=== PATIENT | female | born 1930 | race Caucasian/White ===

== ENCOUNTER 2017-05-30 09:54 | Emergency (ER) | payer BC, OTHER ==
[~2017-05-30] VITALS: Ht 160 cm; Wt 94.2 kg
[~2017-05-30 09:54] MED LIST: ASPI81TA28 PO; ATEN-173 PO; CYAN100020 PO; FURO20TA PO; LCTX PO; LISI-461 PO; MAGN400T6 PO; OMEP20CA9 PO; PRVHFAIN INH; SYN50 PO; XPNINS1255 INH; ZCR40 PO
[2017-05-30 10:00] VITALS: TEMP 36.8; Ht 160 cm; Wt 94.2 kg
[2017-05-30] MEDS ORDERED: SNG10 PO (10:06)
[2017-05-30] MEDS ORDERED: KETOROLAC TROMETHAMINE 30 MG/ML VIAL IV STA (10:24)
--- NOTE | 2017-05-30 10:54 | EMERGENCY ROOM VISIT NOTE ---
History Report prepared by Sukh: Claude Melton Under the Supervision of: Dr. Navarro Eng M.D. First contact with patient: 10:18 Chief Complaint: HIP PAIN Stated Complaint: HIP PAIN History of Present Illness The patient is a 86 year old female who presents to the Emergency Room with complaints of persistent right hip pain beginning six days ago. She states that her pain radiates up and into her lower back. She has a history of chronic back pain and multiple back surgeries. The patient's pain is worsened with walking. She denies any recent falls, straining or trauma. She also complains of right leg "heaviness" and bilateral leg "stiffness". The patient denies any known fevers, abdominal pain, chest pain, SOB, urinary symptoms, or loss of bowel or bladder continence. She notes that she was placed on a dieretic last week for leg swelling. She is on aspirin, but denies any other blood thinner use. Source of History: patient Onset: six days ago Position: pelvis (right hip) Timing: other (persistent) Associated Symptoms: + back pain (radiating from hip), No fevers, No chest pain, No SOB, No abdominal pain, No urinary symptoms Note: The patient denies loss of bowel or bladder continence. She also complains of right leg "heaviness" and bilateral leg "stiffness". Review of Systems See HPI for pertinent positives & negatives. A total of 10 systems reviewed and were otherwise negative. Past Medical & Surgical Medical Problems: (1) Acute bronchitis (2) CKD (chronic kidney disease), stage III (3) Degenerative disc disease, lumbar (4) Diastolic heart failure (5) GERD (gastroesophageal reflux disease) (6) H/o asthmatic bronchitis (7) H/O herpes zoster (8) History of hysteroscopy (9) History of left heart catheterization (10) Hyperlipidemia (11) Hypertension (12) Meningioma (13) Osteoporosis (14) Primary hyperparathyroidism (15) S/p removal right ovarian cyst (16) Stroke-like symptoms (17) Stroke-like symptoms (18) Tubular adenoma of colon (19) Venous insufficiency Surgical Problems: (1) H/O colonoscopy (2) History of ankle surgery (3) History of back surgery (4) History of carpal tunnel surgery (5) History of cataract surgery (6) s/p ankle fracture repair (7) S/P appendectomy (8) S/p cervical laminectomy (9) S/P colonoscopy (10) S/p EGD (11) S/P lumbar laminectomy Old medical records were reviewed. Nurse's notes were reviewed and I agree with. Family History Cancer Heart disease Social History Smoking Status: Never Smoker Drug Use: none Marital Status: Housing Status: lives alone Occupation Status: retired Current/Historical Medications Scheduled Aspirin (Aspirin Ec), 81 MG PO BID Atenolol (Tenormin), 25 MG PO QAM Cholecalciferol (Vitamin D3), 2,000 INTER.UNIT PO DAILY Lactobacillus Acidophilus (Lactinex), 1 TAB PO QAM Levothyroxine Sodium (Synthroid), 50 MCG PO QAM Lisinopril (Lisinopril), 5 MG PO QAM Magnesium Oxide (Mag-Ox), 400 MG PO QAM Montelukast Sod (Montelukast Sodium), 10 MG PO DAILY Omeprazole (Prilosec), 20 MG PO BID Simvastatin (Simvastatin), 40 MG PO HS Scheduled PRN Albuterol (Ventolin Hfa), 2 PUFF INH Q6H PRN for Wheezing Furosemide (Lasix), 20 MG PO DAILY PRN for PRN Levalbuterol (Levalbuterol), 0.63 MG INH Q6R PRN for Wheezing Oxycodone Immediate Rel Tab (Roxicodone Ir), 1 TAB PO Q6 PRN for Severe Pain Allergies Coded Allergies: No Known Allergies (Verified , 05/30/17) Physical Exam Vital Signs Date Time Temp Pulse Resp B/P (MAP) Pulse Ox O2 Delivery O2 Flow Rate FiO2 05/30/17 16:51 61 16 152/67 97 Room Air 05/30/17 16:07 57 18 134/64 96 Room Air 05/30/17 14:26 66 16 155/75 97 Room Air 05/30/17 13:08 63 16 189/67 96 Room Air 05/30/17 11:45 60 16 171/78 99 05/30/17 10:00 36.8 71 18 179/87 99 Room Air Physical Exam General: non-ill appearing older female in no acute distress. HEENT: Normal cephalic atraumatic. Pupils are equal round and reactive to light. Extraocular movements are intact. Oropharynx is pink with moist mucous membranes. No swelling of the mouth lips or tongue. Neck: Supple with a midline trachea. No meningeal signs or stiffness, no JVD or bruits. No Stridor. Chest: Clear to auscultation bilaterally. No wheezes or rhonchi. No increased work of breathing. Heart: regular rate and rhythm. Abdomen: Soft nontender, nondistended without rebound guarding or rigidity. Extremities: Pain along the right SI joint which is worse with movement. Spine/Back. Non tender to palpation. No CVA tenderness Skin: Good turgor without rashes. Neurologic exam: Cranial nerves two through 12 are intact. Motor and sensation are intact and symmetrical throughout. Medical Decision & Procedures ER Provider Diagnostic Interpretation: CT results as stated below per my review and radiologist interpretation: LUMBAR SPINE WITHOUT FINDINGS: Findings consistent with posterior laminectomies and fusions from L3 through L5. Interpedicular screws appear to be positioned appropriately. Vertebral body stature is normal. There is a disc spacer at L4-L5. There are degenerative intervertebral this changes L5-S1. There is a minimal grade 1 reversal spinal listhesis of L2 on L3. This is no more than 2 mm. Moderate degenerative disc changes noted throughout. By CT criteria no major compromise of the spinal canal. The transaxial images suggest moderate narrowing of the spinal canal at L2-L3 on a multifactorial basis. No additional stenotic process is appreciated. IMPRESSION: 1. Findings consistent with laminectomy and fusion from L3 through L5. 2. Moderate degenerative disc change throughout. 3. Moderate multifactorial narrowing of the spinal canal at L2-L3 The above report was generated using voice recognition software. It may contain grammatical, syntax or spelling errors. Electronically signed by: Valeriano Burnette M.D. ABD/PELVIS WITHOUT FOR STONE FINDINGS: Lung bases are clear. Liver spleen and pancreas are considered unremarkable. Kidneys negative for calcification or hydronephrosis. There are findings of mild chronic sigmoid diverticulosis. There is no evidence for acute diverticulitis. Postoperative changes of the lumbar spine including laminectomy and fusion are again noted. IMPRESSION: No acute process of the abdomen or pelvis. Postoperative changes of lumbar spine. Mild chronic sigmoid diverticulosis with no evidence for acute diverticulitis. The above report was generated using voice recognition software. It may contain grammatical, syntax or spelling errors. Electronically signed by: Valeriano Burnetet M.D. Laboratory Results 05/30/17 10:45 Red Blood Count 4.11, Mean Corpuscular Volume 92.5, Mean Corpuscular Hemoglobin 31.9, Mean Corpuscular Hemoglobin Concent 34.5, Mean Platelet Volume 9.6, Neutrophils (%) (Auto) 64.9, Lymphocytes (%) (Auto) 24.2, Monocytes (%) (Auto) 9.0, Eosinophils (%) (Auto) 1.3, Basophils (%) (Auto) 0.4, Neutrophils # (Auto) 3.59, Lymphocytes # (Auto) 1.34, Monocytes # (Auto) 0.50, Eosinophils # (Auto) 0.07, Basophils # (Auto) 0.02 05/30/17 10:45 Test 05/30/17 10:45 05/30/17 10:55 White Blood Count 5.53 K/uL (4.8-10.8) Red Blood Count 4.11 M/uL (4.2-5.4) Hemoglobin 13.1 g/dL (12.0-16.0) Hematocrit 38.0 % (37-47) Mean Corpuscular Volume 92.5 fL (80-100) Mean Corpuscular Hemoglobin 31.9 pg (25-34) Mean Corpuscular Hemoglobin Concent 34.5 g/dl (32-36) Platelet Count 201 K/uL (130-400) Mean Platelet Volume 9.6 fL (7.4-10.4) Neutrophils (%) (Auto) 64.9 % Lymphocytes (%) (Auto) 24.2 % Monocytes (%) (Auto) 9.0 % Eosinophils (%) (Auto) 1.3 % Basophils (%) (Auto) 0.4 % Neutrophils # (Auto) 3.59 K/uL (1.4-6.5) Lymphocytes # (Auto) 1.34 K/uL (1.2-3.4) Monocytes # (Auto) 0.50 K/uL (0.11-0.59) Eosinophils # (Auto) 0.07 K/uL (0-0.5) Basophils # (Auto) 0.02 K/uL (0-0.2) RDW Standard Deviation 42.3 fL (36.4-46.3) RDW Coefficient of Variation 12.5 % (11.5-14.5) Immature Granulocyte % (Auto) 0.2 % Immature Granulocyte # (Auto) 0.01 K/uL (0.00-0.02) Anion Gap 4.0 mmol/L (3-11) Est Creatinine Clear Calc Drug Dose 46.3 ml/min Estimated GFR () 61.7 Estimated GFR (Non- 53.3 BUN/Creatinine Ratio 10.6 (10-20) Calcium Level 9.3 mg/dl (8.5-10.1) Total Bilirubin 0.3 mg/dl (0.2-1) Direct Bilirubin 0.1 mg/dl (0-0.2) Aspartate Amino Transf (AST/SGOT) 17 U/L (15-37) Alanine Aminotransferase (ALT/SGPT) 20 U/L (12-78) Alkaline Phosphatase 59 U/L (45-117) Total Protein 6.3 gm/dl (6.4-8.2) Albumin 3.5 gm/dl (3.4-5.0) Lipase 143 U/L (73-393) Urine Color YELLOW Urine Appearance CLEAR (CLEAR) Urine pH 8.0 (4.5-7.5) Urine Specific [place] 1.012 (1.000-1.030) Urine Protein NEG (NEG) Urine Glucose (UA) NEG (NEG) Urine Ketones NEG (NEG) Urine Occult Blood NEG (NEG) Urine Nitrite NEG (NEG) Urine Bilirubin NEG (NEG) Urine Urobilinogen NEG (NEG) Urine Leukocyte Esterase NEG (NEG) Laboratory studies as stated above per my review. Medications Administered Medications (Trade) Dose Ordered Sig/Shiraz Route Start Time Stop Time Status Last Admin Dose Admin Ketorolac Tromethamine (Toradol Inj) 15 mg NOW STAT IV 05/30/17 10:24 05/30/17 10:27 DC 05/30/17 10:50 15 MG Ondansetron HCl (Zofran Inj) 4 mg NOW STAT IV 05/30/17 12:12 05/30/17 12:13 DC 05/30/17 12:19 4 MG Morphine Sulfate (MoRPHine SULFATE INJ) 2 mg NOW STAT IV 05/30/17 12:12 05/30/17 12:13 DC 05/30/17 12:20 2 MG ED Course 1018: Past medical records reviewed. The patient was evaluated in room A9B, and a complete history and physical examination were performed. 1024: Ordered Toradol Inj 15 mg IV. 1135: I checked in on the patient. She is at CT. 1210: I reassessed the patient. She is still having pain. 1212: Ordered Morphine Sulfate 2 mg IV, Zofran Inj 4 mg IV. 1310: I discussed the patient's case with the machine adjuster leader case trim. The patient will be evaluate for PT/OT. 1545: Upon reevaluation, the patient is resting. I discussed the results and treatment plan with the patient. She verbalized agreement of the treatment plan. The patient will be transferred to [facility]. Medical Decision Differentials include, but are not limited to; musculoskeletal, disc disease, cauda equina, trauma and electrolyte or metabolic abnormality. Blood pressure Screening: Patient was found to have an elevated blood pressure and was referred to their primary doctor for recheck and further treatment. Medication Reconciliation: I attest that I have personally reviewed the patient' s current medication list. This patient comes in as described above. She was placed in room A9. She was evaluation right SI joint and hip pain as well as back pain is worse with movement. She had no neurologic deficit or cauda equina syndrome. She's had back surgeries in the past. IV access established was given IV Toradol 15 mg. Blood work was obtained as well as urinalysis CAT scans were also obtained. She continues to have a lot of pain but only with movement. She was given IV morphine and Zofran and again felt better but she does not feel she can adequately go home as it hurts to move and she lives by herself. She has nothing to suggest infection or significant electrolyte or metabolic abnormality. CAT scan showed degenerative changes of the back. I did have her case management team talk to her. They are going to send her to rehabilitation. She did receive PT and OT evaluation. Her blood pressure was noted to be high in the ER however it came down on it's own. She's been treated for this and should follow-up with her regular doctor. She can use OxyIR for pain she tells me she's had this before 1 pill every 6 hours but was told to get up with assistance only. Return if: increasing pain, numbness or weakness, any new problems or concerns. she is going to be transferred to the halfway for rehabilitation. Impression Primary Impression: Right hip pain Additional Impression: Low back pain Scribe Attestation The scribe's documentation has been prepared under my direction and personally reviewed by me in its entirety. I confirm that the note above accurately reflects all work, treatment, procedures, and medical decision making performed by me. Departure Information Dispostion Other (Transferred to [facility]) Prescriptions Oxycodone Immediate Rel Tab (ROXICODONE IR) 5 Mg Tab 1 TAB PO Q6 Y for Severe Pain, #15 TAB Prov: Navarro Eng M.D. 05/30/17 Referrals Blanca Wynn M.D. (PCP) Patient Instructions My [facility] Problem Qualifiers
[2017-05-30 10:56] LABS: BASO % 0.4 %; BASO ABS # 0.02 K/uL (0-0.2); COMPLETE YES; EOS % 1.3 %; IG% 0.2 %; LYMPH % 24.2 %; LYMPH ABS # 1.34 K/uL (1.2-3.4); MEAN CELL VOLUME 92.5 fL (80-100); MEAN CORPUSCULAR HEMOGLOBIN 31.9 pg (25-34); MEAN CORPUSCULAR HGB CONC 34.5 g/dl (32-36); MEAN PLATELET VOLUME 9.6 fL (7.4-10.4); NEUT % 64.9 %; PLATELET COUNT 201 K/uL (130-400); RED BLOOD COUNT 4.11 M/uL (4.2-5.4); WHITE BLOOD COUNT 5.53 K/uL (4.8-10.8)
[2017-05-30 11:10] LABS: URINE APPEARANCE CLEAR (CLEAR); URINE BILIRUBIN NEG (NEG); URINE COLOR YELLOW; URINE NITRITE NEG (NEG); URINE SPECIFIC GRAVITY 1.012 (1.000-1.030); UROBILINOGEN NEG (NEG)
[2017-05-30 11:12] LABS: MANUAL MICROSCOPIC REQUIRED? NO; REVIEW REQ? NO
[2017-05-30 11:15] LABS: BUN/CREATININE RATIO 10.6 (10-20); CALCIUM 9.3 mg/dl (8.5-10.1); CREATININE 0.97 mg/dl (0.60-1.20); POTASSIUM 4.5 mmol/L (3.5-5.1)
--- NOTE | 2017-05-30 11:48 | DIAGNOSTIC IMAGING REPORT ---
LUMBAR SPINE WITHOUT CT DOSE: 1338.55 mGy.cm HISTORY: Pain. Neuropathy. eval for pain on right TECHNIQUE: Multiaxial CT images of the lumbar spine were performed and reformatted in the sagittal and coronal plane without the use of contrast. COMPARISON: None. FINDINGS: Findings consistent with posterior laminectomies and fusions from L3 through L5. Interpedicular screws appear to be positioned appropriately. Vertebral body stature is normal. There is a disc spacer at L4-L5. There are degenerative intervertebral this changes L5-S1. There is a minimal grade 1 reversal spinal listhesis of L2 on L3. This is no more than 2 mm. Moderate degenerative disc changes noted throughout. By CT criteria no major compromise of the spinal canal. The transaxial images suggest moderate narrowing of the spinal canal at L2-L3 on a multifactorial basis. No additional stenotic process is appreciated. IMPRESSION: 1. Findings consistent with laminectomy and fusion from L3 through L5. 2. Moderate degenerative disc change throughout. 3. Moderate multifactorial narrowing of the spinal canal at L2-L3 The above report was generated using voice recognition software. It may contain grammatical, syntax or spelling errors. Electronically signed by: Valeriano Burnette M.D. 05/30/2017 11:47 AM Dictated Date/Time: 05/30/2017 11:44 AM
--- NOTE | 2017-05-30 12:01 | DIAGNOSTIC IMAGING REPORT ---
ABD/PELVIS WITHOUT FOR STONE CT DOSE: HISTORY: Pain eval for stone, hematoma, pelvic disease TECHNIQUE: Multiaxial CT images of the abdomen and pelvis were performed without the use of intravenous and oral contrast according to the standard department stone protocol. COMPARISON STUDY: None. FINDINGS: Lung bases are clear. Liver spleen and pancreas are considered unremarkable. Kidneys negative for calcification or hydronephrosis. There are findings of mild chronic sigmoid diverticulosis. There is no evidence for acute diverticulitis. Postoperative changes of the lumbar spine including laminectomy and fusion are again noted. IMPRESSION: No acute process of the abdomen or pelvis. Postoperative changes of lumbar spine. Mild chronic sigmoid diverticulosis with no evidence for acute diverticulitis. The above report was generated using voice recognition software. It may contain grammatical, syntax or spelling errors. Electronically signed by: Valeriano Burnette M.D. 05/30/2017 12:00 PM Dictated Date/Time: 05/30/2017 11:58 AM
[2017-05-30] MEDS ORDERED: CHOL20007 PO (12:02)
[2017-05-30] MEDS ORDERED: MoRPHine SULFATE 2 MG/ML CARP IV STA (12:12)
[2017-05-30] MEDS ORDERED: ONDANSETRON INJ 2 MG/ML 2 ML VIAL IV STA (12:12)
[2017-05-30] MEDS ORDERED: OXYC1TAB3 PO (15:55)
[2017-05-30 16:51] VITALS: BP 152/67; PULSE 61; O2SAT 97
== END 2017-05-30 17:14 ==
LOC: EDBD 09:54 → C.EDA 09:58
DX: M25.551 Pain in right hip (principal); M54.5 Low back pain; G89.29 Other chronic pain; N18.3 Chronic kidney disease, stage 3 (moderate); I12.9 Hypertensive chronic kidney disease with stage 1 through stage 4 chronic kidney disease, or unspecified chronic kidney disease; K21.9 Gastro-esophageal reflux disease without esophagitis; E78.5 Hyperlipidemia, unspecified; M81.0 Age-related osteoporosis without current pathological fracture; E21.0 Primary hyperparathyroidism; Z98.49 Cataract extraction status, unspecified eye; Z80.9 Family history of malignant neoplasm, unspecified; Z79.82 Long term (current) use of aspirin; Z79.899 Other long term (current) drug therapy

== ENCOUNTER 2017-11-06 16:08 | Inpatient (IN) | payer BC, OTHER ==
[~2017-11-06] VITALS: Ht 162.6 cm; Wt 90.6 kg
[~2017-11-06 16:08] MED LIST changes: +CHOL20007 PO; -CYAN100020 PO; +OXYC1TAB3 PO; +SNG10 PO
[2017-11-06] MEDS ORDERED: ALBUT/IPRATROP 3MG/0.5MG NEB 3 ML VIAL INH STA ×3 (16:30→18:33)
[2017-11-06] MEDS ORDERED: METHYLPREDNISOLONE 125 MG VIAL IV STA (16:30)
[2017-11-06 16:40] LABS: COMPLETE YES; HEMATOCRIT 41.8 % (37-47); IG% 0.2 %; LYMPH % 23.3 %; LYMPH ABS # 1.02 K/uL (1.2-3.4); MEAN CELL VOLUME 92.3 fL (80-100); MEAN CORPUSCULAR HEMOGLOBIN 31.6 pg (25-34); MEAN CORPUSCULAR HGB CONC 34.2 g/dl (32-36); MONO % 6.2 %; NEUT % 70.3 %; PLATELET COUNT 216 K/uL (130-400); RED BLOOD COUNT 4.53 M/uL (4.2-5.4); WHITE BLOOD COUNT 4.38 K/uL (4.8-10.8)
[2017-11-06 16:55] LABS: ALT/SGPT 28 U/L (12-78); BLOOD UREA NITROGEN 16 mg/dl (7-18); BUN/CREATININE RATIO 12.7 (10-20); CALCIUM 10.2 mg/dl (8.5-10.1); CARBON DIOXIDE 20 mmol/L (21-32); CHLORIDE 104 mmol/L (98-107); CREATININE 1.28 mg/dl (0.60-1.20); GLUCOSE 167 mg/dl (70-99); POTASSIUM 3.9 mmol/L (3.5-5.1); SODIUM 137 mmol/L (136-145)
[2017-11-06 17:00] LABS: ALB/GLOB RATIO 1.1 (0.9-2); ALKALINE PHOSPHATASE 70 U/L (45-117); AST/SGOT 29 U/L (15-37); CKMB/CK RATIO 2.2 (0-3.0)
[2017-11-06] MEDS ORDERED: METO25TA3 PO (17:01)
[2017-11-06] MEDS ORDERED: LSN5 PO (17:01)
--- NOTE | 2017-11-06 17:05 | DIAGNOSTIC IMAGING REPORT ---
CHEST ONE VIEW PORTABLE CLINICAL HISTORY: 87 years-old Female presenting with EVALUATE RESPIRATORY DISTRESS.DYSPNEA. TECHNIQUE: Portable upright AP view of the chest was obtained. COMPARISON: 08/19/2016. FINDINGS: Atherosclerosis of aortic arch. Cardiac silhouette mildly enlarged. Lungs and pleural spaces clear. Apparent nodular opacity at the left lung base correlates to calcification within a costochondral junction. Degenerative changes of the thoracic spine. Upper abdomen normal. IMPRESSION: 1. No acute cardiopulmonary disease. Electronically signed by: Bhanu Love M.D. 11/06/2017 5:04 PM Dictated Date/Time: 11/06/2017 5:02 PM
[2017-11-06] MEDS ORDERED: ALBUTEROL HFA 8 GM INHALER INH PRN (18:45)
[2017-11-06] MEDS ORDERED: ACETAMINOPHEN 325 MG TAB PO PRN (18:45)
[2017-11-06] MEDS ORDERED: ONDANSETRON INJ 2 MG/ML 2 ML VIAL IV PRN (18:45)
--- NOTE | 2017-11-06 19:15 | History and Physical ---
History & Physical Date & Time of Service: Nov 06, 2017 at 18:58 Chief Complaint: Sob, Cough- Bronchitis, Weak, Shakey Primary Care Physician: Aime Pena M.D.(REED) History of Present Illness Source: patient, clinic records, hospital records This is an 87 year old female with a PMH of asthmatic bronchitis, HTN, HLD, hypothyroidism, ventricular ectopy, CKD stage 3, GERD, presents with a three day history of wheezing, shortness of breath, weakness. States that on MondayNovember 01 - she developed some sore throat symptoms. She thought nothing much of it, but then on Monday, she suddenly developed weakness, shortness of breath and audible wheezing. She was seen by Dr. Shi on November 04 and was given prednisone and Levaquin. She states that the symptoms did not improve. She presented to the ER with worsening shortness of breath and wheezing. Upon presentation, she received three nebulizer treatments and IV steroids with some improvement, but she continued to wheeze and feel weak. Denies chest pain, currently denies palpitations, though she has had these in the past. She felt feverish at home, but no documented fevers were noted. Past Medical/Surgical History Medical Problems: (1) CKD (chronic kidney disease), stage III Status: Chronic (2) Degenerative disc disease, lumbar Status: Chronic (3) Diastolic heart failure Status: Chronic (4) GERD (gastroesophageal reflux disease) Status: Chronic (5) H/o asthmatic bronchitis Status: Chronic (6) H/O herpes zoster Permanent Comment: prior shingles right T12 Status: Chronic (7) History of hysteroscopy Permanent Comment: cervical polypectomy Status: Chronic (8) History of left heart catheterization Permanent Comment: 02/27/03- Normal coronaries and LV function Status: Chronic (9) Hyperlipidemia Status: Chronic (10) Hypertension Status: Chronic (11) Meningioma Status: Chronic (12) Osteoporosis Status: Chronic (13) Primary hyperparathyroidism Status: Chronic (14) S/p removal right ovarian cyst Status: Chronic (15) Tubular adenoma of colon Status: Chronic (16) Venous insufficiency Status: Chronic Surgical Problems: (1) H/O colonoscopy Permanent Comment: 12/02/2010- diverticulosis Status: Chronic (2) History of ankle surgery Status: Chronic (3) History of back surgery Status: Chronic (4) History of carpal tunnel surgery Permanent Comment: bilateral Status: Chronic (5) History of cataract surgery Status: Chronic (6) s/p ankle fracture repair Status: Chronic (7) S/P appendectomy Status: Chronic (8) S/p cervical laminectomy Status: Chronic (9) S/P colonoscopy Status: Chronic (10) S/p EGD Status: Chronic (11) S/P lumbar laminectomy Status: Chronic Family History Cancer Heart disease Social History Smoking Status: Never Smoker Drug Use: none Marital Status: Housing status: lives alone Occupational Status: retired Immunizations History of Influenza Vaccine: Yes Influenza Vaccine Date: Aug 18, 2013 History of Tetanus Vaccine?: Unknown Tetanus Immunization Date: May 21, 2008 History of Pneumococcal: Yes Pneumococcal Date: Dec 19, 2010 History of Hepatitis B Vaccine: No Multi-Drug Resistant Organisms History of MDRO: No Allergies Coded Allergies: No Known Allergies (Verified , 11/06/17) Home Medications Scheduled Aspirin (Aspirin Ec), 81 MG PO BID Cholecalciferol (Vitamin D3), 2,000 INTER.UNIT PO DAILY Levothyroxine Sodium (Synthroid), 50 MCG PO QAM Lisinopril (Lisinopril), 5 MG PO DAILY Magnesium Oxide (Mag-Ox), 400 MG PO QAM Metoprolol Succinate (Toprol Xl), 25 MG PO DAILY Montelukast Sod (Montelukast Sodium), 10 MG PO HS Omeprazole (Prilosec), 20 MG PO BID Simvastatin (Simvastatin), 40 MG PO HS Scheduled PRN Albuterol (Ventolin Hfa), 2 PUFF INH Q6H PRN for Wheezing Furosemide (Lasix), 20 MG PO 2-3XWK PRN for PRN Review of Systems Constitutional: + fever, + weakness, No chills, No sweats, No weight loss, No fatigue Respiratory: + cough, + wheezing, + shortness of breath, + dyspnea on exertion , + dyspnea at rest, No sputum, No hemoptysis Cardiovascular: No chest pain, No orthopnea, No edema, No palpitations Abdomen: No pain, No nausea, No vomiting, No diarrhea, No constipation, No GI bleeding Musculoskeletal: + calf pain, No joint pain, No muscle pain, No swelling Genitourinary - Female: No dysuria, No urinary frequency, No urinary urgency, No urinary incontinence, No urinary retention, No hematuria Neurologic: + weakness, No numbness/tingling, No vertigo, No balance problems Psychiatric: No depression symptoms, No anxiety, No insomnia Endocrine: No fatigue Hematologic / Lymphatic: No abnormal bleeding/bruising Integumentary: No rash, No itch Allergic / Immunologic: No environmental allergies, No seasonal allergies, No frequent infections Physical Exam Vital Signs Date Time Temp Pulse Resp B/P (MAP) Pulse Ox O2 Delivery O2 Flow Rate FiO2 11/06/17 17:58 81 17 93 11/06/17 17:43 86 18 95 11/06/17 17:32 133/74 11/06/17 17:28 83 15 92 11/06/17 17:23 109 19 93 11/06/17 17:08 91 15 93 11/06/17 17:01 150/76 11/06/17 16:56 138/86 11/06/17 16:53 93 18 98 11/06/17 16:38 89 32 96 11/06/17 16:31 96 Room Air 11/06/17 16:31 95 Room Air 11/06/17 16:31 95 Room Air 11/06/17 16:23 102 21 96 11/06/17 16:20 181/96 11/06/17 16:13 36.5 132 20 158/92 95 Room Air General Appearance: WD/WN, + mild distress (mild respiratory distress) Head: normocephalic, atraumatic Eyes: normal inspection ENT: hearing grossly normal Neck: supple Respiratory/Chest: chest non-tender, no respiratory distress, no accessory muscle use, + wheezing (diffuse end expiratory wheezing) Cardiovascular: regular rate, rhythm, no edema, no gallop, no JVD, no murmur, normal peripheral pulses Abdomen/GI: normal bowel sounds, non tender, soft Extremities/Musculoskelatal: no calf tenderness, no pedal edema, normal range of motion, + swelling (LLE swelling, chronic) Neurologic/Psych: hand decorator II-XII nml as tested, no motor/sensory deficits, alert, normal mood/affect, oriented x 3 Skin: normal color, warm/dry, no rash Lymphatic: no adenopathy Diagnostics Laboratory Results Results Past 24 Hours Test 11/06/17 16:25 11/06/17 16:40 Range/Units White Blood Count 4.38 4.8-10.8 K/uL Red Blood Count 4.53 4.2-5.4 M/uL Hemoglobin 14.3 12.0-16.0 g/dL Hematocrit 41.8 37-47 % Mean Corpuscular Volume 92.3 80-100 fL Mean Corpuscular Hemoglobin 31.6 25-34 pg Mean Corpuscular Hemoglobin Concent 34.2 32-36 g/dl Platelet Count 216 130-400 K/uL Mean Platelet Volume 10.0 7.4-10.4 fL Neutrophils (%) (Auto) 70.3 % Lymphocytes (%) (Auto) 23.3 % Monocytes (%) (Auto) 6.2 % Eosinophils (%) (Auto) 0.0 % Basophils (%) (Auto) 0.0 % Neutrophils # (Auto) 3.08 1.4-6.5 K/uL Lymphocytes # (Auto) 1.02 1.2-3.4 K/uL Monocytes # (Auto) 0.27 0.11-0.59 K/uL Eosinophils # (Auto) 0.00 0-0.5 K/uL Basophils # (Auto) 0.00 0-0.2 K/uL RDW Standard Deviation 42.9 36.4-46.3 fL RDW Coefficient of Variation 12.8 11.5-14.5 % Immature Granulocyte % (Auto) 0.2 % Immature Granulocyte # (Auto) 0.01 0.00-0.02 K/uL Sodium Level 137 136-145 mmol/L Potassium Level 3.9 3.5-5.1 mmol/L Chloride Level 104 98-107 mmol/L Carbon Dioxide Level 20 21-32 mmol/L Anion Gap 12.0 3-11 mmol/L Blood Urea Nitrogen 16 7-18 mg/dl Creatinine 1.28 0.60-1.20 mg/dl Est Creatinine Clear Calc Drug Dose 34.1 ml/min Estimated GFR () 43.8 Estimated GFR (Non- 37.8 BUN/Creatinine Ratio 12.7 10-20 Random Glucose 167 70-99 mg/dl Calcium Level 10.2 8.5-10.1 mg/dl Total Bilirubin 0.3 0.2-1 mg/dl Aspartate Amino Transf (AST/SGOT) 29 15-37 U/L Alanine Aminotransferase (ALT/SGPT) 28 12-78 U/L Alkaline Phosphatase 70 45-117 U/L Total Creatine Kinase 82 26-192 U/L Creatine Kinase MB 1.8 0.5-3.6 ng/ml Creatine Kinase MB Ratio 2.2 0-3.0 Troponin I < 0.015 0-0.045 ng/ml Total Protein 7.5 6.4-8.2 gm/dl Albumin 4.0 3.4-5.0 gm/dl Globulin 3.5 2.5-4.0 gm/dl Albumin/Globulin Ratio 1.1 0.9-2 Influenza Type A Antigen Neg for Influ A NEG Influenza Type B Antigen Neg for Influ B NEG Microbiology Results 11/06/17 Blood Culture, Received Pending 11/06/17 Blood Culture, Received Pending Diagnostic Radiology CHEST ONE VIEW PORTABLE CLINICAL HISTORY: 87 years-old Female presenting with EVALUATE RESPIRATORY DISTRESS.DYSPNEA. TECHNIQUE: Portable upright AP view of the chest was obtained. COMPARISON: 08/19/2016. FINDINGS: Atherosclerosis of aortic arch. Cardiac silhouette mildly enlarged. Lungs and pleural spaces clear. Apparent nodular opacity at the left lung base correlates to calcification within a costochondral junction. Degenerative changes of the thoracic spine. Upper abdomen normal. IMPRESSION: 1. No acute cardiopulmonary disease. Impression Assessment and Plan This is an 87 year old female with a PMH of asthmatic bronchitis, HTN, HLD, hypothyroidism, ventricular ectopy, CKD stage 3, GERD, presents with a three day history of wheezing, shortness of breath, weakness. Acute Viral Bronchitis and Asthma Exacerbation hx. of recurrent asthmatic bronchitis failed outpatient prednisone and Levaquin treatment will admit to med/surg add Azithromycin and IV solu-medrol nebulizers around the clock - Xopenex due to tachycardia unlikely bacterial infection sees pulmonary as outpatient, but did not consult as of now HTN continue Lisinopril HLD continue Zocor Ventricular Ectopy continue Toprol CKD stage 3 creatinine at baseline follows with nephrology as outpatient Hx. of possible TIA takes aspirin 81mg BID as per neurology DVT ppx subq heparin FULL CODE PT/OT/discharge planning ordered - > 80yrs. old and lives alone Level of Care Med/Surg Resuscitation Status FULL RESUSCITATION VTE Prophylaxis VTE Risk Assessment Done? Y/N: Yes Risk Level: Moderate Social Service Consult >80 yr.& Lives Alone
[2017-11-06 20:15] VITALS: BP 160/81; PULSE 112; TEMP 36.5; O2SAT 96; Ht 162.6 cm; Wt 90.6 kg
--- NOTE | 2017-11-06 20:15 | EMERGENCY ROOM VISIT NOTE ---
History Report prepared by Sukh: Niya Rizzo Under the Supervision of: Dr. Ranjeet Raymond M.D. First contact with patient: 16:19 Chief Complaint: RESPIRATORY PROBLEMS Stated Complaint: SOB, COUGH- BRONCHITIS, WEAK, SHAKEY History of Present Illness The patient is an 87 year old female who presents to the Emergency Room with complaints of worsening respiratory problems starting two days ago. The patient states that it started as a runny nose and a scratchy throat six days ago. She reports that one day later she had a little cough, but no wheezing. She reports two days ago she started wheezing and it had progressively gotten worse. The patient states that she has had Bronchitis often and was given an emergency pack to start when she starts wheezing. She notes that she started to take them , but think that it was too late. She states that she visited [facility] and was given Prednisone and Levaquin. The patient complains of feeling nauseous, diaphoretic, having a cough, and left sided chest pain. She denies a history of lung problems, being a smoker, being around someone sick, and leg swelling. The patient notes a history of hypertension. Pt denies LOC, headache, fevers, chills, visual changes, neck pain, vomiting, abdominal pain, back pain, melena, hematochezia, urinary symptoms, numbness, weakness, lymphadenopathy, rash, or other complaints. Source of History: patient Onset: two days ago Position: other (global) Quality: other (global) Timing: worsening Associated Symptoms: + diaphoresis, + sorethroat, + cough, + chest pain, + nausea Note: The patient complains of a runny nose. Review of Systems See HPI for pertinent positives and negatives. A total of ten systems were reviewed and were otherwise negative. Past Medical & Surgical Medical Problems: (1) Acute bronchitis (2) CKD (chronic kidney disease), stage III (3) Degenerative disc disease, lumbar (4) Diastolic heart failure (5) GERD (gastroesophageal reflux disease) (6) H/o asthmatic bronchitis (7) H/O herpes zoster (8) History of hysteroscopy (9) History of left heart catheterization (10) Hyperlipidemia (11) Hypertension (12) Meningioma (13) Osteoporosis (14) Primary hyperparathyroidism (15) S/p removal right ovarian cyst (16) Stroke-like symptoms (17) Stroke-like symptoms (18) Tubular adenoma of colon (19) Venous insufficiency Surgical Problems: (1) H/O colonoscopy (2) History of ankle surgery (3) History of back surgery (4) History of carpal tunnel surgery (5) History of cataract surgery (6) s/p ankle fracture repair (7) S/P appendectomy (8) S/p cervical laminectomy (9) S/P colonoscopy (10) S/p EGD (11) S/P lumbar laminectomy Family History Cancer Heart disease Social History Smoking Status: Never Smoker Drug Use: none Marital Status: Housing Status: lives alone Occupation Status: retired Current/Historical Medications Scheduled Aspirin (Aspirin Ec), 81 MG PO BID Cholecalciferol (Vitamin D3), 2,000 INTER.UNIT PO DAILY Levothyroxine Sodium (Synthroid), 50 MCG PO QAM Lisinopril (Lisinopril), 5 MG PO DAILY Magnesium Oxide (Mag-Ox), 400 MG PO QAM Metoprolol Succinate (Toprol Xl), 25 MG PO DAILY Montelukast Sod (Montelukast Sodium), 10 MG PO HS Omeprazole (Prilosec), 20 MG PO BID Simvastatin (Simvastatin), 40 MG PO HS Scheduled PRN Albuterol (Ventolin Hfa), 2 PUFF INH Q6H PRN for Wheezing Furosemide (Lasix), 20 MG PO 2-3XWK PRN for PRN Allergies Coded Allergies: No Known Allergies (Verified , 11/06/17) Physical Exam Vital Signs Date Time Temp Pulse Resp B/P (MAP) Pulse Ox O2 Delivery O2 Flow Rate FiO2 11/06/17 17:58 81 17 93 11/06/17 17:43 86 18 95 11/06/17 17:32 133/74 11/06/17 17:28 83 15 92 11/06/17 17:23 109 19 93 11/06/17 17:08 91 15 93 11/06/17 17:01 150/76 11/06/17 16:56 138/86 11/06/17 16:53 93 18 98 11/06/17 16:38 89 32 96 11/06/17 16:31 96 Room Air 11/06/17 16:31 95 Room Air 11/06/17 16:31 95 Room Air 11/06/17 16:23 102 21 96 11/06/17 16:20 181/96 11/06/17 16:13 36.5 132 20 158/92 95 Room Air Physical Exam GENERAL: Awake, alert, well-appearing, in no distress HENT: Normocephalic, atraumatic. Oropharynx unremarkable. EYES: Normal conjunctiva. Sclera non-icteric. NECK: Supple. No nuchal rigidity. FROM. No JVD. RESPIRATORY: Expiratory wheezing. CARDIAC: Borderline tachycardic rate, normal rhythm. Extremities warm and well perfused. Pulses equal. ABDOMEN: Soft, non-distended. No tenderness to palpation. No rebound or guarding. No masses. RECTAL: Deferred. MUSCULOSKELETAL: Chest examination reveals no tenderness. The back is symmetrical on inspection without obvious abnormality. There is no CVA tenderness to palpation. No joint edema. LOWER EXTREMITIES: Calves are equal size bilaterally and non-tender. No edema. No discoloration. NEURO: Normal sensorium. No sensory or motor deficits noted. SKIN: No rash or jaundice noted. Clammy skin. Medical Decision & Procedures ER Provider Diagnostic Interpretation: Radiology results as stated below per my review and radiologist interpretation: CHEST ONE VIEW PORTABLE CLINICAL HISTORY: 87 years-old Female presenting with EVALUATE RESPIRATORY DISTRESS.DYSPNEA. TECHNIQUE: Portable upright AP view of the chest was obtained. COMPARISON: 08/19/2016. FINDINGS: Atherosclerosis of aortic arch. Cardiac silhouette mildly enlarged. Lungs and pleural spaces clear. Apparent nodular opacity at the left lung base correlates to calcification within a costochondral junction. Degenerative changes of the thoracic spine. Upper abdomen normal. IMPRESSION: 1. No acute cardiopulmonary disease. Electronically signed by: Bhanu Love M.D. 11/06/2017 5:04 PM Dictated Date/Time: 11/06/2017 5:02 PM Laboratory Results 11/06/17 16:25 Red Blood Count 4.53, Mean Corpuscular Volume 92.3, Mean Corpuscular Hemoglobin 31.6, Mean Corpuscular Hemoglobin Concent 34.2, Mean Platelet Volume 10.0, Neutrophils (%) (Auto) 70.3, Lymphocytes (%) (Auto) 23.3, Monocytes (%) (Auto) 6.2, Eosinophils (%) (Auto) 0.0, Basophils (%) (Auto) 0.0, Neutrophils # (Auto) 3.08, Lymphocytes # (Auto) 1.02, Monocytes # (Auto) 0.27, Eosinophils # (Auto) 0.00, Basophils # (Auto) 0.00 11/06/17 16:25 Test 11/06/17 16:25 11/06/17 16:40 White Blood Count 4.38 K/uL (4.8-10.8) Red Blood Count 4.53 M/uL (4.2-5.4) Hemoglobin 14.3 g/dL (12.0-16.0) Hematocrit 41.8 % (37-47) Mean Corpuscular Volume 92.3 fL (80-100) Mean Corpuscular Hemoglobin 31.6 pg (25-34) Mean Corpuscular Hemoglobin Concent 34.2 g/dl (32-36) Platelet Count 216 K/uL (130-400) Mean Platelet Volume 10.0 fL (7.4-10.4) Neutrophils (%) (Auto) 70.3 % Lymphocytes (%) (Auto) 23.3 % Monocytes (%) (Auto) 6.2 % Eosinophils (%) (Auto) 0.0 % Basophils (%) (Auto) 0.0 % Neutrophils # (Auto) 3.08 K/uL (1.4-6.5) Lymphocytes # (Auto) 1.02 K/uL (1.2-3.4) Monocytes # (Auto) 0.27 K/uL (0.11-0.59) Eosinophils # (Auto) 0.00 K/uL (0-0.5) Basophils # (Auto) 0.00 K/uL (0-0.2) RDW Standard Deviation 42.9 fL (36.4-46.3) RDW Coefficient of Variation 12.8 % (11.5-14.5) Immature Granulocyte % (Auto) 0.2 % Immature Granulocyte # (Auto) 0.01 K/uL (0.00-0.02) Anion Gap 12.0 mmol/L (3-11) Est Creatinine Clear Calc Drug Dose 34.1 ml/min Estimated GFR () 43.8 Estimated GFR (Non- 37.8 BUN/Creatinine Ratio 12.7 (10-20) Calcium Level 10.2 mg/dl (8.5-10.1) Total Bilirubin 0.3 mg/dl (0.2-1) Aspartate Amino Transf (AST/SGOT) 29 U/L (15-37) Alanine Aminotransferase (ALT/SGPT) 28 U/L (12-78) Alkaline Phosphatase 70 U/L (45-117) Total Creatine Kinase 82 U/L (26-192) Creatine Kinase MB 1.8 ng/ml (0.5-3.6) Creatine Kinase MB Ratio 2.2 (0-3.0) Troponin I < 0.015 ng/ml (0-0.045) Total Protein 7.5 gm/dl (6.4-8.2) Albumin 4.0 gm/dl (3.4-5.0) Globulin 3.5 gm/dl (2.5-4.0) Albumin/Globulin Ratio 1.1 (0.9-2) Influenza Type A Antigen Neg for Influ A (NEG) Influenza Type B Antigen Neg for Influ B (NEG) Laboratory results reviewed by me Medications Administered Medications (Trade) Dose Ordered Sig/Shiraz Route Start Time Stop Time Status Last Admin Dose Admin Albuterol/ Ipratropium (Duoneb) 3 ml NOW STAT INH 11/06/17 16:30 11/06/17 16:32 DC 11/06/17 16:46 3 ML Methylprednisolone Sodium Succinate (Solu-Medrol IV) 125 mg NOW STAT IV 11/06/17 16:30 11/06/17 16:32 DC 11/06/17 16:46 125 MG Albuterol/ Ipratropium (Duoneb) 3 ml NOW STAT INH 11/06/17 17:27 11/06/17 17:28 DC 11/06/17 17:31 3 ML Albuterol/ Ipratropium (Duoneb) 3 ml NOW STAT INH 11/06/17 18:33 11/06/17 18:34 DC 11/06/17 18:41 3 ML ECG Indication: SOB/dyspnea Rate (beats per minute): 96 Rhythm: normal sinus Findings: nonspecific-ST abn, no acute ischemic change, no ectopy ED Course 1628: The patient was evaluated in room A11B. A complete history and physical exam was performed. 1630: Ordered Solu-Medrol IV 125 mg IV, Duoneb 3 ml INH. 1727: Ordered Duoneb 3 ml INH. 1813: I reevaluated the patient and she is still wheezing some. 1816: Discussed the patient's case with Dr. Stevo Macdonald . The patient will be evaluated for further treatment and disposition. 183: Ordered Duoneb 3 ml INH. Medical Decision Triage Nursing notes reviewed. The patient's presentation and history were concerning for breathing difficulties. Etiologies such as pneumonia, COPD, reactive airway disease, CHF, cardiac ischemia, pulmonary embolism, pneumothorax, musculoskeletal, infections, gastrointestinal, as well as others were entertained. The patient was evaluated. She was wheezing. She was mildly dyspneic. She was given multiple nebulizer treatments and IV steroids. She was currently taking oral Levaquin. Chest x-ray was rather unremarkable. Blood work did not reveal any significant findings. Despite multiple nebulizer treatments she was still dyspneic and had significant cough and wheezing. She notes a history of this requiring admission. She has failed outpatient management. Consultation was made with internal medicine. The patient was evaluated in the Emergency Room for further management. Medication Reconcilliation Current Medication List: was personally reviewed by me Blood Pressure Screening Patient's blood pressure: Elevated blood pressure Will be further monitored by the hospitalist. Consults Time Called: 1814 Consulting Physician: Dr. Stevo Macdonald Returned Call: [id number] Discussed the patient's case with Dr. Stevo Macdonald . The patient will be evaluated for further treatment and disposition. Impression Primary Impression: SOB (shortness of breath) Additional Impressions: Wheezing RAD (reactive airway disease) Scribe Attestation The scribe's documentation has been prepared under my direction and personally reviewed by me in its entirety. I confirm that the note above accurately reflects all work, treatment, procedures, and medical decision making performed by me. Departure Information Dispostion Being Evaluated By Hospitalist Referrals Aime Pena M.D.([facility]) (PCP) Patient Instructions My [facility] Problem Qualifiers
[2017-11-06] MEDS ORDERED: AZITHROMYCIN 250 MG TAB PO ONE (20:27)
[2017-11-06 20:55] LABS: URINE APPEARANCE CLEAR (CLEAR); URINE BILIRUBIN NEG (NEG); URINE COLOR YELLOW; URINE NITRITE NEG (NEG); URINE SPECIFIC GRAVITY 1.013 (1.000-1.030); UROBILINOGEN NEG (NEG)
[2017-11-06 20:58] LABS: MANUAL MICROSCOPIC REQUIRED? NO; REVIEW REQ? NO
[2017-11-06] MEDS: LEVALBUTEROL 0.63MG/3 ML NEB INH SCH (20:58)
[2017-11-06 21:00] VITALS: PULSE 102; O2SAT 96
[2017-11-06] MEDS ORDERED: MONTELUKAST SOD 10 MG TAB PO SCH (21:00)
[2017-11-06] MEDS ORDERED: SIMVASTATIN 40 MG TAB PO SCH (21:00)
[2017-11-06 21:03] LABS: INR 0.9 (0.9-1.1); PROTHROMBIN TIME (PATIENT) 9.8 SECONDS (9.0-12.0)
[2017-11-06] MEDS: ASPIRIN 81 MG ECTAB PO SCH (21:28)
[2017-11-06] MEDS: PANTOprazole SOD 40 MG TAB PO SCH (21:35)
[2017-11-06] MEDS: HEPARIN SOD 5000 UNIT/0.5 ML CARP SQ SCH (22:28)
[2017-11-06] MEDS ORDERED: INFLUENZA VIRUS QUAD VACCINE 0.5 ML SYR IM. ONE (23:00)
[2017-11-06] MEDS ORDERED: PNEUMOCOCCAL POLYSACCHARIDES 25 MCG/0.5 ML VIAL/SYR IM. ONE (23:00)
[2017-11-06] MEDS ORDERED: INFLUENZA ADMINISTRATION CHARGE ONE (23:00)
[2017-11-06] MEDS ORDERED: PNEUMOCOCCAL ADMINISTRATION CHARGE ONE (23:00)
[2017-11-07 00:14] VITALS: BP 158/64; PULSE 79; TEMP 36.7; O2SAT 95
[2017-11-07 01:12] LABS: CKMB/CK RATIO 2.8 (0-3.0)
[2017-11-07 02:00] VITALS: PULSE 93; O2SAT 97
[2017-11-07] MEDS: LEVALBUTEROL 0.63MG/3 ML NEB INH SCH ×3 (02:00→14:14)
[2017-11-07] MEDS ORDERED: METHYLPREDNISOLONE IV 40 MG in SYRINGE 0 ML IV SCH (04:00)
[2017-11-07] MEDS: HEPARIN SOD 5000 UNIT/0.5 ML CARP SQ SCH ×2 (06:15→13:59)
[2017-11-07] MEDS ORDERED: LEVOTHYROXINE 50 MCG TAB PO SCH (06:30)
[2017-11-07 07:10] VITALS: PULSE 69; O2SAT 96
[2017-11-07 07:17] VITALS: BP 128/65; PULSE 70; TEMP 36.6; O2SAT 96
[2017-11-07] MEDS: ASPIRIN 81 MG ECTAB PO SCH (08:05)
[2017-11-07] MEDS: PANTOprazole SOD 40 MG TAB PO SCH (08:05)
[2017-11-07] MEDS ORDERED: NURSING DECISION MEDICATION ORDER SCH (08:30)
[2017-11-07] MEDS ORDERED: LISINOPRIL 5 MG TAB PO SCH (09:00)
[2017-11-07] MEDS ORDERED: CHOLECALCIFEROL 1000 INTER.UNIT TAB PO SCH (09:00)
[2017-11-07] MEDS ORDERED: AZITHROMYCIN 250 MG TAB PO SCH (09:00)
[2017-11-07] MEDS ORDERED: METOPROLOL SUCC 25MG EXT REL TAB PO SCH (09:00)
[2017-11-07] MEDS ORDERED: MAGNESIUM OXIDE 400 MG TAB PO SCH ×2 (09:00→12:00)
[2017-11-07 09:05] LABS: HEMATOCRIT 38.1 % (37-47); MEAN CELL VOLUME 92.5 fL (80-100); MEAN CORPUSCULAR HEMOGLOBIN 31.6 pg (25-34); MEAN CORPUSCULAR HGB CONC 34.1 g/dl (32-36); MEAN PLATELET VOLUME 10.3 fL (7.4-10.4); PLATELET COUNT 196 K/uL (130-400); RED BLOOD COUNT 4.12 M/uL (4.2-5.4); WHITE BLOOD COUNT 4.11 K/uL (4.8-10.8)
[2017-11-07 09:30] LABS: CKMB/CK RATIO 3.5 (0-3.0)
[2017-11-07 09:32] LABS: BUN/CREATININE RATIO 15.2 (10-20); CALCIUM 9.8 mg/dl (8.5-10.1); CREATININE 1.11 mg/dl (0.60-1.20); MAGNESIUM 1.9 mg/dl (1.8-2.4)
[2017-11-07 09:42] LABS: THYROID STIMULATING HORMONE 0.293 uIu/ml (0.300-4.500)
[2017-11-07] MEDS ORDERED: SENNA 8.6 MG TAB PO ONE (10:00)
[2017-11-07] MEDS ORDERED: BENZONATATE 100MG CAP PO ONE (10:00)
[2017-11-07] MEDS ORDERED: BENZ100C7 PO (11:37)
--- NOTE | 2017-11-07 11:46 | Progress Note ---
Internal Med Progress Note Date of Service: Nov 07, 2017. Provider Documentation: SUBJECTIVE: Patient feeling better today compared to yesterday. Patient reports that her wheezing is gone. Cough still present OBJECTIVE: Exam: General-no acute distress, breathing on room air, ambulates on room air Eyes- EOMI ENT- no exudates Neck- no JVD, trachea midline Lungs- CTABL, no wheezing, cough on expiration Heart-regular rate Abdomen- soft, nontender, + bowel sounds Extremities- no gross swelling Neuro- no focal deficits, ambulatory ASSESSMENT & PLAN: Patient was admitted on 11/06/17 with subsequent improvements in her breathing. When seen in the AM on 11/07/17, patient does not have wheezing. Breathing on room air. Does have cough on expiration on lung exam. But no physical exam findings of crackles or wheezing. Images and labs reviewed from 11/06/17 CXR on 11/06/17: No acute cardiopulmonary disease Atherosclerosis of aortic arch. Cardiac silhouette mildly enlarged. Lungs and pleural spaces clear. Apparent nodular opacity at the left lung base correlates to calcification within a costochondral junction. Degenerative changes of the thoracic spine. Upper abdomen normal. Blood culture from 11/06/17 pending Patient reports that she has been on prednisone taper regimen and Levaquin at home by [facility] During this hospital stay patient received IV meprednisone and oral Azithromycin. Since these hospital medications are somewhat equivalent to medications that patient has at home, she can finish her outpatient regimen or prednisone and Levaquin Discharge diagnosis primarily of Acute Bronchitis and Asthma Exacerbation Patient's discharge appointment to primary care doctor 11/08/2017 9:00 AM Aime Pena MD Family [facility] Patient is instructed to return to the emergency room if severe shortness of breath or wheezing or high fevers Vital Signs: Date Time Temp Pulse Resp B/P (MAP) Pulse Ox O2 Delivery O2 Flow Rate FiO2 11/07/17 08:00 Room Air 11/07/17 07:17 36.6 70 20 128/65 (86) 96 Room Air 11/07/17 07:10 69 16 96 Room Air 11/07/17 02:00 93 16 97 Room Air 11/07/17 00:14 36.7 79 20 158/64 (95) 95 Room Air 11/07/17 00:00 Room Air 11/06/17 21:00 102 16 96 Room Air 11/06/17 20:15 36.5 112 16 160/81 96 Room Air 11/06/17 19:47 83 18 128/71 95 11/06/17 17:58 81 17 93 11/06/17 17:43 86 18 95 11/06/17 17:32 133/74 11/06/17 17:28 83 15 92 11/06/17 17:23 109 19 93 11/06/17 17:08 91 15 93 11/06/17 17:01 150/76 11/06/17 16:56 138/86 11/06/17 16:53 93 18 98 11/06/17 16:38 89 32 96 11/06/17 16:31 96 Room Air 11/06/17 16:31 95 Room Air 11/06/17 16:31 95 Room Air 11/06/17 16:23 102 21 96 11/06/17 16:20 181/96 11/06/17 16:13 36.5 132 20 158/92 95 Room Air Lab Results: Results Past 24 Hours Test 11/06/17 16:25 11/06/17 16:40 11/06/17 20:40 11/07/17 00:40 Range/Units White Blood Count 4.38 4.8-10.8 K/uL Red Blood Count 4.53 4.2-5.4 M/uL Hemoglobin 14.3 12.0-16.0 g/dL Hematocrit 41.8 37-47 % Mean Corpuscular Volume 92.3 80-100 fL Mean Corpuscular Hemoglobin 31.6 25-34 pg Mean Corpuscular Hemoglobin Concent 34.2 32-36 g/dl Platelet Count 216 130-400 K/uL Mean Platelet Volume 10.0 7.4-10.4 fL Neutrophils (%) (Auto) 70.3 % Lymphocytes (%) (Auto) 23.3 % Monocytes (%) (Auto) 6.2 % Eosinophils (%) (Auto) 0.0 % Basophils (%) (Auto) 0.0 % Neutrophils # (Auto) 3.08 1.4-6.5 K/uL Lymphocytes # (Auto) 1.02 1.2-3.4 K/uL Monocytes # (Auto) 0.27 0.11-0.59 K/uL Eosinophils # (Auto) 0.00 0-0.5 K/uL Basophils # (Auto) 0.00 0-0.2 K/uL RDW Standard Deviation 42.9 36.4-46.3 fL RDW Coefficient of Variation 12.8 11.5-14.5 % Immature Granulocyte % (Auto) 0.2 % Immature Granulocyte # (Auto) 0.01 0.00-0.02 K/uL Prothrombin Time 9.8 9.0-12.0 SECONDS Prothromb Time International Ratio 0.9 0.9-1.1 Activated Partial Thromboplast Time 27.1 21.0-31.0 SECONDS Partial Thromboplastin Ratio 1.0 Sodium Level 137 136-145 mmol/L Potassium Level 3.9 3.5-5.1 mmol/L Chloride Level 104 98-107 mmol/L Carbon Dioxide Level 20 21-32 mmol/L Anion Gap 12.0 3-11 mmol/L Blood Urea Nitrogen 16 7-18 mg/dl Creatinine 1.28 0.60-1.20 mg/dl Est Creatinine Clear Calc Drug Dose 34.1 ml/min Estimated GFR () 43.8 Estimated GFR (Non- 37.8 BUN/Creatinine Ratio 12.7 10-20 Random Glucose 167 70-99 mg/dl Calcium Level 10.2 8.5-10.1 mg/dl Total Bilirubin 0.3 0.2-1 mg/dl Aspartate Amino Transf (AST/SGOT) 29 15-37 U/L Alanine Aminotransferase (ALT/SGPT) 28 12-78 U/L Alkaline Phosphatase 70 45-117 U/L Total Creatine Kinase 82 60 26-192 U/L Creatine Kinase MB 1.8 1.7 0.5-3.6 ng/ml Creatine Kinase MB Ratio 2.2 2.8 0-3.0 Troponin I < 0.015 < 0.015 0-0.045 ng/ml Total Protein 7.5 6.4-8.2 gm/dl Albumin 4.0 3.4-5.0 gm/dl Globulin 3.5 2.5-4.0 gm/dl Albumin/Globulin Ratio 1.1 0.9-2 Influenza Type A Antigen Neg for Influ A NEG Influenza Type B Antigen Neg for Influ B NEG Urine Color YELLOW Urine Appearance CLEAR CLEAR Urine pH 5.0 4.5-7.5 Urine Specific [place] 1.013 1.000-1.030 Urine Protein NEG NEG Urine Glucose (UA) NEG NEG Urine Ketones TRACE NEG Urine Occult Blood NEG NEG Urine Nitrite NEG NEG Urine Bilirubin NEG NEG Urine Urobilinogen NEG NEG Urine Leukocyte Esterase NEG NEG Test 11/07/17 08:39 Range/Units White Blood Count 4.11 4.8-10.8 K/uL Red Blood Count 4.12 4.2-5.4 M/uL Hemoglobin 13.0 12.0-16.0 g/dL Hematocrit 38.1 37-47 % Mean Corpuscular Volume 92.5 80-100 fL Mean Corpuscular Hemoglobin 31.6 25-34 pg Mean Corpuscular Hemoglobin Concent 34.1 32-36 g/dl RDW Standard Deviation 43.7 36.4-46.3 fL RDW Coefficient of Variation 13.0 11.5-14.5 % Platelet Count 196 130-400 K/uL Mean Platelet Volume 10.3 7.4-10.4 fL Sodium Level 137 136-145 mmol/L Potassium Level 4.0 3.5-5.1 mmol/L Chloride Level 105 98-107 mmol/L Carbon Dioxide Level 22 21-32 mmol/L Anion Gap 10.0 3-11 mmol/L Blood Urea Nitrogen 17 7-18 mg/dl Creatinine 1.11 0.60-1.20 mg/dl Est Creatinine Clear Calc Drug Dose 39.7 ml/min Estimated GFR () 52.1 Estimated GFR (Non- 44.9 BUN/Creatinine Ratio 15.2 10-20 Random Glucose 183 70-99 mg/dl Calcium Level 9.8 8.5-10.1 mg/dl Magnesium Level 1.9 1.8-2.4 mg/dl Total Creatine Kinase 68 26-192 U/L Creatine Kinase MB 2.4 0.5-3.6 ng/ml Creatine Kinase MB Ratio 3.5 0-3.0 Troponin I < 0.015 0-0.045 ng/ml Procalcitonin < 0.05 0-0.5 ng/ml Thyroid Stimulating Hormone (TSH) 0.293 0.300-4.500 uIu/ml Microbiology Results 11/06/17 Blood Culture, Received Pending 11/06/17 Blood Culture, Received Pending
--- NOTE | 2017-11-07 11:56 | Discharge Instructions ---
Discharge Instructions Date of Service Nov 07, 2017. Admission Reason for Admission: Acute Bronchitis Discharge Discharge Diagnosis / Problem: asthma , bronchitis Discharge Goals Goal(s): Improve function Activity Recommendations Activity Limitations: resume your previous activity Shower/Bathe: no limitations . Instructions / Follow-Up Instructions / Follow-Up Patient was admitted on 11/06/17 with subsequent improvements in her breathing. When seen in the AM on 11/07/17, patient does not have wheezing. Breathing on room air. Does have cough on expiration on lung exam. But no physical exam findings of crackles or wheezing. Images and labs reviewed from 11/06/17 CXR on 11/06/17: No acute cardiopulmonary disease Atherosclerosis of aortic arch. Cardiac silhouette mildly enlarged. Lungs and pleural spaces clear. Apparent nodular opacity at the left lung base correlates to calcification within a costochondral junction. Degenerative changes of the thoracic spine. Upper abdomen normal. Blood culture from 11/06/17 pending Patient reports that she has been on prednisone taper regimen and Levaquin at home by [facility] During this hospital stay patient received IV meprednisone and oral Azithromycin. Since these hospital medications are somewhat equivalent to medications that patient has at home, she can finish her outpatient regimen or prednisone and Levaquin Discharge diagnosis primarily of Acute Bronchitis and Asthma Exacerbation Patient's discharge appointment to primary care doctor 11/08/2017 9:00 AM Aime Pena MD Family Practice [facility] Patient is instructed to return to the emergency room if severe shortness of breath or wheezing or high fevers Vital Signs: Current Hospital Diet Patient's current hospital diet: Regular Diet Discharge Diet Recommended Diet: Regular Diet Pending Studies Studies pending at discharge: yes List of pending studies: blood culture pending final results, drawn from 11/06/17 Laboratory Results 11/07/17 08:39 11/07/17 08:39 Test 11/06/17 16:25 11/06/17 16:40 11/06/17 20:40 11/07/17 08:39 Immature Granulocyte % (Auto) 0.2 % White Blood Count 4.38 K/uL (4.8-10.8) Red Blood Count 4.53 M/uL (4.2-5.4) 4.12 M/uL (4.2-5.4) Hemoglobin 14.3 g/dL (12.0-16.0) Hematocrit 41.8 % (37-47) Mean Corpuscular Volume 92.3 fL (80-100) 92.5 fL (80-100) Mean Corpuscular Hemoglobin 31.6 pg (25-34) 31.6 pg (25-34) Mean Corpuscular Hemoglobin Concent 34.2 g/dl (32-36) 34.1 g/dl (32-36) Platelet Count 216 K/uL (130-400) Mean Platelet Volume 10.0 fL (7.4-10.4) 10.3 fL (7.4-10.4) Neutrophils (%) (Auto) 70.3 % Lymphocytes (%) (Auto) 23.3 % Monocytes (%) (Auto) 6.2 % Eosinophils (%) (Auto) 0.0 % Basophils (%) (Auto) 0.0 % Neutrophils # (Auto) 3.08 K/uL (1.4-6.5) Lymphocytes # (Auto) 1.02 K/uL (1.2-3.4) Monocytes # (Auto) 0.27 K/uL (0.11-0.59) Eosinophils # (Auto) 0.00 K/uL (0-0.5) Basophils # (Auto) 0.00 K/uL (0-0.2) Immature Granulocyte # (Auto) 0.01 K/uL (0.00-0.02) Prothrombin Time 9.8 SECONDS (9.0-12.0) Prothromb Time International Ratio 0.9 (0.9-1.1) Activated Partial Thromboplast Time 27.1 SECONDS (21.0-31.0) Partial Thromboplastin Ratio 1.0 Total Bilirubin 0.3 mg/dl (0.2-1) Aspartate Amino Transf (AST/SGOT) 29 U/L (15-37) Alanine Aminotransferase (ALT/SGPT) 28 U/L (12-78) Alkaline Phosphatase 70 U/L (45-117) Total Protein 7.5 gm/dl (6.4-8.2) Albumin 4.0 gm/dl (3.4-5.0) Globulin 3.5 gm/dl (2.5-4.0) Albumin/Globulin Ratio 1.1 (0.9-2) Influenza Type A Antigen Neg for Influ A (NEG) Influenza Type B Antigen Neg for Influ B (NEG) Urine Color YELLOW Urine Appearance CLEAR (CLEAR) Urine pH 5.0 (4.5-7.5) Urine Specific [place] 1.013 (1.000-1.030) Urine Protein NEG (NEG) Urine Glucose (UA) NEG (NEG) Urine Ketones TRACE (NEG) Urine Occult Blood NEG (NEG) Urine Nitrite NEG (NEG) Urine Bilirubin NEG (NEG) Urine Urobilinogen NEG (NEG) Urine Leukocyte Esterase NEG (NEG) RDW Standard Deviation 43.7 fL (36.4-46.3) RDW Coefficient of Variation 13.0 % (11.5-14.5) Anion Gap 10.0 mmol/L (3-11) Est Creatinine Clear Calc Drug Dose 39.7 ml/min Estimated GFR () 52.1 Estimated GFR (Non- 44.9 BUN/Creatinine Ratio 15.2 (10-20) Calcium Level 9.8 mg/dl (8.5-10.1) Magnesium Level 1.9 mg/dl (1.8-2.4) Total Creatine Kinase 68 U/L (26-192) Creatine Kinase MB 2.4 ng/ml (0.5-3.6) Creatine Kinase MB Ratio 3.5 (0-3.0) Troponin I < 0.015 ng/ml (0-0.045) Procalcitonin < 0.05 ng/ml (0-0.5) Thyroid Stimulating Hormone (TSH) 0.293 uIu/ml (0.300-4.500) Date/Time Source Procedure Growth Status 11/06/17 17:51 Blood Blood Culture Pending Received Medical Emergencies . Who to Call and When: Medical Emergencies: If at any time you feel your situation is an emergency, please call 911 immediately. . Non-Emergent Contact Non-Emergency issues call your: Primary Care Provider Call Non-Emergent contact if: you have a fever, you have any medication questions . . "Provider Documentation" section prepared by David Kaiser. . VTE Core Measure Inpt VTE Proph given/why not?: Unfractionated heparin SQ
--- NOTE | 2017-11-07 11:57 | Discharge Summary ---
Discharge Summary Date of Service Nov 07, 2017. Discharge Summary Admission Date: Nov 06, 2017 at 18:58 Discharge Date: Nov 07, 2017 Discharge Disposition: Home Principal Diagnosis: acute bronchitis / asthma exacerbation Medication Reconciliation New Medications: Benzonatate (Benzonatate) 100 Mg Cap 100 MG PO TID for 10 Days, #30 CAP Continued Medications: Albuterol (Ventolin Hfa) 60 Puffs/5400 Mcg Aers 2 PUFF INH Q6H PRN for Wheezing, #1 Aspirin (Aspirin Ec) 81 Mg Tab 81 MG PO BID Cholecalciferol (Vitamin D3) 2,000 Unit Tab 2000 INTER.UNIT PO DAILY, TAB 3 Refills Furosemide (Lasix) 20 Mg Tab 20 MG PO 2-3XWK PRN for PRN Levothyroxine Sodium (Synthroid) 50 Mcg Tab 50 MCG PO QAM Lisinopril (Lisinopril) 5 Mg Tab 5 MG PO DAILY Magnesium Oxide (Mag-Ox) 400 Mg Tab 400 MG PO QAM Metoprolol Succinate (Toprol Xl) 25 Mg Tabcr 25 MG PO DAILY Montelukast Sod (Montelukast Sodium) 10 Mg Tab 10 MG PO HS Omeprazole (Prilosec) 20 Mg Cap 20 MG PO BID Simvastatin (Simvastatin) 40 Mg Tab 40 MG PO HS Admission Information HPI (per Admitting provider): This is an 87 year old female with a PMH of asthmatic bronchitis, HTN, HLD, hypothyroidism, ventricular ectopy, CKD stage 3, GERD, presents with a three day history of wheezing, shortness of breath, weakness. States that on MondayNovember 01 - she developed some sore throat symptoms. She thought nothing much of it, but then on Monday, she suddenly developed weakness, shortness of breath and audible wheezing. She was seen by Dr. Shi on November 04 and was given prednisone and Levaquin. She states that the symptoms did not improve. She presented to the ER with worsening shortness of breath and wheezing. Upon presentation, she received three nebulizer treatments and IV steroids with some improvement, but she continued to wheeze and feel weak. Denies chest pain, currently denies palpitations, though she has had these in the past. She felt feverish at home, but no documented fevers were noted. Physical Exam (per Admitting): General Appearance: WD/WN, + mild distress (mild respiratory distress) Head: normocephalic, atraumatic Eyes: normal inspection ENT: hearing grossly normal Neck: supple Respiratory/Chest: chest non-tender, no respiratory distress, no accessory muscle use, + wheezing (diffuse end expiratory wheezing) Cardiovascular: regular rate, rhythm, no edema, no gallop, no JVD, no murmur , normal peripheral pulses Abdomen/GI: normal bowel sounds, non tender, soft Extremities/Musculoskelatal: no calf tenderness, no pedal edema, normal range of motion, + swelling (LLE swelling, chronic) Neurologic/Psych: melter caster II-XII nml as tested, no motor/sensory deficits, alert , normal mood/affect, oriented x 3 Skin: normal color, warm/dry, no rash Lymphatic: no adenopathy Hospital Course Patient was admitted on 11/06/17 with subsequent improvements in her breathing. When seen in the AM on 11/07/17, patient does not have wheezing. Breathing on room air. Does have cough on expiration on lung exam. But no physical exam findings of crackles or wheezing. Images and labs reviewed from 11/06/17 CXR on 11/06/17: No acute cardiopulmonary disease Atherosclerosis of aortic arch. Cardiac silhouette mildly enlarged. Lungs and pleural spaces clear. Apparent nodular opacity at the left lung base correlates to calcification within a costochondral junction. Degenerative changes of the thoracic spine. Upper abdomen normal. Blood culture from 11/06/17 pending Patient reports that she has been on prednisone taper regimen and Levaquin at home by [facility] During this hospital stay patient received IV meprednisone and oral Azithromycin. Since these hospital medications are somewhat equivalent to medications that patient has at home, she can finish her outpatient regimen or prednisone and Levaquin Discharge diagnosis primarily of Acute Bronchitis and Asthma Exacerbation Patient's discharge appointment to primary care doctor 11/08/2017 9:00 AM Aime Pena MD Family [facility] Patient is instructed to return to the emergency room if severe shortness of breath or wheezing or high fevers Total time spent on discharge = 60 minutes This includes examination of the patient, discharge planning, medication reconciliation, and communication with other providers. Discharge Instructions see above
[2017-11-07 12:30] VITALS: BP 128/65; PULSE 70; TEMP 36.6; O2SAT 96
[2017-11-07] MEDS ORDERED: BENZONATATE 100MG CAP PO SCH (14:00)
[2017-11-07 14:14] VITALS: PULSE 86; O2SAT 96
[2017-11-08] MEDS ORDERED: SENNA 8.6 MG TAB PO SCH (09:00)
== END 2017-11-07 14:46 | disposition home or self-care (01) | DRG 202 ==
LOC: C.EDB 16:10 → ENRESERV 18:55 → CANRESERV 18:55 → C.MED 18:58 → EDBEDREQTM 19:20 → EDBEDREQSVC 19:20 → CANRESERV 19:23 → ENRESERV 19:23
PROVIDERS: ADMIT Family Medicine; ATTEND Hospitalist
DX: J20.8 Acute bronchitis due to other specified organisms (principal); J45.901 Unspecified asthma with (acute) exacerbation; I12.9 Hypertensive chronic kidney disease with stage 1 through stage 4 chronic kidney disease, or unspecified chronic kidney disease; E78.5 Hyperlipidemia, unspecified; I49.3 Ventricular premature depolarization; N18.3 Chronic kidney disease, stage 3 (moderate); E03.9 Hypothyroidism, unspecified; K21.9 Gastro-esophageal reflux disease without esophagitis; Z86.73 Personal history of transient ischemic attack (TIA), and cerebral infarction without residual deficits; Z79.82 Long term (current) use of aspirin; Z82.49 Family history of ischemic heart disease and other diseases of the circulatory system

== ENCOUNTER 2019-01-31 08:11 | Observation (INO) ==
--- NOTE | 2019-01-15 16:18 | PAT Medication Instructions ---
Medication Instructions Date of Service January 15, 2019 Home Medications magnesium oxide 400 mg PO QAM aspirin 81 mg PO BID omeprazole 20 mg PO BID furosemide 20 mg PO DAILY PRN levothyroxine 50 mcg PO QAM cholecalciferol (vitamin D3) 2,000 unit PO QAM montelukast 10 mg PO PM levalbuterol tartrate 2 inh INHALATION Q6H PRN losartan 25 mg PO HS prednisone 10 mg PO DAILY PRN verapamil 120 mg PO QAM acetaminophen [Tylenol Extra 500 mg PO Q4H PRN polyethylene glycol 3350 [Miralax] 17 g PO DAILY PA rosuvastatin 20 mg PO HS Continue as directed prednisone 10 mg PO DAILY PRN RESCUE KIT ASK your prescriber and surgeon aspirin 81 mg PO BID DO NOT take the morning of surgery magnesium oxide 400 mg PO QAM furosemide 20 mg PO DAILY PRN cholecalciferol (vitamin D3) 2,000 unit PO QAM verapamil 120 mg PO QAM polyethylene glycol 3350 [Miralax] 17 g PO DAILY PA Take morning of surgery With a small sip of water, OTHERWISE NOTHING TO EAT OR DRINK AFTER MIDNIGHT: omeprazole 20 mg PO BID levothyroxine 50 mcg PO QAM levalbuterol tartrate 2 inh INHALATION Q6H PRN (if needed) acetaminophen [Tylenol Extra 500 mg PO Q4H PRN (okay to take up to 4 hours prior to surgery if needed) Take evening before surgery omeprazole 20 mg PO BID furosemide 20 mg PO DAILY PRN (if needed) montelukast 10 mg PO PM levalbuterol tartrate 2 inh INHALATION Q6H PRN (if needed) losartan 25 mg PO HS acetaminophen [Tylenol Extra 500 mg PO Q4H PRN (if needed) polyethylene glycol 3350 [Miralax] 17 g PO DAILY PA (if needed) rosuvastatin 20 mg PO HS Other Notes If you have any questions please call us at [phone] or [phone] or [phone] or [phone]
--- NOTE | 2019-01-16 10:47 | Anesthesiology Consultation ---
Date of Service January 16, 2019 Assessment & Plan (1) Encounter for pre-operative examination: - Cardio= 11/23/18= cough questionably related to beta lavonne or JUSTA inhibitor. Discussion with cardio; attempting to transition patient off of metoprolol and to CCB; also lisinopril switched to losartan (patient now taking verapamil/losartan and beta lavonne discontinued). Cough has improved but still occurs intermittently as of PAT visit 01/16. Furosemide frequency increased due to weight fluctuation and fluid. Patient states she has not needed to take the diuretic daily and LE edema has improved (trace non-pitting edema on 01/16 PAT evaluation). Repeat BMP done 01/16/19 WNL. - Nephrology= 11/26/18= stable CKD stage III (creatinine baseline at 1.0-1.2), f/u 6 months recommended - ASA instructions per surgeon/prescriber Chart Review Chart Review: Acceptable Risk for Surgery and Patient seen in Pre Admission Testing Teaching & Discussion Pre-Anesthesia Teaching/Discussion Notes: Instructed NPO after midnight before surgery,except medications with 15 cc of water. Medication instructions provided according to the PAT guidelines. History Surgery Operation Date: 01/31/19 11:30 Proposed Procedures p L2-L3 Laminectomy - Ranjeet Hendricks DO Height/Weight Height: 5 ft 3.5 in Weight: 90.5 kg Allergies Allergy/AdvReac Type Severity Reaction Status Date / Time No Known Allergies Allergy Verified 01/15/19 08:15 Medications Home Medications Medication Instructions Recorded Confirmed Last Taken magnesium oxide 400 mg PO QAM #0 06/09/11 01/15/19 01/07/19 08:00 aspirin 81 mg PO BID #0 04/14/15 01/15/19 01/01/19 22:00 omeprazole 20 mg PO BID #0 04/14/15 01/15/19 01/08/19 05:15 furosemide 20 mg PO DAILY PRN #0 07/29/16 01/15/19 Unknown levothyroxine 50 mcg PO QAM #0 08/19/16 01/15/19 01/07/19 07:30 cholecalciferol (vitamin D3) 2,000 unit PO QAM #0 tab 05/30/17 01/15/19 01/07/19 08:00 montelukast 10 mg PO PM #0 05/30/17 01/15/19 01/07/19 22:00 levalbuterol tartrate 2 inh INHALATION Q6H PRN 01/08/19 01/15/19 Unknown losartan 25 mg PO HS 01/08/19 01/15/19 01/08/19 05:15 prednisone 10 mg PO DAILY PRN 01/08/19 01/15/19 Unknown verapamil 120 mg PO QAM 01/08/19 01/15/19 01/08/19 05:15 acetaminophen [Tylenol Extra 500 mg PO Q4H PRN 01/15/19 01/15/19 Unknown Strength] polyethylene glycol 3350 [Miralax] 17 g PO DAILY PRN 01/15/19 01/15/19 Unknown rosuvastatin 20 mg PO HS 01/15/19 01/15/19 Unknown Past Medical History Medical History Bronchitis MOST RECENT FALL 2017; HAS RESCUE KIT TO USE PRN CKD (chronic kidney disease), stage III CVA (cerebral vascular accident) ? CVA VS. TIA 2+ YEARS AGO= ON ASA Cancer SKIN Chronic back pain GERD (gastroesophageal reflux disease) CONTROLLED Heart palpitations History of blood transfusion 2013 POST OP BACK SURGERY Hyperlipidemia Hyperparathyroidism Hypertension Hypothyroidism Obesity Osteoporosis Past Family History Family History Mother FHx: bladder cancer Father Family history of esophageal cancer Past Surgical History Surgical History History of cardiac cath 2007= NO STENTS; "NORMAL CORONARIES" History of carpal tunnel release BILATERAL History of cataract surgery BILATERAL History of esophagogastroduodenoscopy (EGD) History of lumbar surgery DISCECTOMY/FUSION History of open reduction and internal fixation (ORIF) procedure LEFT ANKLE Hx of appendectomy Hx of cervical spine surgery DISCECTOMY Hx of colonoscopy S/P hardware removal LEFT ANKLE Past Anesthesia History No Hx of Anesthesia Complications and No Family Hx of Anesthesia Complications History of PONV No Motion Sickness Screening History of Motion Sickness: Yes Social History Smoking Status: Never smoker Do You Dip or Chew Tobacco: No Hx Alcohol Use: Yes Alcohol type: wine alcohol intake frequency: a few times a month Hx Substance Use: No substance use type: does not use Exercise / Class Metabolic Activity III < 4 Walking/Shop/Light housework Review of Systems Chronic intermittent cough. Rare intermittent palpitations. Reflux controlled. Patient denies chest pain, shortness of breath, wheezing. Physical Exam Vital Signs VITALS BP 123/77 P 76 TEMP 98.1 SP02 96%RA RESP 18 PHYSICAL Full neck and c-spine range of motion. Full TMJ range of motion. TMD 3 finger breaths Mallampati Score 2 Dentition: multiple missing molars/sides Lungs: clear throughout to auscultation Cardiac: regular rate and rhythm, no murmurs noted Spine: normal Carotid arteries: negative bruit Extremities: trace non-pitting edema Testing Electrocardiogram Date: 01/16/19 NSR at 71bpm. Low voltage QRS. Chest X-Ray Date: 08/03/18 Findings: + NAD Echocardiogram Date: 08/20/16 LVEF 60-65%. No RWMA. Mild cLVH. Grade I DD. Mild WI. Stress Test Date: 03/25/14 Type: exercise Stress ECHO/EKG negative for inducible ischemia. LVEF 55-59%. Impaired LV myocardial relaxation. No significant valvular disease. 82% MPHR. 4.6METS. Laboratory Results 01/16/19 11:19 01/16/19 11:19 PT 10.2 Seconds (9.0-12.0) 01/16/19 11:19 INR 1.0 (0.9-1.1) 01/16/19 11:19 APTT 26.5 Seconds (21.0-31.0) 01/16/19 11:19 12/17/18 SODIUM 144 POTASSIUM 4.4 CHLORIDE 106 CO2 24 BUN 13 CREATININE 1.0 GLUCOSE 91
[2019-01-16 13:07] LABS: Basophils # (auto) 0.03 K/uL (0-0.2); Basophils % (auto) 0.4 %; Eosinophils # (auto) 0.08 K/uL (0-0.5); Eosinophils % (auto) 1.2 %; Hematocrit (blood only) 41.4 % (37-47); Hemoglobin 13.7 g/dL (12.0-16.0); Immature Granulocytes # (auto) 0.02 K/uL (0.00-0.02); Immature Granulocytes % (auto) 0.3 %; Lymphocytes # (auto) 2.01 K/uL (1.2-3.4); Mean Corpuscular Hgb Conc 33.1 g/dL (32-36); Mean Corpuscular Volume 94.7 fL (80-100); Monocytes # (auto) 0.61 K/uL (0.11-0.59); Monocytes % (auto) 9.1 %; Neutrophils # (auto) 3.95 K/uL (1.4-6.5); Platelet Count 195 K/uL (130-400); Red Blood Count 4.37 M/uL (4.2-5.4)
[2019-01-16 13:19] LABS: BUN Creatinine Ratio 14.1 (10-20); Calcium 9.5 mg/dl (8.5-10.1); Creatinine Clr Calc Pharmacy 41.9 ml/min; Est GFR (African American) 57.3; Est GFR (Non-African American) 49.4; Potassium 4.2 mmol/L (3.5-5.1)
[2019-01-16 13:22] LABS: Partial Thromboplastin Time 26.5 Seconds (21.0-31.0); Prothrombin Time 10.2 Seconds (9.0-12.0)
--- NOTE | 2019-01-30 21:38 | History and Physical Report ---
DATE OF ADMISSION: 01/31/2019 CHIEF COMPLAINT: Lower extremity, difficulty, paresthesias, numbness and tingling, gait abnormality, bladder retention. 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 PAST MEDICAL HISTORY: Positive for hypertension, high cholesterol, usual childhood diseases. PAST SURGICAL HISTORY: Appendectomy, low back surgery, neck surgery. ALLERGIES: Negative. FAMILY HISTORY: Lymphoma. SOCIAL HISTORY: She is , 2 children. No alcohol, no tobacco. Moderately active. REVIEW OF SYSTEMS: Twelve system review, negative for fevers, sweats, chills. Ear, nose and throat negative. No chest pain, palpitations. No asthma, wheezing. No nausea, vomiting, urgency or frequency. She has neurologic issues of numbness, tingling in lower extremity and muscle pain. MEDICATIONS: Levothyroxine, lisinopril, atenolol, aspirin, magnesium, simvastatin, Lasix. OBJECTIVE: GENERAL: She is 5 feet 3 inches, 97. She is in moderate distress, minimal discomfort sitting. VITAL SIGNS: Blood pressure 130/80, pulse 80, respiration 16, temperature 97.4. HEENT: Pupils react to light and accommodation. Ear, nose and throat clear. CARDIAC: Normal S1, S2, no S3. LUNGS: Clear to auscultation. ABDOMEN: Soft, nontender. MUSCULOSKELETAL: She has decreased motor strength in lower extremity and plantarflexion, dorsiflexion, decreased hip abductor strength. Slight loss of sensation, decreased range of motion. No upper motor neuron issues. IMPRESSION: Severe spinal stenosis of lumbar spine. PLAN: Includes procedure tomorrow of laminectomy L2-3 lumbar spine.
[~2019-01-31 08:11] MED LIST changes: +ACETAMINOPHEN 1000 MG/100 ML IV IV ONE; +ALBUTEROL 0.083% NEBU SOLN 3 ML VIAL INH PRN; -ASPI81TA28 PO; -ATEN-173 PO; +ATROPINE SULFATE 0.1 MG/ML 10ML SYR IV PRN; +CEFAZOLIN 2000MG 2,000 MG/15 ML SYR IV SCH; -CHOL20007 PO; -FURO20TA PO; +HYDROmorphone INJ 1 MG/ML SYRINGE IV PRN; -LCTX PO; -LISI-461 PO; +LR 15ML/HR IV SCH; -MAGN400T6 PO; -OMEP20CA9 PO; +ONDANSETRON INJ 2 MG/ML 2 ML VIAL IV PRN; -OXYC1TAB3 PO; -PRVHFAIN INH; -SNG10 PO; +SODIUM CHLORIDE 0.9% 1,000 ML IV SCH; -SYN50 PO; -XPNINS1255 INH; -ZCR40 PO; +ePHEDrine sulfate 50 MG/ML AMP IV PRN; +fentaNYL citrate 100 MCG/2 ML VIAL IV PRN
[2019-01-31] MEDS ORDERED: PROPOFOL IV EMULSION 10 MG/ML 20 ML VIAL IV ONE (08:26)
[2019-01-31] MEDS ORDERED: fentaNYL citrate 100 MCG/2 ML VIAL ONE ×2 (08:26→12:27)
[2019-01-31] MEDS ORDERED: DEXAMETHASONE SOD INJ 4 MG/ML VIAL ONE (08:26)
[2019-01-31] MEDS ORDERED: LIDOCAINE HCL 2% 2 ML VIAL/AMP(20MG/ML) INFIL ONE (08:26)
[2019-01-31] MEDS ORDERED: ONDANSETRON INJ 2 MG/ML 2 ML VIAL ONE (08:26)
[2019-01-31] MEDS ORDERED: GELATIN SPONGE SZ 100 ONE (09:44)
[2019-01-31] MEDS ORDERED: BUPIVACAINE/EPINEPHRINE 0.5% MPF 1:200,000 30 ML VIAL ONE (09:44)
[2019-01-31] MEDS ORDERED: BACITRACIN INJ 50,000 UNIT VIAL ONE (09:44)
[2019-01-31] MEDS ORDERED: THROMBIN FOR SOLN 20000 UNIT KIT ONE (09:44)
[2019-01-31] MEDS ORDERED: VANCOMYCIN HCL 1000MG/20ML VIAL ONE (09:44)
--- NOTE | 2019-01-31 10:05 | History & Physical Bridge Note ---
Date of Service January 31, 2019 History & Physical Bridge Note I have examined the patient, reviewed the History & Physical and in the interval since the performance of the History & Physical I have noted the following changes of clinical significance: no changes noted
[2019-01-31] MEDS ORDERED: HYDROmorphone INJ 2 MG/ML SYR/VIAL ONE (10:46)
[2019-01-31] MEDS ORDERED: ROCURONIUM BROMIDE 10 MG/ML 5 ML VIAL ONE (11:15)
--- NOTE | 2019-01-31 11:28 | Fluoroscopy Report ---
FL spine 1V any level HISTORY: 88 years-old Female L2-3 LAMINECTOMY postoperative changes of the lumbar spine COMPARISON: CT lumbar spine 01/08/2018 TECHNIQUE: 1 lateral spot fluoroscopic image of the lumbar spine was obtained utilizing 1.9 seconds f luoroscopy time FINDINGS: Posterior boby and screw fusion hardware at L3-S1. Discectomy changes at L4-L5. Grade 1 retrolisthesis L2 on L3 is unchanged. Multilevel spondylitic spurring. Metallic device is noted posterior to the L2 -L3 disc space. IMPRESSION: Fluoroscopic assistance as above. Please see operative report for further details. The above report was generated using voice recognition software. It may contain grammatical, syntax o r spelling errors. Electronically signed by: Harsh Wagoner M.D. 01/31/2019 11:26 AM
[2019-01-31] MEDS ORDERED: GLYCOPYRROLATE 0.2 MG/ML VIAL ONE (11:37)
[2019-01-31] MEDS ORDERED: NEOSTIGMINE METHYLSULFATE 5 MG/5 ML SYR ONE (11:37)
[2019-01-31] MEDS ORDERED: ePHEDrine sulfate 50 MG/ML AMP ONE (11:37)
[2019-01-31] MEDS ORDERED: PHENYLEPHRINE HCL 10 MG/ML VIAL ONE (11:39)
--- NOTE | 2019-01-31 12:00 | Post Operative Brief Note ---
Immediate Post Op Note v1 Date of Surgery January 31, 2019 Pre & Post Diagnosis Operation Date: 01/31/19 10:00 Pre-Op Diagnosis: Spinal Stenosis L2-L3 Post-Op Diagnosis: Spinal Stenosis L2-L3 Procedure Operation Date: 01/31/19 10:00 Actual Procedures l2-3, l3-4 LAMINECTOMY Applicable) - Ranjeet Hendricks DO Surgeon Ranjeet Hendricks DO Body Repairer [place] Estimated Blood Loss 250 Findings Consistent with Post-Op Diagnosis Drains [place] Catheter and Hemovac Drain (10F single )
[2019-01-31] MEDS ORDERED: HYDROmorphone INJ 0.5 MG/0.5 ML SYR ONE (12:36)
--- NOTE | 2019-01-31 13:29 | Anesthesiology Progress Note ---
Date of Service January 31, 2019 Anesthesia Post Procedure Vital Signs Vital Signs: Temp Pulse Pulse Resp BP Pulse Ox 01/31/19 13:20 56 L 14 141/66 H 97 01/31/19 13:10 53 L 14 118/55 L 98 01/31/19 13:00 36.1 C L 59 L 19 111/50 L 96 01/31/19 12:50 52 L 18 123/56 L 96 01/31/19 12:40 56 L 13 128/58 L 98 01/31/19 12:30 64 19 132/58 L 97 01/31/19 12:20 68 16 128/79 99 01/31/19 12:10 78 13 146/63 H 99 01/31/19 12:03 36.6 C 86 14 164/77 H 97 01/31/19 08:42 37 C 83 20 145/78 H 99 Pain Intensity Back: Pain Intensity: 3 Notes Mental Status: alert / awake / arousable and participated in evaluation Patient Amnestic to Procedure: Yes Nausea / Vomiting: adequately controlled Pain: adequately controlled Airway Patency, RR, SpO2: stable & adequate BP & HR: stable & adequate Hydration State: stable & adequate Anesthetic Complications: no major complications apparent and Pt Satisfied with anesthetic care
--- NOTE | 2019-01-31 13:45 | Operative Report ---
DATE OF OPERATION: 01/31/2019 PREOPERATIVE DIAGNOSIS: Severe spinal stenosis, lamina of L2-L3, lamina of L3-L4. POSTOPERATIVE DIAGNOSIS: Severe spinal stenosis, lamina of L2-L3, lamina of L3-L4. PROCEDURE: Two-level laminectomy, L2-L3, L3-L4 lumbar spine. SURGEON: Ranjeet Hendricks DO BURGL[employer] ALARM MECHANIC: Navarro Ybarra PA-C. BLOOD LOSS: 250. COMPLICATIONS: Zero. Comorbidities included obesity, prior surgery, chronic kidney disease and hypertension. DESCRIPTION OF PROCEDURE: The patient was taken to the operating room and general intubated anesthetic provided to the patient, placed prone, scrubbed, prepped, draped sterile. We made a skin incision, fascial incision. We came right down the lamina. She was very tight at between the segments of L2-L3 and L3-L4 lumbar spine. We used a marker to tawanda the interspace. We did a decompression of the lamina of L3-L4, L2-L3, lumbar spine, foraminotomies, partial facetectomy, tremendous amount of ligamentum flavum hypertrophy. There was no apparent nerve root injury or injury to the dural structures. We irrigated thoroughly, closed over layers over vancomycin powder and Hemovac drain with 1 Vicryl, 2-0 and 3-0 nylon on the skin. Sterile dressings applied. The patient returned to PACU stable. Sponge and needle count correct at the close and there were no complications. I attest to the content of the Intraoperative Record and any orders documented therein. Any exception s are noted below.
[2019-01-31] MEDS ORDERED: LEVALBUTEROL TARTRATE 15 GM HFA.AER.AD INH PRN (13:47)
[2019-01-31] MEDS ORDERED: FUROSEMIDE 20 MG TAB PO PRN (13:47)
[2019-01-31] MEDS ORDERED: ACETAMINOPHEN 1,000 MG/100 ML VIAL IV STA (13:47)
[2019-01-31] MEDS ORDERED: HYDROmorphone INJ 0.5 MG/0.5 ML SYR IV PRN (13:47)
[2019-01-31] MEDS ORDERED: ONDANSETRON INJ 2 MG/ML 2 ML VIAL IV PRN (13:47)
[2019-01-31] MEDS ORDERED: HYDROmorphone INJ 1 MG/ML SYRINGE IV PRN (13:47)
[2019-01-31] MEDS ORDERED: MAGNESIUM HYDROXIDE SUSP 30 ML UDC PO PRN (13:47)
[2019-01-31] MEDS ORDERED: predniSONE 10 MG TABLET PO PRN (13:47)
[2019-01-31] MEDS ORDERED: POLYETHYLENE (MIRALAX) 17 GM PACK PO PRN (13:47)
[2019-01-31] MEDS: SODIUM CHLORIDE 0.9% 1000ML 1,000 ML IV SCH (14:51)
[2019-01-31] MEDS: dexAMETHasone 6 MG in SYRINGE 0 ML IV SCH (18:58)
[2019-01-31] MEDS: CEFAZOLIN 2000MG 2,000 MG/15 ML SYR IV SCH (18:58)
[2019-01-31] MEDS ORDERED: NURSING DECISION MEDICATION ONE (21:34)
[2019-01-31] MEDS: DOCUSATE SODIUM 100 MG CAP PO SCH (21:37)
[2019-01-31] MEDS: LOSARTAN POTASSIUM 25 MG TAB PO SCH (21:37)
[2019-01-31] MEDS: ASPIRIN 81 MG ECTAB PO SCH (21:38)
[2019-01-31] MEDS: ROSUVASTATIN CALCIUM 20 MG TAB PO SCH (21:38)
[2019-01-31] MEDS: PANTOprazole 40 MG TAB PO SCH (21:38)
[2019-01-31] MEDS: MONTELUKAST SODIUM 10 MG TABLET PO SCH (21:38)
[2019-01-31] MEDS ORDERED: COUGH DROP (SUGAR FREE) LOZ 24 LOZ/1 BOX BUCCAL PRN (21:39)
[2019-02-01] MEDS: CEFAZOLIN 2000MG 2,000 MG/15 ML SYR IV SCH ×2 (01:06→09:24)
[2019-02-01] MEDS: OXYCODONE HCL IR 5 MG TAB (IMMEDIATE RELEASE) PO PRN ×3 (01:06→23:50)
[2019-02-01] MEDS: dexAMETHasone 6 MG in SYRINGE 0 ML IV SCH ×2 (01:07→09:24)
[2019-02-01] MEDS: SODIUM CHLORIDE 0.9% 1000ML 1,000 ML IV SCH (01:25)
[2019-02-01] MEDS: LEVOTHYROXINE SODIUM 50 MCG TABLET PO SCH (05:46)
--- NOTE | 2019-02-01 08:01 | Progress Note ---
DATE: 02/01/2019 SUBJECTIVE: Chioma is doing well today. Her quadriceps on the right hand is weak. OBJECTIVE: She is afebrile. Vital signs are stable. Alert, oriented, no chest pain. ASSESSMENT: Status post very rigorous spinal decompression of L2, L3, L4 lumbar spine. She has bruising of the associated nerve roots. PLAN: We will get her up and try to ambulate today. She will need rehabilitation. I recommend a rehab facility for about 2 weeks. I will follow her every day. I think she will be set for rehab placement by tomorrow which will be Monday.
--- NOTE | 2019-02-01 08:03 | Anesthesiology Progress Note ---
Date of Service February 01, 2019 Anesthesia Post Procedure Vital Signs Vital Signs: Temp Pulse Pulse Pulse Resp BP BP 02/01/19 07:22 36.5 C 67 16 150/65 H 02/01/19 03:12 36.9 C 69 14 106/64 01/31/19 23:06 36.5 C 71 14 132/68 01/31/19 19:09 36.4 C L 58 L 17 117/70 01/31/19 17:00 35.7 C L 01/31/19 16:33 60 17 106/63 01/31/19 15:26 47 L 17 103/57 L 01/31/19 14:30 46 L 18 114/68 01/31/19 14:00 45 L 18 111/60 01/31/19 13:30 36.4 C L 52 L 14 122/71 01/31/19 13:20 56 L 14 141/66 H 01/31/19 13:10 53 L 14 118/55 L 01/31/19 13:00 36.1 C L 59 L 19 111/50 L 01/31/19 12:50 52 L 18 123/56 L 01/31/19 12:40 56 L 13 128/58 L 01/31/19 12:30 64 19 132/58 L 01/31/19 12:20 68 16 128/79 01/31/19 12:10 78 13 146/63 H 01/31/19 12:03 36.6 C 86 14 164/77 H 01/31/19 08:42 37 C 83 20 145/78 H Pulse Ox 02/01/19 07:22 97 02/01/19 03:12 97 01/31/19 23:06 99 01/31/19 19:09 100 01/31/19 17:00 01/31/19 16:33 97 01/31/19 15:26 94 01/31/19 14:30 97 01/31/19 14:00 93 01/31/19 13:30 96 01/31/19 13:20 97 01/31/19 13:10 98 01/31/19 13:00 96 01/31/19 12:50 96 01/31/19 12:40 98 01/31/19 12:30 97 01/31/19 12:20 99 01/31/19 12:10 99 01/31/19 12:03 97 01/31/19 08:42 99 Pain Intensity Back: Pain Intensity: 3 Notes Mental Status: alert / awake / arousable and participated in evaluation Patient Amnestic to Procedure: Yes Nausea / Vomiting: adequately controlled Pain: adequately controlled Airway Patency, RR, SpO2: stable & adequate BP & HR: stable & adequate Hydration State: stable & adequate Anesthetic Complications: no major complications apparent and Pt Satisfied with anesthetic care
[2019-02-01] MEDS: CHOLECALCIFEROL 1,000 UNITS TAB PO SCH (09:14)
[2019-02-01] MEDS: ASPIRIN 81 MG ECTAB PO SCH ×2 (09:15→20:49)
[2019-02-01] MEDS: DOCUSATE SODIUM 100 MG CAP PO SCH ×2 (09:15→20:47)
[2019-02-01] MEDS: MAGNESIUM OXIDE 400 MG TAB PO SCH (09:15)
[2019-02-01] MEDS: PANTOprazole 40 MG TAB PO SCH ×2 (09:15→20:49)
[2019-02-01] MEDS: VERAPAMIL HCL 120 MG TABCR PO SCH (09:15)
[2019-02-01] MEDS: LOSARTAN POTASSIUM 25 MG TAB PO SCH (20:48)
[2019-02-01] MEDS: ROSUVASTATIN CALCIUM 20 MG TAB PO SCH (20:48)
[2019-02-01] MEDS: MONTELUKAST SODIUM 10 MG TABLET PO SCH (20:49)
[2019-02-02] MEDS: LEVOTHYROXINE SODIUM 50 MCG TABLET PO SCH (05:21)
[2019-02-02] MEDS: PANTOprazole 40 MG TAB PO SCH (08:38)
[2019-02-02] MEDS: VERAPAMIL HCL 120 MG TABCR PO SCH (08:38)
[2019-02-02] MEDS: DOCUSATE SODIUM 100 MG CAP PO SCH (08:38)
[2019-02-02] MEDS: ASPIRIN 81 MG ECTAB PO SCH (08:39)
[2019-02-02] MEDS: CHOLECALCIFEROL 1,000 UNITS TAB PO SCH (08:39)
[2019-02-02] MEDS: MAGNESIUM OXIDE 400 MG TAB PO SCH (08:39)
[2019-02-02] MEDS: OXYCODONE HCL IR 5 MG TAB (IMMEDIATE RELEASE) PO PRN ×2 (10:04→15:58)
--- NOTE | 2019-02-03 02:18 | Discharge Summary ---
She is alert, oriented. She still has fairly profound weakness to her right lower extremity, which would be equivalent to the 2 and 3, possibly 4 nerve roots on the right hand side. This was exactly directly correlating with her area of pressure and decompression. I fully expected the weakness. Wound is clean and dry. Vascular structures intact. She does have quad strength. It is just only 4-5. No chest pain or shortness of breath. ASSESSMENT: Status post lumbar spine decompression quadriceps weakness. PLAN: She is going to acute nursing facility and/or rehab facility, prescription for oxycodone on her chart. I should see her back in the office in approximately 12 days from the time of this dictation. Instructions given, precautions given. We will see her back for followup examination as stated. Back brace should be worn when she is up and ambulatory and she will need a wheeled walker.
== END 2019-02-02 16:36 ==
LOC: ASU 08:11 → 3E 08:11

== ENCOUNTER 2020-01-16 09:40 | Observation (INO) ==
[2020-01-16] MEDS ORDERED: SODIUM CHLORIDE 0.9% 1000ML 1,000 ML IV SCH (10:00)
[2020-01-16 10:05] LABS: Basophils # (auto) 0.02 K/uL (0-0.2); Basophils % (auto) 0.3 %; Eosinophils # (auto) 0.11 K/uL (0-0.5); Eosinophils % (auto) 1.5 %; Hematocrit (blood only) 42.3 % (37-47); Hemoglobin 13.9 g/dL (12.0-16.0); Immature Granulocytes # (auto) 0.02 K/uL (0.00-0.02); Immature Granulocytes % (auto) 0.3 %; Lymphocytes # (auto) 2.96 K/uL (1.2-3.4); Lymphocytes % (auto) 40.7 %; Mean Corpuscular Hemoglobin 31.6 pg (25-34); Mean Corpuscular Hgb Conc 32.9 g/dL (32-36); Mean Corpuscular Volume 96.1 fL (80-100); Mean Platelet Volume 10.7 fL (7.4-10.4); Monocytes # (auto) 0.48 K/uL (0.11-0.59); Monocytes % (auto) 6.6 %; Neutrophils # (auto) 3.69 K/uL (1.4-6.5); Neutrophils % (auto) 50.6 %; Platelet Count 225 K/uL (130-400); RDW Coefficient of Variation 13.1 % (11.5-14.5); RDW Standard Deviation 45.9 fL (36.4-46.3); White Blood Count 7.28 K/uL (4.8-10.8)
[2020-01-16 10:15] LABS: Partial Thromboplastin Time 26.8 Seconds (21.0-31.0)
[2020-01-16 10:21] LABS: Alanine Aminotransferase 22 U/L (12-78); Albumin Level 3.9 gm/dl (3.4-5.0); Aspartate Aminotransferase 25 U/L (15-37); BUN Creatinine Ratio 13.5 (10-20); Blood Urea Nitrogen 15 mg/dl (7-18); Calcium 9.9 mg/dl (8.5-10.1); Carbon Dioxide 26 mmol/L (21-32); Chloride 109 mmol/L (98-107); Est GFR (African American) 52.5; Est GFR (Non-African American) 45.3; Glucose 115 mg/dl (70-99); Magnesium 2.3 mg/dl (1.8-2.4); Sodium 141 mmol/L (136-145)
[2020-01-16 10:26] LABS: Albumin Globulin Ratio 1.1 (0.9-2); Alkaline Phosphatase 82 U/L (45-117); Bilirubin,Total 0.5 mg/dl (0.2-1); Globulin 3.4 gm/dl (2.5-4.0); Total Protein 7.3 gm/dl (6.4-8.2); Troponin I < 0.015 ng/ml (0-0.045)
--- NOTE | 2020-01-16 10:26 | XRay Report ---
XR chest 1V portable CLINICAL HISTORY: 89 years-old Female presenting with weakness. TECHNIQUE: Portable upright AP view of the chest was obtained. COMPARISON: 08/03/2018. FINDINGS: Atherosclerosis of the aortic arch. Cardiac silhouette mildly enlarged. No focal opacity. No large ef fusion or pneumothorax. Degenerative changes of the thoracic spine. Upper abdomen normal. IMPRESSION: 1. Mild chronic megaly. No other convincing evidence of acute cardiopulmonary disease. ACT 112: Negative or not required by law. Electronically signed by: Bhanu Love M.D. 01/16/2020 10:25 AM
[2020-01-16] MEDS ORDERED: OPTIRAY 320 125ml IV PRN (10:43)
--- NOTE | 2020-01-16 11:10 | CT Scan Report ---
UNENHANCED CT OF THE BRAIN; CT ANGIOGRAM OF THE BRAIN; CT ANGIOGRAM OF THE NECK CLINICAL HISTORY: Strokelike symptoms. Change in mental status. COMPARISON STUDY: CT of the brain dated 08/19/2016. MR angiogram of the brain dated 06/01/2011. Caroti d artery ultrasound dated 04/14/2015. MRI of the brain dated 08/19/2016. TECHNIQUE: Unenhanced axial CT scan of the brain is performed. Subsequently, following the IV adminis tration of 118 of [address] 320, CT angiogram of the head and neck was performed from the aortic arch t o the vertex. Images are reviewed in the axial, sagittal, and coronal planes. 3-D MIPS images are cre ated and assessed. IV contrast was administered without complication. All measurements were calculate d based on NASCET criteria. A dose lowering technique was utilized adhering to the principles of ALA RA. CT DOSE: 1060.00 mGy.cm FINDINGS: Brain parenchyma: There is age-related involutional change noting mild subcortical and periventricula r microangiopathic disease. There is no hemorrhage, mass effect, or evidence of acute territorial isc hemia by CT criteria. A 1.8 cm enhancing extra-axial lesion is again seen in the right anterior tempo ral fossa on image #86 of the angiographic phase series. A subtle 1.3 cm enhancing lesion along the r ight frontal convexity on image #130 is also likely unchanged. This is not well-visualized as compare d to previous MRI examinations. The ventricles, sulci, and cisterns are prominent secondary to involu tional change. Lowery-white matter differentiation is preserved. No extra-axial fluid collection is see n. Thoracic aorta: Visualized portions of the thoracic aorta are normal in caliber. The aortic arch demo nstrates standard 3-vessel anatomy. Right carotid arterial system: The right common carotid artery is widely patent, as are the right int ernal and external carotid arteries. Left carotid arterial system: The left common carotid artery is widely patent, as are the left product development intern al and external carotid arteries. Vertebral arteries: The vertebral arteries are patent bilaterally and codominant. Subclavian arteries: Widely patent bilaterally. Intracranial vasculature: The [place] of [place] is developmentally complete noting large bilateral pos terior communicating arteries. There is atherosclerotic calcification of the cavernous carotid arteri es. The internal carotid arteries are patent at the skull base, as are the anterior and middle cerebr al arteries bilaterally. The vertebrobasilar system is diminutive. The vertebral arteries and the bas ilar artery are patent, as are the posterior cerebral arteries. The left vertebral artery is dominant . There is no aneurysm, high-grade stenosis, or focal vessel cut off seen throughout the intracranial circulation. Jugular veins: Patent bilaterally. Dural sinuses: Patent. Lung apices: Partially visualized upper lobe lung parenchyma appears clear. Soft tissues: The visualized pharyngeal soft tissues are normal in appearance noting angiographic pha se technique. The oropharyngeal airway appears widely patent. Bilateral thyroid nodules measure up to 1.8 cm. The salivary glands are normal in appearance. No cervical lymphadenopathy is seen. Skeletal structures: The skeletal structures are osteopenic. The calvarium appears intact. The cervic al spine is maintained noting multilevel spondylosis. No lytic or blastic lesion is seen. Orbits: The bony orbits are intact. Orbital contents are normal in appearance noting bilateral ocular lens implants. Sinuses and mastoids: There is a 1.2 cm retention cyst and trace mucosal thickening within the right maxillary antrum. The remaining paranasal sinuses are clear. The mastoid air cells are well pneumatiz ed. IMPRESSION: 1. There is no hemorrhage, mass effect, or evidence of acute territorial ischemia by CT criteria. 2. Unremarkable CT angiogram of the brain. 3. Unremarkable CT angiogram of the neck. 4. There are at least 2 small enhancing extra-axial lesions as above. These were better characterized on previous MRI examinations and likely represent meningiomas. There is no associated mass effect. ACT 112: Negative or not required by law. Results electronically sent 01/16/2020 11:09 AM to: Colton Rg DO Electronically signed by: Lonnie Barrera M.D. 01/16/2020 11:09 AM
--- NOTE | 2020-01-16 13:10 | Emergency Department Note ---
Entered by Rajan Cabrera acting as a scribe for Colton Rg DO History of Present Illness General Chief complaint: Confusion Time Seen by Provider: 01/16/20 09:42 Source: patient and RN notes reviewed Limitations: no limitations History of Present Illness Onset (ago): hour(s) (this morning) Location: head Pain Consistency: + constant Maximum Pain Intensity: 0 Quality: + constant Associated symptoms: + denies other symptoms (trouble breathing); no chest pain, no headaches and no nausea/vomiting The patient is a 89 year old female who presents to the Emergency Room with complaints of confusion starting this morning. The patient states she went to bed okay last night. She states she usually wakes up around [id number] every morning and goes to the bathroom. She states she went to the bathroom this morning and then went back to sleep. She states she does not remember what happened after she went to the bathroom. She states she does not remember call ing her daughter, but states she remembers talking to her. She states she started to feel better on the way to the ED. She states she feels 80% right now. Nursing states the patient was crying on the phone with her daughter and then the daughter called 911. The patient denies having chest pain, headaches, nausea, vomiting, trouble breathing, and having a previous stroke. The patient states she has hypertension. Home Medications Home Medications Medication Instructions Recorded Confirmed Type furosemide 20 mg PO QAM #0 07/29/16 01/16/20 History levothyroxine 50 mcg PO QAM #0 08/19/16 01/16/20 History montelukast 10 mg PO QAM #0 05/30/17 01/16/20 History levalbuterol tartrate 2 inh INHALATION Q6H PRN 01/08/19 01/16/20 History losartan 25 mg PO QAM 01/08/19 01/16/20 History prednisone 10 mg PO DAILY PRN 01/08/19 01/16/20 History verapamil 120 mg PO QAM 01/08/19 01/16/20 History cholecalciferol (vitamin D3) 25 2,000 unit PO QAM cap 08/16/19 01/16/20 History mcg (1,000 unit) capsule magnesium oxide 400 mg (241.3 mg 40 mg PO QAM #90 tab 08/16/19 01/16/20 History magnesium) tablet omeprazole 20 mg capsule,delayed 20 mg PO BID cap 08/16/19 01/16/20 History release aspirin 81 mg PO BID 01/16/20 01/16/20 History rosuvastatin 5 mg PO HS 01/16/20 01/16/20 History Allergies Allergy/AdvReac Type Severity Reaction Status Date / Time No Known Allergies Allergy Verified 01/31/19 08:41 Past Med/Surg History Medical History Bronchitis MOST RECENT FALL 2017; HAS RESCUE KIT TO USE PRN Cancer SKIN Chronic back pain CKD (chronic kidney disease), stage III CVA (cerebral vascular accident) ? CVA VS. TIA 2+ YEARS AGO= ON ASA GERD (gastroesophageal reflux disease) CONTROLLED Heart palpitations History of blood transfusion 2013 POST OP BACK SURGERY Hyperlipidemia Hyperparathyroidism Hypertension Hypothyroidism Obesity Osteoporosis Surgical History History of cardiac cath 2007= NO STENTS; "NORMAL CORONARIES" History of carpal tunnel release BILATERAL History of cataract surgery BILATERAL History of esophagogastroduodenoscopy (EGD) History of lumbar surgery DISCECTOMY/FUSION History of open reduction and internal fixation (ORIF) procedure LEFT ANKLE Hx of appendectomy Hx of cervical spine surgery DISCECTOMY Hx of colonoscopy S/P hardware removal LEFT ANKLE Family History Mother FHx: bladder cancer Father Family history of esophageal cancer Social History Preferred Language: Tajik Communication Ability: Effective Epidemiologist Required: No Beliefs That Will Affect Care: None Current Living Situation: Family Current Living Situation Comment: lives with Mirella Other Information That Helps Us Care for You: No Feels Safe at Home: Yes Safety Concerns: Feels Safe At This Time Smoking Status: Never smoker Do You Dip or Chew Tobacco: No ; Second Hand Exposure: No ; Tobacco Cessation Education Requested by Patient: No Hx Alcohol Use: Yes Alcohol type: wine Hx Substance Use: No Review of Systems See HPI for pertinent positives & negatives. and A total of 10 systems reviewed and were otherwise negative Physical Exam Vital Signs Vital Signs - 24 hr 01/16/20 09:48 01/16/20 10:09 01/16/20 10:10 Temperature 36.8 C Temperature Source Oral Pulse Rate 67 Pulse Rate from SpO2 Sensor 66 68 Respiratory Rate 18 Blood Pressure 191/80 H 173/77 H Blood Pressure Mean 117 90 Pulse Oximetry 96 98 97 Oxygen Delivery Method Room Air Sepsis Recent Fever Within 48 Hours No Sepsis New/Unexplained Change in Mental Status No Sepsis Action Taken by Nursing No Action Required 01/16/20 10:30 01/16/20 10:31 01/16/20 10:58 Temperature Temperature Source Pulse Rate 68 Pulse Rate from SpO2 Sensor 63 68 70 Respiratory Rate 19 Blood Pressure 156/81 H 170/85 H Blood Pressure Mean 111 116 Pulse Oximetry 98 98 98 Oxygen Delivery Method Sepsis Recent Fever Within 48 Hours Sepsis New/Unexplained Change in Mental Status Sepsis Action Taken by Nursing 01/16/20 11:00 01/16/20 11:01 01/16/20 11:30 Temperature Temperature Source Pulse Rate 62 71 62 Pulse Rate from SpO2 Sensor 61 70 61 Respiratory Rate 11 L 25 H 17 Blood Pressure 172/86 H Blood Pressure Mean 120 Pulse Oximetry 98 99 99 Oxygen Delivery Method Sepsis Recent Fever Within 48 Hours Sepsis New/Unexplained Change in Mental Status Sepsis Action Taken by Nursing 01/16/20 11:31 01/16/20 11:32 01/16/20 12:00 Temperature Temperature Source Pulse Rate 63 71 67 Pulse Rate from SpO2 Sensor 63 68 67 Respiratory Rate 14 19 15 Blood Pressure 162/72 H 160/64 H Blood Pressure Mean 93 117 Pulse Oximetry 98 97 97 Oxygen Delivery Method Sepsis Recent Fever Within 48 Hours Sepsis New/Unexplained Change in Mental Status Sepsis Action Taken by Nursing 01/16/20 12:30 01/16/20 12:31 Temperature Temperature Source Pulse Rate 68 62 Pulse Rate from SpO2 Sensor 66 63 Respiratory Rate 20 16 Blood Pressure 177/87 H Blood Pressure Mean 141 Pulse Oximetry 98 98 Oxygen Delivery Method Sepsis Recent Fever Within 48 Hours Sepsis New/Unexplained Change in Mental Status Sepsis Action Taken by Nursing GENERAL: The patient is awake and alert. She is mildly anxious appearing but overall comfortable. EYES: The conjunctivae are clear. The pupils are round and reactive. EARS, NOSE, MOUTH AND THROAT: The nose is without any evidence of any deformity. Mucous membranes are moist. Tongue is midline. NECK: The neck is nontender and supple. RESPIRATORY: Normal respiratory effort is noted there is no evidence of wheezing rhonchi or rales CARDIOVASCULAR: Regular rate and rhythm noted there no murmurs rubs or gallops normal S1 normal S2. GASTROINTESTINAL: The abdomen is soft. Abdomen is nontender. MUSCULOSKELETAL/EXTREMITIES: There is no evidence of gross deformity full range of motion is noted in the hips and shoulders. SKIN: There is no obvious evidence of any rash. There are no petechiae, pallor or cyanosis noted. NEUROLOGIC: Patient is awake alert and oriented to person place and situation. She initially was unsure of the year but was able to eventually state that it was 2019. Strength is symmetric. There is no drift. There is no facial droop. Patient had some mistakes with simple math problems. Course Course 0948: The patient was evaluated in room B7, and a complete history and physical examination were performed. 1240: I discussed the patient's case with Carmen Phillip PA-C. Dr. Frank will evaluate the patient for further management. Administered Medications Furosemide (Lasix) 20 mg PO QAM [facility] Stop: 02/15/20 15:29 Last Admin: 01/16/20 15:37 Dose: 20 mg Documented by: [id number] Losartan Potassium (Cozaar) 25 mg PO QAM [facility] Stop: 02/15/20 15:29 Last Admin: 01/16/20 15:38 Dose: 25 mg Documented by: [id number] Verapamil HCl (Calan Sr) 120 mg PO QAM [facility] Stop: 02/15/20 15:29 Last Admin: 01/16/20 15:38 Dose: 120 mg Documented by: [id number] Discontinued Medications Sodium Chloride (Nss 1000ml) 1,000 mls @ 50 mls/hr IV .Q20H [facility] Stop: 02/15/20 09:59 Last Infusion: 01/16/20 15:25 Dose: 0 mls/hr Documented by: [id number] Admin: 01/16/20 10:55 Dose: 50 mls/hr Documented by: [id number] Ioversol (Optiray 320 125ml) 118 ml IV ONCE PRN PRN Reason: Interaction Checking Stop: 01/20/20 10:42 Last Admin: 01/16/20 10:46 Dose: 118 ml Documented by: [id number] Medical Decision Making Differential Diagnosis Differential Diagnosis includes but is not limited to ischemic Stroke, hemorrhagic stroke, bells palsy, mass, neoplasm, migraine headache, seizure, subarachnoid hemorrhage, TIA, and transient global amnesia. Medical Records Attestation: I reviewed the patient's medical records. Home Medications Current Medication List: was personally reviewed by me Laboratory Data Attestation: I reviewed the patient's lab results. Result diagrams: 01/16/20 09:30 01/16/20 09:30 Lab Results 01/16/20 01/16/20 01/16/20 Range/Units 09:30 09:30 09:30 WBC 7.28 (4.8-10.8) K/uL RBC 4.40 (4.2-5.4) M/uL Hgb 13.9 (12.0-16.0) g/dL Hct 42.3 (37-47) % MCV 96.1 (80-100) fL MCH 31.6 (25-34) pg MCHC 32.9 (32-36) g/dL RDW Std Deviation 45.9 (36.4-46.3) fL RDW Coeff of Vivienne 13.1 (11.5-14.5) % Plt Count 225 (130-400) K/uL MPV 10.7 H (7.4-10.4) fL Immature Gran % (Auto) 0.3 % Neut % (Auto) 50.6 % Lymph % (Auto) 40.7 % [place] % (Auto) 6.6 % Eos % (Auto) 1.5 % Baso % (Auto) 0.3 % Immature Gran # (Auto) 0.02 (0.00-0.02) K/uL Neut # (Auto) 3.69 (1.4-6.5) K/uL Lymph # (Auto) 2.96 (1.2-3.4) K/uL [place] # (Auto) 0.48 (0.11-0.59) K/uL Eos # (Auto) 0.11 (0-0.5) K/uL Baso # (Auto) 0.02 (0-0.2) K/uL PT 10.0 (9.0-12.0) Seconds INR 1.0 (0.9-1.1) APTT 26.8 (21.0-31.0) Seconds PTT Ratio 1.0 Sodium 141 (136-145) mmol/L Potassium 4.0 (3.5-5.1) mmol/L Chloride 109 H (98-107) mmol/L Carbon Dioxide 26 (21-32) mmol/L Anion Gap 6.0 (3-11) BUN 15 (7-18) mg/dl Creatinine 1.09 (0.6-1.2) mg/dl Est Cr Clr Drug Dosing 39.0 ml/min Est GFR ( Amer) 52.5 Est GFR (Non-Af Amer) 45.3 BUN/Creatinine Ratio 13.5 (10-20) Glucose 115 H (70-99) mg/dl Calcium 9.9 (8.5-10.1) mg/dl Magnesium 2.3 (1.8-2.4) mg/dl Total Bilirubin 0.5 (0.2-1) mg/dl AST 25 (15-37) U/L ALT 22 (12-78) U/L Alkaline Phosphatase 82 (45-117) U/L Troponin I < 0.015 (0-0.045) ng/ml Total Protein 7.3 (6.4-8.2) gm/dl Albumin 3.9 (3.4-5.0) gm/dl Globulin 3.4 (2.5-4.0) gm/dl Albumin/Globulin Ratio 1.1 (0.9-2) Imaging Data Radiologist's Impression: Radiology results as stated below per my review and the radiologist's interpretation: UNENHANCED CT OF THE BRAIN; CT ANGIOGRAM OF THE BRAIN; CT ANGIOGRAM OF THE NECK CLINICAL HISTORY: Strokelike symptoms. Change in mental status. COMPARISON STUDY: CT of the brain dated 08/19/2016. MR angiogram of the brain dated 06/01/2011. Carotid artery ultrasound dated 04/14/2015. MRI of the brain dated 08/19/2016. TECHNIQUE: Unenhanced axial CT scan of the brain is performed. Subsequently, fo llowing the IV administration of 118 of Optiray 320, CT angiogram of the head and neck was performed from the aortic arch to the vertex. Images are reviewed in the axial, sagittal, and coronal planes. 3-D MIPS images are created and assessed. IV contrast was administered without complication. All measurements were calculated based on NASCET criteria. A dose lowering technique was utilized adhering to the principles of ALARA. CT DOSE: 1060.00 mGy.cm FINDINGS: Brain parenchyma: There is age-related involutional change noting mild subcortical and periventricular microangiopathic disease. There is no hemorrhage, mass effect, or evidence of acute territorial ischemia by CT criteria. A 1.8 cm enhancing extra-axial lesion is again seen in the right anterior temporal fossa on image #86 of the angiographic phase series. A subtle 1.3 cm enhancing lesion along the right frontal convexity on image #130 is also likely unchanged. This is not well-visualized as compared to previous MRI examinations. The ventricles, sulci, and cisterns are prominent secondary to involutional change. Lowery-white matter differentiation is preserved. No extra- axial fluid collection is seen. Thoracic aorta: Visualized portions of the thoracic aorta are normal in caliber. The aortic arch demonstrates standard 3-vessel anatomy. Right carotid arterial system: The right common carotid artery is widely patent, as are the right internal and external carotid arteries. Left carotid arterial system: The left common carotid artery is widely patent, as are the left internal and external carotid arteries. Vertebral arteries: The vertebral arteries are patent bilaterally and codominant. Subclavian arteries: Widely patent bilaterally. Intracranial vasculature: The [place] is developmentally complete no ting large bilateral posterior communicating arteries. There is atherosclerotic calcification of the cavernous carotid arteries. The internal carotid arteries are patent at the skull base, as are the anterior and middle cerebral arteries bilaterally. The vertebrobasilar system is diminutive. The vertebral arteries and the basilar artery are patent, as are the posterior cerebral arteries. The left vertebral artery is dominant. There is no aneurysm, high-grade stenosis, or focal vessel cut off seen throughout the intracranial circulation. Jugular veins: Patent bilaterally. Dural sinuses: Patent. Lung apices: Partially visualized upper lobe lung parenchyma appears clear. Soft tissues: The visualized pharyngeal soft tissues are normal in appearance noting angiographic phase technique. The oropharyngeal airway appears widely patent. Bilateral thyroid nodules measure up to 1.8 cm. The salivary glands are normal in appearance. No cervical lymphadenopathy is seen. Skeletal structures: The skeletal structures are osteopenic. The calvarium appears intact. The cervical spine is maintained noting multilevel spondylosis. No lytic or blastic lesion is seen. Orbits: The bony orbits are intact. Orbital contents are normal in appearance noting bilateral ocular lens implants. Sinuses and mastoids: There is a 1.2 cm retention cyst and trace mucosal thickening within the right maxillary antrum. The remaining paranasal sinuses are clear. The mastoid air cells are well pneumatized. IMPRESSION: 1. There is no hemorrhage, mass effect, or evidence of acute territorial ischemia by CT criteria. 2. Unremarkable CT angiogram of the brain. 3. Unremarkable CT angiogram of the neck. 4. There are at least 2 small enhancing extra-axial lesions as above. These were better characterized on previous MRI examinations and likely represent meningiomas. There is no associated mass effect. ACT 112: Negative or not required by law. Results electronically sent 01/16/2020 11:09 AM to: Colton Rg DO Electronically signed by: Lonnie Barrera M.D. 01/16/2020 11:09 AM XR chest 1V portable CLINICAL HISTORY: 89 years-old Female presenting with weakness. TECHNIQUE: Portable upright AP view of the chest was obtained. COMPARISON: 08/03/2018. FINDINGS: Atherosclerosis of the aortic arch. Cardiac silhouette mildly enlarged. No focal opacity. No large effusion or pneumothorax. Degenerative changes of the thoracic spine. Upper abdomen normal. IMPRESSION: 1. Mild chronic megaly. No other convincing evidence of acute cardiopulmonary disease. ACT 112: Negative or not required by law. Electronically signed by: Bhanu Love M.D. 01/16/2020 10:25 AM ECG Data Attestation: I personally reviewed and interpreted this ECG as follows: Indication: + weakness Rate (beats per minute): 65 Rhythm: + normal sinus ECG ST segments: no ST depression and no ST elevation ECG Findings: + Other (Diffuse T wave flattening); no PACs and no PVCs Comparison ECG Date: from (02/02/19) Change: no significant change Blood Pressure Blood Pressure Findings: Elevated blood pressure Blood Pressure Disposition: further management by hospitalist GARIMA Moody Continuous Cardiac Monitoring: An order was placed for continuous cardiac monitoring. The monitor shows a rate of 66 with a normal sinus rhythm The patient is an 89-year-old female who presented to the emergency department for an evaluation of possible stroke. Apparently the patient states that she woke up this morning at her normal time to use the bathroom. This was approxi mately 6 AM. She then went back to sleep. After she woke up the second time she is not quite sure exactly what happened. The patient states that she has had difficulty remembering exactly getting dressed but at some point she called her daughter because she did not feel quite right. Her daughter then called the ambulance and the patient was sent to the emergency department for further evaluation. According the patient's daughter she was concerned her mother was having a stroke because of her dysarthria. The patient had very minor symptoms upon arrival including some difficulty remembering the events of the morning but also she could not do some simple math problems. She initially was not oriented to the year. She was reevaluated multiple times. She continued to improve while she was in the emergency department. The patient was not made a stroke alert because a definite last known well time could not be established. CT the head as well as CT angiography of the head and neck not reveal any acute disease. I discussed the patient's laboratory and radiographic studies with her . Given her presentation I do feel this could be consistent with a very significant TIA. For this reason I discussed her case with the on-call [facility] hospitalist group. They have agreed to evaluate the patient in the emergency department for further management and disposition. Impression & Plan TIA (transient ischemic attack) Discharge Plan Visit Data *Final* Discharge Date/Time: 01/16/20 13:50 Chief Complaint: Confusion ED Provider: Colton Rg Discharge Problem: TIA (transient ischemic attack) Patient Disposition: Admitted As Inpatient Discharge Instructions Interventions: ED Discharge Assessment Last Done: 01/16/20 13:50 The scribe's documentation has been prepared under my direction and personally reviewed by me in its entirety. I confirm that the note above accurately reflects all work, treatment, procedures, and medical decision making performed by me.
--- NOTE | 2020-01-16 13:38 | History & Physical Report ---
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 In ED patient remained hemodynamically stable. Her mental status completely returned to baseline upon my evaluation. CBC, CMP, troponin relatively unremarkable. She underwent chest x-ray which revealed cardiomegaly but no acute cardiopulmonary disease. Head CT was negative for hemorrhage, but did reveal chronic microvascular disease change 2 small enhancing extra-axial lesions, 1.8 cm right anterior temporal fossa and 1.3 cm right frontal convexity which are unchanged to prior exams, likely of present meningiomas. She did receive IVF while in ED. ddx: TIA, transient global amnesia, seizure like activity does not appear to be infectious as sx have resolved, she is afebrile and asymptomatic admit to tele consult neurology MRI ordered EEG Echocardiogram a1c, lipid panel in a.m. currently on ASA bid and crestor - await neuro recs for further antiplatelet activity if felt to be TIA (3) Hypertension: blood pressure elevated in ED did not take a.m. lasix, losartan or verapamil resume meds (4) Diastolic heart failure: euvolemic on exam per pt baseline weight 197-200lb continue lasix, losartan daily weights, strict I and O heart healthy diet echocardiogram ordered (5) Hyperlipidemia: continue statin (6) CKD (chronic kidney disease), stage III: baseline Cr 1.0 bun/cr stable 15 and 1.09 (7) GERD (gastroesophageal reflux disease): continue PPI (8) DVT prophylaxis: SCD/TEDS for now consider adding lovenox if to require hospitalization > 24hrs Disposition: admit to med tele Follow up: PCP Dr. Renae upon discharge Pt was seen and examined in collaboration with Dr. Frank, please see addendum History of Present Illness Chief Complaint: Confusion x few hours. 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 Her last known time well according to patient was approximately 8 AM. She said she woke up and was heading downstairs in her lift chair which is her normal routine. Last time she can recall was approximately 8 AM. She does not recall any events that occurred from then until when she was in the ambulance. She vaguely remembers being tended to and EMS but did not totally return to normal consciousness until in her ED room. According to report patient I called daughter and when she was noted to be dysarthric and confused therefore EMS was called. Per EMS report her symptoms were starting to improve when they saw her and continued to improve in route to ED. She denies any loss of bowel or bladder incontinence or generalized weakness. She denies any recent illness. She does admit to mild right-sided frontal headache 2/10 which is not unusual for her. She denies any dizziness, lightheadedness, visual changes, hearing changes, chest pain, shortness, palpitations, nausea, vomiting, diarrhea, dysuria, increased urgency or frequency with urination, melena, hematochezia. She does have a chronic dry cough. She took her levothyroxine this a.m. but no other a.m. medications. Appetite has been normal. She weighs her self daily and recalls weighing herself this morning but does not recall weight. Her weight fluctuates between 197 and 200. She does have mild lower extremity swelling for which she takes Lasix for. No recent significant stressors in life. 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 In ED patient remained hemodynamically stable. Her mental status completely returned to baseline upon my evaluation. CBC, CMP, troponin relatively unremarkable. She underwent chest x-ray which revealed cardiomegaly but no acute cardiopulmonary disease. Head CT was negative for hemorrhage, but did reveal chronic microvascular disease change 2 small enhancing extra-axial lesions, 1.8 cm right anterior temporal fossa and 1.3 cm right frontal convexity which are unchanged to prior exams, likely of present meningiomas. She did receive IVF while in ED. Allergies Allergy/AdvReac Type Severity Reaction Status Date / Time No Known Allergies Allergy Verified 01/31/19 08:41 Home Medications Home Medications Medication Instructions Recorded Confirmed Type furosemide 20 mg PO QAM #0 07/29/16 01/16/20 History levothyroxine 50 mcg PO QAM #0 08/19/16 01/16/20 History montelukast 10 mg PO QAM #0 05/30/17 01/16/20 History levalbuterol tartrate 2 inh INHALATION Q6H PRN 01/08/19 01/16/20 History losartan 25 mg PO QAM 01/08/19 01/16/20 History prednisone 10 mg PO DAILY PRN 01/08/19 01/16/20 History verapamil 120 mg PO QAM 01/08/19 01/16/20 History cholecalciferol (vitamin D3) 25 2,000 unit PO QAM cap 08/16/19 01/16/20 History mcg (1,000 unit) capsule magnesium oxide 400 mg (241.3 mg 40 mg PO QAM #90 tab 08/16/19 01/16/20 History magnesium) tablet omeprazole 20 mg capsule,delayed 20 mg PO BID cap 08/16/19 01/16/20 History release aspirin 81 mg PO BID 01/16/20 01/16/20 History rosuvastatin 5 mg PO HS 01/16/20 01/16/20 History Past Med/Surg History Medical History Bronchitis MOST RECENT FALL 2017; HAS RESCUE KIT TO USE PRN Cancer SKIN Chronic back pain CKD (chronic kidney disease), stage III CVA (cerebral vascular accident) ? CVA VS. TIA 2+ YEARS AGO= ON ASA GERD (gastroesophageal reflux disease) CONTROLLED Heart palpitations History of blood transfusion 2013 POST OP BACK SURGERY Hyperlipidemia Hyperparathyroidism Hypertension Hypothyroidism Obesity Osteoporosis Surgical History History of cardiac cath 2007= NO STENTS; "NORMAL CORONARIES" History of carpal tunnel release BILATERAL History of cataract surgery BILATERAL History of esophagogastroduodenoscopy (EGD) History of lumbar surgery DISCECTOMY/FUSION History of open reduction and internal fixation (ORIF) procedure LEFT ANKLE Hx of appendectomy Hx of cervical spine surgery DISCECTOMY Hx of colonoscopy S/P hardware removal LEFT ANKLE Family History Mother FHx: bladder cancer Father Family history of esophageal cancer Social History Preferred Language: Croatian Communication Ability: Effective Manager Cath Lab Required: No Beliefs That Will Affect Care: None Current Living Situation: Family Current Living Situation Comment: lives with Mirella Other Information That Helps Us Care for You: No Feels Safe at Home: Yes Safety Concerns: Feels Safe At This Time Smoking Status: Never smoker Do You Dip or Chew Tobacco: No ; Second Hand Exposure: No ; Tobacco Cessation Education Requested by Patient: No Hx Alcohol Use: Yes Alcohol type: wine Hx Substance Use: No Review of Systems Review of Systems: All systems reviewed & are unremarkable except as noted in HPI & below Physical Exam Physical Exam: Constitutional: WD/WN, vitals as above, NAD, sitting up in bed, pleasant, conversing easily Head: Normocephalic, Atraumatic Eyes: PERRL, conjunctivae normal, anicteric sclerae ENMT: external ear and nose normal, oropharynx normal, few absent teeth Neck: trachea midline, no thyromegaly normal visual inspection Respiratory: normal respiratory effort, lungs clear to auscultation, no wheeze, rales, rhonchi. Normal insp/exp effort, no accessory muscle use Cardiovascular: RRR, no murmur, no edema Vessels: no JVD or carotid bruit Chest: normal inspection of chest Abdomen: obese, normal bowel sounds, soft, nontender, no hepatosplenomegaly Musculoskeletal: no cyanosis or clubbing, extremities motor strength 5/5 Skin: no rashes, warm and dry normal turgor Neurologic: PERRL, EOMI, accommodation nl, no face palsy, no dysarthria CN's II-XI intact bilaterally and moves all extremities Psychiatric: A+Ox3, euthymic affect Lymphatic: no cervical or axillary lymphadenopathy : deferred Results & Data Vital Signs (Past 12 Hours) Vital Signs Temp Pulse Resp BP Pulse Ox 01/16/20 12:00 67 15 160/64 H 97 01/16/20 11:32 71 19 97 01/16/20 11:31 63 14 162/72 H 98 01/16/20 11:30 62 17 99 01/16/20 11:01 71 25 H 99 01/16/20 11:00 62 11 L 172/86 H 98 01/16/20 10:58 68 19 170/85 H 98 01/16/20 10:31 98 01/16/20 10:30 156/81 H 98 01/16/20 10:10 97 01/16/20 10:09 173/77 H 98 01/16/20 09:48 36.8 C 67 18 191/80 H 96 Laboratory Results Short CBC 01/16/20 01/16/20 Range/Units 09:30 09:30 WBC 7.28 (4.8-10.8) K/uL Hgb 13.9 (12.0-16.0) g/dL Hct 42.3 (37-47) % Plt Count 225 (130-400) K/uL Glucose 115 H (70-99) mg/dl BMP 01/16/20 09:30 Sodium 141 Potassium 4.0 Chloride 109 H Carbon Dioxide 26 BUN 15 Creatinine 1.09 Glucose 115 H Calcium 9.9 Cardiac Enzymes 01/16/20 Range/Units 09:30 Troponin I < 0.015 (0-0.045) ng/ml Liver Function 01/16/20 Range/Units 09:30 Total Bilirubin 0.5 (0.2-1) mg/dl AST 25 (15-37) U/L ALT 22 (12-78) U/L Alkaline Phosphatase 82 (45-117) U/L Albumin 3.9 (3.4-5.0) gm/dl Diagnostic Findings Head CT/Head and neck CTA: IMPRESSION: 1. There is no hemorrhage, mass effect, or evidence of acute territorial ischemia by CT criteria. 2. Unremarkable CT angiogram of the brain. 3. Unremarkable CT angiogram of the neck. 4. There are at least 2 small enhancing extra-axial lesions as above. These were better characterized on previous MRI examinations and likely represent meningiomas. There is no associated mass effect. CXR: IMPRESSION: 1. Mild chronic megaly. No other convincing evidence of acute cardiopulmonary disease. Medications Administered Sodium Chloride (Nss 1000ml) 1,000 mls @ 50 mls/hr IV .Q20H [facility] Stop: 02/15/20 09:59 Last Admin: 01/16/20 10:55 Dose: 50 mls/hr Documented by: [id number] Ioversol (Optiray 320 125ml) 118 ml IV ONCE PRN PRN Reason: Interaction Checking Stop: 01/20/20 10:42 Last Admin: 01/16/20 10:46 Dose: 118 ml Documented by: [id number] ECG Rate (beats per minute): 65 Rhythm: normal sinus Code Status & VTE Plan Code Status DNR VTE Prophylaxis Plan VTE Prophylaxis will be ordered: Yes Supervising Physician Co-Signing Physician Notes Attending addendum: The patient was seen and examined in emergency room She was brought into the emergency room with unresponsive episode at home She did not have any warning symptoms before that episode and she cannot remember anything about it In the emergency room she did not have any symptoms to report On examination Lying in bed with some discomfort at the back Hemodynamically stable Chest-clear to auscultate bilaterally Heart-S1-S2 regular, no murmur appreciated Abdomen-benign, nontender, bowel sounds present Extremities-trace edema bilaterally FLOOR ATTENDANT-alert, awake and oriented x3. Generally weak without any focal neuro deficit Admission labs, EKG and imaging studies noted No significant abnormalities were noted in CT of the head, CTA and EKG -Memory has returned to normal and she does not have any neurological deficit on examination Likely suffered transient global amnesia with a similar episode a few years back MRI of the head, echocardiogram with bubble study, neurology consult and EEG Reviewed assessment plan as outlined above by Luigi Frank
[2020-01-16] MEDS ORDERED: LEVALBUTEROL TARTRATE 15 GM HFA.AER.AD INH PRN (14:59)
[2020-01-16] MEDS ORDERED: POLYETHYLENE (MIRALAX) 17 GM PACK PO PRN (14:59)
[2020-01-16] MEDS ORDERED: ONDANSETRON INJ 2 MG/ML 2 ML VIAL IV PRN (14:59)
[2020-01-16] MEDS ORDERED: MAGNESIUM HYDROXIDE SUSP 30 ML UDC PO PRN (14:59)
[2020-01-16] MEDS ORDERED: PHARMACIST DISCHARGE MED REC CONSULT PRN (14:59)
[2020-01-16] MEDS ORDERED: ALUMINUM/MAGNESIUM SUSP 30 ML UDC PO PRN (14:59)
[2020-01-16] MEDS: FUROSEMIDE 20 MG TAB PO SCH (15:37)
[2020-01-16] MEDS: VERAPAMIL HCL 120 MG TABCR PO SCH (15:38)
[2020-01-16] MEDS: LOSARTAN POTASSIUM 25 MG TAB PO SCH (15:38)
--- NOTE | 2020-01-16 15:49 | Neurology Consultation ---
Date of Consultation January 16, 2020 Assessment & Plan (1) Transient confusion: 1. 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 CTA head and neck no significant stenosis or occlusion 3. CT head- no acute findings 4. MRI brain ordered pending 5. TTE- pending 6. continue aspirin 81 mg and add plavix 75 mg x 21 days then plavix for life 7. PT/OT no discharge needs at this time 8. optimize HTN, HLD LDL < 70 consider patient age 9. EEG ordered -will be done tomorrow- r/o focal seizure event (2) TIA (transient ischemic attack): Supervising Physician Co-Signing Physician Notes I have seen and discussed above patient with Dr Ranjeet Fairchild, neurology I have seen and examined and interviewed this 89-year-old woman in the presence of Yuliana Ruiz and her daughter. I saw her apparently 78 years ago for very similar event of transient global amnesia and it appears that she is had a recurrent event of fairly typical nature lasting probably 4 hours or so based on history we have available c haracterized by repetitious questioning and immediate memory deficits and total amnesia for the event She now has a generalized headaches but did not have this apparently in the last event does not have a history of migraines In addition to her age she has other vascular risk factors and we are going to need an MRI to be certain there is nothing small dominant medial temporal infarction or area of ischemia but thus far imaging studies have been unrevealing and CT angiography etc. was normal release but sufficiently abnormal to explain the current problem We will also do an EEG even though I doubt that this was a partial seizures or nonconvulsive seizure equivalent Currently her examination is normal he is back to her clinical baseline according to daughter and her only complaint is a mild headache Dr. Arora will be assuming her care tomorrow and reviewed the MRI and EEG results. 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 She called her daughter and she said her mother called her around 8a and was confused regarding where she was. She kept repeating the same thing so she called 911 and she was able to talk to her to get on the chair lift go down stairs and open the door. She does not recall any events that occurred from then until when she was in the ambulance. She vaguely remembers being tended to and EMS but kept asking how she got the the ED. Until in her ED room which would have been several hours she was then aware of where s he was and remembers the CT scan being done She does admit to mild right-sided frontal headache 2/10 which is not unusual for her. She does have a chronic dry cough. She does have mild lower extremity swelling for which she takes Lasix for. No recent significant stressors in life. She had an episode of transient global amnesia 7-8 years ago post traumatic event. She is currently feeling back to her baseline accept for a slight headache across her forehead. denies CP, SOB, abdominal pain, one sided weakness, numbness tingling, N, V. Allergies Allergy/AdvReac Type Severity Reaction Status Date / Time No Known Allergies Allergy Verified 01/31/19 08:41 Home Medications Home Medications Medication Instructions Recorded Confirmed Type furosemide 20 mg PO QAM #0 07/29/16 01/16/20 History levothyroxine 50 mcg PO QAM #0 08/19/16 01/16/20 History montelukast 10 mg PO QAM #0 05/30/17 01/16/20 History levalbuterol tartrate 2 inh INHALATION Q6H PRN 01/08/19 01/16/20 History losartan 25 mg PO QAM 01/08/19 01/16/20 History prednisone 10 mg PO DAILY PRN 01/08/19 01/16/20 History verapamil 120 mg PO QAM 01/08/19 01/16/20 History cholecalciferol (vitamin D3) 25 2,000 unit PO QAM cap 08/16/19 01/16/20 History mcg (1,000 unit) capsule magnesium oxide 400 mg (241.3 mg 40 mg PO QAM #90 tab 08/16/19 01/16/20 History magnesium) tablet omeprazole 20 mg capsule,delayed 20 mg PO BID cap 08/16/19 01/16/20 History release aspirin 81 mg PO BID 01/16/20 01/16/20 History rosuvastatin 5 mg PO HS 01/16/20 01/16/20 History Patient History Medical History Bronchitis MOST RECENT FALL 2017; HAS RESCUE KIT TO USE PRN Cancer SKIN Chronic back pain CKD (chronic kidney disease), stage III CVA (cerebral vascular accident) ? CVA VS. TIA 2+ YEARS AGO= ON ASA GERD (gastroesophageal reflux disease) CONTROLLED Heart palpitations History of blood transfusion 2013 POST OP BACK SURGERY Hyperlipidemia Hyperparathyroidism Hypertension Hypothyroidism Obesity Osteoporosis Surgical History History of cardiac cath 2007= NO STENTS; "NORMAL CORONARIES" History of carpal tunnel release BILATERAL History of cataract surgery BILATERAL History of esophagogastroduodenoscopy (EGD) History of lumbar surgery DISCECTOMY/FUSION History of open reduction and internal fixation (ORIF) procedure LEFT ANKLE Hx of appendectomy Hx of cervical spine surgery DISCECTOMY Hx of colonoscopy S/P hardware removal LEFT ANKLE Family History Mother FHx: bladder cancer Father Family history of esophageal cancer Social History Preferred Language: Azeri Communication Ability: Effective Automatic Thread Winder Required: No Beliefs That Will Affect Care: None Current Living Situation: Family Current Living Situation Comment: lives with Mirella Other Information That Helps Us Care for You: No Feels Safe at Home: Yes Safety Concerns: Feels Safe At This Time Smoking Status: Never smoker Do You Dip or Chew Tobacco: No ; Second Hand Exposure: No ; Tobacco Cessation Education Requested by Patient: No Hx Alcohol Use: Yes Alcohol type: wine Hx Substance Use: No Physical Exam Physical Exam: Physical Exam: Constitutional: appearance over nourished, healthy Ears, Nose, Mouth and Throat: mucous membranes moist, no injection and skin normal, eyes normal Cardiovascular: normal S-1 and S-2 and regular rate and rhythm Respiratory: course breath sounds Musculoskeletal: no peripheral edema and good distal pulses Skin: no stigmata of neurocutaneous disease noted and normal and intact Eyes: extraocular muscles intact (EOMI) and pupils equal, round and reactive to light (PERRL) NEUROLOGIC EXAMINATION: Mental status: Alert and interactive Oriented to full date and location Oriented to person Speech fluent with no evidence of aphasia Cranial Nerves smile eye brow raise symmetric Reflexes: Deep tendon reflexes were symmetrical and graded 2/5. down going toes Sensory: intact to light and cool touch Coordination: finger to nose no bi pass, rapid hand movements intact Gait/Stance: Posture normal sitting up in bed Motor: Negative for pronator drift of out stretched arms with eyes closed. 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 5/5 bilaterally, hip flex right 4+/5, left 5/5 plantar flex ext 5/5 bilaterally Results & Data Vital Signs (Past 12 Hours) Vital Signs Temp Pulse Pulse Resp BP BP Pulse Ox 01/16/20 15:34 36.5 C 87 18 184/78 H 97 01/16/20 13:32 64 13 130/65 99 01/16/20 13:31 71 10 L 130/65 99 01/16/20 13:30 64 17 100 01/16/20 13:00 66 21 184/94 H 99 01/16/20 12:31 62 16 177/87 H 98 01/16/20 12:30 68 20 98 01/16/20 12:00 67 15 160/64 H 97 01/16/20 11:32 71 19 97 01/16/20 11:31 63 14 162/72 H 98 01/16/20 11:30 62 17 99 01/16/20 11:01 71 25 H 99 01/16/20 11:00 62 11 L 172/86 H 98 01/16/20 10:58 68 19 170/85 H 98 01/16/20 10:31 98 01/16/20 10:30 156/81 H 98 01/16/20 10:10 97 01/16/20 10:09 173/77 H 98 01/16/20 09:48 36.8 C 67 18 191/80 H 96 Laboratory Results Abnormal lab results 01/16/20 01/16/20 Range/Units 09:30 09:30 MPV 10.7 H (7.4-10.4) fL Chloride 109 H (98-107) mmol/L Glucose 115 H (70-99) mg/dl Diagnostic Findings CT head/CTA head and neck-There is no hemorrhage, mass effect, or evidence of acute territorial ischemia by CT criteria. . Unremarkable CT angiogram of the brain. . Unremarkable CT angiogram of the neck. There are at least 2 small enhancing extra-axial lesions as above. These were better characterized on previous MRI examinations and likely represent meningiomas. There is no associated mass effect. CXR-Mild chronic megaly. No other convincing evidence of acute cardiopulmonary disease.
[2020-01-16] MEDS ORDERED: LORazepam 0.5 MG/1 ML VIAL IV ONE ×2 (16:07→22:15)
[2020-01-16] MEDS: PANTOprazole 40 MG TAB PO SCH (20:28)
[2020-01-16] MEDS ORDERED: ROSUVASTATIN CALCIUM 5 MG TAB PO SCH (21:00)
[2020-01-16] MEDS ORDERED: ASPIRIN 81 MG ECTAB PO SCH (21:00)
--- NOTE | 2020-01-16 21:27 | Electrocardiogram Report ---
Test Reason : Blood Pressure : / mmHG Vent. Rate : 065 BPM Atrial Rate : 065 BPM P-R Int : 190 ms QRS Dur : 092 ms QT Int : 408 ms P-R-T Axes : -02 -23 035 degrees QTc Int : 424 ms Normal sinus rhythm Nonspecific T wave abnormality Abnormal ECG When compared with ECG of 02-FEB-2019 13:39, Nonspecific T wave abnormality now evident in Anterior leads Confirmed by Victor Manuel Mueller ([id number]) on 01/16/2020 9:27:21 PM Referred By: REFERRED SELF Confirmed By:Victor Manuel Mueller
--- NOTE | 2020-01-16 23:01 | Magnetic Resonance Report ---
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 Increased diffusion-weighted si gnal the right frontal lobe on image 13 series 4 appears similar to comparison study and is likely se condary to the adjacent previously mentioned extra-axial lesion which was measured at 1.5 cm on jose rison study suggestive of probable meningioma. No restricted diffusion to suggest acute or subacute i nfarct. Midline structures including the corpus callosum, brainstem, optic chiasm, pituitary and pine al glands appear unremarkable in sagittal T1 series. 4 mm pineal gland cyst. No cerebellar tonsillar herniation. Degenerative changes are noted about the imaged cervical spine. There is no acute intracranial hemorrhage, midline shift, abnormal extra-axial collection, hydrocepha sunni or intra-axial mass identified. Extra-axial lesion of the medial aspect right middle cranial chucho a has increased in size from the 2016 exam where it measured 1.4 cm in greatest dimension, now measur ing up to approximately 1.9 cm. The previously noted subcentimeter lesion adjacent to left frontal lo be is not definitively seen without the use of IV contrast. Mild age-related involutional changes. Th ere are a few scattered areas of T2/FLAIR prolongation within the white matter suggestive of probable chronic microvascular ischemic disease. The major vascular flow voids appear patent. Small left mastoid effusion. Mild polypoid mucosal thick ening of the right maxillary sinus. Prior bilateral lens replacement. The skull and soft tissues are unremarkable. IMPRESSION: 1. No acute intracranial abnormality, specifically there is no evidence of acute or subacute infarct. 2. Previously described enhancing extra-axial lesions suggestive of meningiomas are suboptimally eval uated without the use of IV contrast. The lesion within the right middle cranial fossa appears to hav e mildly increased in size from the 2016 exam. ACT 112: Negative or not required by law. The above report was generated using voice recognition software. It may contain grammatical, syntax o r spelling errors. Results electronically sent 01/16/2020 10:59 PM to: Carmen Reza PA-C Electronically signed by: Harsh Wagoner M.D. 01/16/2020 10:59 PM
[2020-01-17] MEDS: ACETAMINOPHEN 325 MG TAB PO PRN ×2 (04:29→13:48)
[2020-01-17] MEDS ORDERED: LEVOTHYROXINE SODIUM 50 MCG TABLET PO SCH (06:30)
[2020-01-17 06:47] LABS: Basophils # (auto) 0.02 K/uL (0-0.2); Basophils % (auto) 0.3 %; Eosinophils # (auto) 0.13 K/uL (0-0.5); Eosinophils % (auto) 1.9 %; Hematocrit (blood only) 37.8 % (37-47); Hemoglobin 12.4 g/dL (12.0-16.0); Immature Granulocytes # (auto) 0.02 K/uL (0.00-0.02); Immature Granulocytes % (auto) 0.3 %; Lymphocytes # (auto) 2.24 K/uL (1.2-3.4); Lymphocytes % (auto) 33.1 %; Mean Corpuscular Hemoglobin 31.2 pg (25-34); Mean Corpuscular Hgb Conc 32.8 g/dL (32-36); Mean Platelet Volume 10.4 fL (7.4-10.4); Monocytes % (auto) 8.9 %; Neutrophils # (auto) 3.76 K/uL (1.4-6.5); Neutrophils % (auto) 55.5 %; Platelet Count 192 K/uL (130-400); RDW Coefficient of Variation 13.2 % (11.5-14.5); RDW Standard Deviation 45.8 fL (36.4-46.3); Red Blood Count 3.98 M/uL (4.2-5.4); White Blood Count 6.77 K/uL (4.8-10.8)
[2020-01-17 07:19] LABS: BUN Creatinine Ratio 13.7 (10-20); Calcium 9.8 mg/dl (8.5-10.1); Creatinine Clr Calc Pharmacy 37.7 ml/min; Est GFR (African American) 51.9; Est GFR (Non-African American) 44.8
[2020-01-17] MEDS: VERAPAMIL HCL 120 MG TABCR PO SCH (07:52)
[2020-01-17] MEDS: LOSARTAN POTASSIUM 25 MG TAB PO SCH (07:52)
[2020-01-17] MEDS: FUROSEMIDE 20 MG TAB PO SCH (07:53)
[2020-01-17] MEDS: PANTOprazole 40 MG TAB PO SCH (07:53)
[2020-01-17 07:54] LABS: Estimated Average Glucose 117 mg/dl; Hemoglobin A1C 5.7 % (4.5-5.6)
[2020-01-17] MEDS ORDERED: MAGNESIUM OXIDE 400 MG TAB PO SCH (09:00)
[2020-01-17] MEDS ORDERED: MONTELUKAST SODIUM 10 MG TABLET PO SCH (09:00)
[2020-01-17] MEDS ORDERED: ASPIRIN 81 MG ECTAB PO SCH (09:00)
[2020-01-17] MEDS ORDERED: CHOLECALCIFEROL 1,000 UNITS 25 MCG TAB PO SCH (09:00)
[2020-01-17] MEDS ORDERED: CLOPIDOGREL BISULFATE 75 MG TAB PO SCH (09:00)
--- NOTE | 2020-01-17 13:23 | Hospitalist Progress Note ---
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 In ED patient remained hemodynamically stable. Her mental status completely returned to baseline upon my evaluation. CBC, CMP, troponin relatively unremarkable. She underwent chest x-ray which revealed cardiomegaly but no acute cardiopulmonary disease. Head CT was negative for hemorrhage, but did reveal chronic microvascular disease change 2 small enhancing extra-axial lesions, 1.8 cm right anterior temporal fossa and 1.3 cm right frontal convexity which are unchanged to prior exams, likely of present meningiomas. She did receive IVF while in ED." -as per initial neurology evaluation on 01/16/2020, patient had 7 to 8 years ago with very similar symptoms -no acute telemetry events to date -CTA head and neck no significant stenosis or occlusion Possible Meningiomas -Brain MRI "No acute intracranial abnormality, specifically there is no evidence of acute or subacute infarct. Previously described enhancing extra-axial lesi ons suggestive of meningiomas are suboptimally evaluated without the use of IV contrast. The lesion within the right middle cranial fossa appears to have mildly increased in size from the 2016 exam." (2) Dysarthria: suspected dysarthria by history prior to admision 01/17/2020 -Patient speaking in full sentences. no distress. no aphasia. no chest pain. no shortness of breath. no palpitations. review of chart that patient did well with PT/OT. EEG results completed on 01/17/2020 with results pending. Neurology service reports that patient wants to stay overnight. patient has close outpatient follow ups that are upcoming 01/22/2020 11:00 AM Provider Omar Kwan MD Department [facility] 01/30/2020 11:20 AM Provider Yuliana Ruiz PA-C Department Neurology [facility] 01/30/2020 4:00 PM Provider Vinny Vázquez MD Department Cardiology, [facility] 02/25/2020 11:10 AM Provider Sarah Renae DO Department [facility] (3) Hypertension: -blood pressure elevated in ED because she did not take her a.m. lasix, losartan or verapamil -continue current blood pressure medications of Lasix 20 mg, losartan 25 mg daily, verapamil 180 mg daily (4) Diastolic heart failure: -euvolemic on exam on admission, baseline weight is 197 to 200 pounds -echocardiogram with grade 1 diastolic dysfunction, no evidence of of atrial septal defect -on diuretics (5) Hyperlipidemia: is controlled as LDL is 51, continue current statin as crestor 5 mg qhs normal HbA1c, no diabetes (6) CKD (chronic kidney disease), stage III: monitor renal function (7) GERD (gastroesophageal reflux disease): continue PPI (8) DVT prophylaxis: SCD/TEDS for now Admission and Anticipated Discharge Date Admission Date: January 16, 2020 Subjective Patient speaking in full sentences. no distress. no aphasia. no chest pain. no shortness of breath. no palpitations. review of chart that patient did well with PT/OT. EEG results completed on 01/17/2020 with results pending. Neurology service reports that patient wants to stay overnight. Review of Systems Review of Systems: All systems reviewed & are unremarkable except as noted in HPI & below Physical Exam Constitutional: comfortable Eyes: PERRL, conjunctivae normal, anicteric sclerae EOM intact bilaterally ENMT: Ears: + hearing impairment Neck: normal visual inspection Respiratory: normal respiratory effort, lungs clear to auscultation Cardiovascular: Rate/Rhythm: regular rate and regular rhythm Musculoskeletal: Head/Neck/Chest: normocephalic and head atraumatic Neurologic: PERRL, EOMI, accommodation nl, no face palsy, no dysarthria CN's II-XI intact bilaterally Psychiatric: A+Ox3, euthymic affect Results & Data ([facility] [place]) Vital Signs (Past 12 Hours) Vital Signs Temp Pulse Pulse Resp BP BP Pulse Ox 01/17/20 11:40 36.6 C 76 20 132/66 98 01/17/20 08:20 57 L 01/17/20 07:46 36.5 C 69 20 157/81 H 98 01/17/20 04:28 36.5 C 64 19 142/76 H 94 01/17/20 02:02 74
--- NOTE | 2020-01-17 13:59 | Electroencephalogram ---
EEG Procedure Note Date of Service January 17, 2020 Start / End Times Start Time: 07:01 End Time: 07:[address] Fairchild History An 89-year-old woman with transient global amnesia. EEG performed for evaluation of epileptiform activity. Home Medication List Home Medications Medication Instructions Recorded Confirmed Type furosemide 20 mg PO QAM #0 07/29/16 01/16/20 History levothyroxine 50 mcg PO QAM #0 08/19/16 01/16/20 History montelukast 10 mg PO QAM #0 05/30/17 01/16/20 History levalbuterol tartrate 2 inh INHALATION Q6H PRN 01/08/19 01/16/20 History losartan 25 mg PO QAM 01/08/19 01/16/20 History prednisone 10 mg PO DAILY PRN 01/08/19 01/16/20 History verapamil 120 mg PO QAM 01/08/19 01/16/20 History cholecalciferol (vitamin D3) 25 2,000 unit PO QAM cap 08/16/19 01/16/20 History mcg (1,000 unit) capsule magnesium oxide 400 mg (241.3 mg 40 mg PO QAM #90 tab 08/16/19 01/16/20 History magnesium) tablet omeprazole 20 mg capsule,delayed 20 mg PO BID cap 08/16/19 01/16/20 History release aspirin 81 mg PO BID 01/16/20 01/16/20 History rosuvastatin 5 mg PO HS 01/16/20 01/16/20 History Inpatient Medication List Acetaminophen (Tylenol) 650 mg PO Q4H PRN PRN Reason: Pain or Fever Stop: 02/15/20 14:58 Last Admin: 01/17/20 13:48 Dose: 650 mg Documented by: [id number] Admin: 01/17/20 04:29 Dose: 650 mg Documented by: [id number] Aspirin (Ecotrin Ectab) 81 mg PO DAILY [facility] Stop: 02/16/20 08:59 Last Admin: 01/17/20 07:53 Dose: 81 mg Documented by: [id number] Clopidogrel Bisulfate (Plavix) 75 mg PO QAM [facility] Stop: 02/16/20 08:59 Last Admin: 01/17/20 07:53 Dose: 75 mg Documented by: [id number] Furosemide (Lasix) 20 mg PO QAM [facility] Stop: 02/15/20 15:29 Last Admin: 01/17/20 07:53 Dose: 20 mg Documented by: [id number] Admin: 01/16/20 15:37 Dose: 20 mg Documented by: [id number] Levothyroxine Sodium (Synthroid) 50 mcg PO DAILYBB [facility] Stop: 02/16/20 06:29 Last Admin: 01/17/20 06:33 Dose: 50 mcg Documented by: [id number] [facility]artan [facility]) [facility] Stop: 02/15/20 15:29 Last Admin: 01/17/20 07:52 Dose: 25 mg Documented by: [id number] Admin: 01/16/20 15:38 Dose: 25 mg Documented by: [id number] Magnesium Oxide (Mag-Ox) 40 mg PO [facility] Stop: 02/16/20 08:59 Last Admin: 01/17/20 07:53 Dose: 40 mg Documented by: [id number] Montelukast Sodium (Singulair) 10 mg PO [facility] Stop: 02/16/20 08:59 Last Admin: 01/17/20 07:53 Dose: 10 mg Documented by: [id number] Pantoprazole Sodium (Protonix) 40 mg PO BID [facility] Stop: 02/15/20 20:59 Last Admin: 01/17/20 07:53 Dose: 40 mg Documented by: [id number] Admin: 01/16/20 20:28 Dose: 40 mg Documented by: [id number] Rosuvastatin Calcium (Crestor) 5 mg PO HS [facility] Stop: 02/15/20 20:59 Last Admin: 01/16/20 20:28 Dose: 5 mg Documented by: [id number] Verapamil HCl (Calan Sr) 120 mg PO [facility] Stop: 02/15/20 15:29 Last Admin: 01/17/20 07:52 Dose: 120 mg Documented by: [id number] Admin: 01/16/20 15:38 Dose: 120 mg Documented by: [id number] Vitamin D (Vitamin D3) 2,000 units PO [facility] Stop: 02/16/20 08:59 Last Admin: 01/17/20 07:53 Dose: 2,000 units Documented by: [id number] Discontinued Medications Sodium Chloride (Nss 1000ml) 1,000 mls @ 50 mls/hr IV .Q20H [facility] Stop: 02/15/20 09:59 Last Infusion: 01/16/20 15:25 Dose: 0 mls/hr Documented by: [id number] Admin: 01/16/20 10:55 Dose: 50 mls/hr Documented by: [id number] Lorazepam (Ativan) 0.5 mg in 1 mls @ 1 mls/min IV ONE ONE Stop: 01/16/20 16:08 Last Admin: 01/16/20 22:16 Dose: Not Given Documented by: [id number] Lorazepam (Ativan) 0.5 mg in 1 mls @ 1 mls/min IV ONE ONE Stop: 01/16/20 22:16 Last Admin: 01/16/20 22:15 Dose: 1 mls/min Documented by: [id number] Ioversol (Optiray 320 125ml) 118 ml IV ONCE PRN PRN Reason: Interaction Checking Stop: 01/20/20 10:42 Last Admin: 01/16/20 10:46 Dose: 118 ml Documented by: [id number] Description This is a 21 electrode EEG with a single channel dedicated to limited EKG. The electrodes were placed in accordance with the International 10-20 system. REPORT: The onset of the EEG the patient is awake. The posterior dominant rhythm is 10 to 11 Hz. Background is symmetric. Is a normal anterior to posterior gradient with increased beta activity in the frontal head regions. Drowsiness is characterized by increased theta activity, reduced eye blink, and reduce muscle artifact. Photic stimulation does not elicit any abnormalities. Impression: This is a normal awake and drowsy routine EEG. There is no focal slowing or epileptiform discharges recorded.
--- NOTE | 2020-01-17 14:10 | Neurology Progress Note ---
Date of Service January 17, 2020 Assessment & Plan (1) Transient confusion: 1. 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 CTA head and neck no significant stenosis or occlusion 3. CT head- no acute findings 4. MRI brain no acute findings 5. TTE- no ASD 6. continue aspirin 81 mg and add plavix 75 mg x 21 days then plavix for life 7. PT/OT no discharge needs at this time 8. optimize HTN, HLD LDL < 70 consider patient age 9. EEG normal ok from neurology stand point for discharge- follow up neurology 4-6 week after discharge Yuliana Ruiz [facility] (2) TIA (transient ischemic attack): Admission and Anticipated Discharge Date Admission Date: January 16, 2020 Supervising Physician Co-Signing Physician Notes Patient was seen and examined. An 89 year old woman admitted with possible TGA. Back to baseline. Awake and alert. Oriented to place and time. Routine EEG normal. MRI brain Negative for ischemic stroke. 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 She called her daughter and she said her mother called her around 8a and was confused regarding where she was. She kept repeating the same thing so she called 911 and she was able to talk to her to get on the chair lift go down stairs and open the door. She does not recall any events that occurred from then until when she was in the ambulance. She vaguely remembers being tended to and EMS but kept asking how she got the the ED. Until in her ED room which would have been several hours she was then aware of where she was and remembers the CT scan being done She does admit to mild right-sided frontal headache 2/10 which is not unusual for her. She does have a chronic dry cough. She does have mild lower extremity swelling for which she takes Lasix for. No recent significant stressors in life. She had an episode of transient global amnesia 7-8 years ago post traumatic event. She is currently feeling back to her baseline accept for a slight headache across her forehead and feels exhausted but she was unable to sleep last night. denies CP, SOB, abdominal pain, one sided weakness, numbness tingling, N, V. Physical Exam Physical Exam: Gen: alert NAD CV RRR lungs CTA strength biceps triceps hand emergency management director 5/5 bilaterally hip flex right 4+/5, left 5/5 smile eye brow raise symmetric speech no slurred speech no pronator drift Results & Data ([facility]) Vital Signs (Past 12 Hours) Vital Signs Temp Pulse Pulse Resp BP BP Pulse Ox 01/17/20 11:40 36.6 C 76 20 132/66 98 01/17/20 08:20 57 L 01/17/20 07:46 36.5 C 69 20 157/81 H 98 01/17/20 04:28 36.5 C 64 19 142/76 H 94 Laboratory Results Abnormal lab results 01/17/20 01/17/20 01/17/20 Range/Units 06:23 06:23 06:23 RBC 3.98 L (4.2-5.4) M/uL [place] # (Auto) 0.60 H (0.11-0.59) K/uL Chloride 110 H (98-107) mmol/L Hemoglobin A1c 5.7 H (4.5-5.6) % Diagnostic Findings EEG- his is a normal awake and drowsy routine EEG. There is no focal slowing or epileptiform discharges recorded. TTE- 55-60% EF no ASD MRI brain -. No acute intracranial abnormality, specifically there is no evidence of acute or subacute infarct. Previously described enhancing extra- axial lesions suggestive of meningiomas are suboptimally evaluated without the use of IV contrast. The lesion within the right middle cranial fossa appears to have mildly increased in size from the 2016 exam.
--- NOTE | 2020-01-17 14:57 | Discharge Summary ---
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 Her last known time well according to patient was approximately 8 AM. She said she woke up and was heading downstairs in her lift chair which is her normal routine. Last time she can recall was approximately 8 AM. She does not recall any events that occurred from then until when she was in the ambulance. She vaguely remembers being tended to and EMS but did not totally return to normal consciousness until in her ED room. According to report patient I called daughter and when she was noted to be dysarthric and confused therefore EMS was called. Per EMS report her symptoms were starting to improve when they saw her and continued to improve in route to ED. She denies any loss of bowel or bladder incontinence or generalized weakness. She denies any recent illness. She does admit to mild right-sided frontal headache 2/10 which is not unusual for her. She denies any dizziness, lightheadedness, visual changes, hearing changes, chest pain, shortness, palpitations, nausea, vomiting, diarrhea, dysuria, increased urgency or frequency with urination, melena, hematochezia. She does have a chronic dry cough. She took her levothyroxine this a.m. but no other a.m. medications. Appetite has been normal. She weighs her self daily and recalls weighing herself this morning but does not recall weight. Her weight fluctuates between 197 and 200. She does have mild lower extremity swelling for which she takes Lasix for. No recent significant stressors in life. 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 In ED patient remained hemodynamically stable. Her mental status completely returned to baseline upon my evaluation. CBC, CMP, troponin relatively unremarkable. She underwent chest x-ray which revealed cardiomegaly but no acute cardiopulmonary disease. Head CT was negative for hemorrhage, but did reveal chronic microvascular disease change 2 small enhancing extra-axial lesions, 1.8 cm right anterior temporal fossa and 1.3 cm right frontal convexity which are unchanged to prior exams, likely of present meningiomas. She did receive IVF while in ED. Admission Exam Per Admitting Provider Constitutional: WD/WN, vitals as above, NAD, sitting up in bed, pleasant, conversing easily Head: Normocephalic, Atraumatic Eyes: PERRL, conjunctivae normal, anicteric sclerae ENMT: external ear and nose normal, oropharynx normal, few absent teeth Neck: trachea midline, no thyromegaly normal visual inspection Respiratory: normal respiratory effort, lungs clear to auscultation, no wheeze, rales, rhonchi. Normal insp/exp effort, no accessory muscle use Cardiovascular: RRR, no murmur, no edema Vessels: no JVD or carotid bruit Chest: normal inspection of chest Abdomen: obese, normal bowel sounds, soft, nontender, no hepatosplenomegaly Musculoskeletal: no cyanosis or clubbing, extremities motor strength 5/5 Skin: no rashes, warm and dry normal turgor Neurologic: PERRL, EOMI, accommodation nl, no face palsy, no dysarthria CN's II-XI intact bilaterally and moves all extremities Psychiatric: A+Ox3, euthymic affect Lymphatic: no cervical or axillary lymphadenopathy : deferred Principal Diagnosis Transient Global Amnesia leading to transient confusion suspected dysarthria by history prior to admission Possible Meningiomas Hypertension Diastolic heart failure (chronic) Discharge Exam Constitutional comfortable Eyes PERRL, conjunctivae normal, anicteric sclerae EOM intact bilaterally ENMT external ear and nose normal, oropharynx normal Neck normal visual inspection Respiratory normal respiratory effort, lungs clear to auscultation Cardiovascular Rate/Rhythm: regular rate and regular rhythm Chest (Breasts) Chest: normal inspection of chest Gastrointestinal (Abdomen) normal bowel sounds, soft, nontender, no hepatosplenomegaly Musculoskeletal Head/Neck/Chest: normocephalic and head atraumatic Neurologic PERRL, EOMI, accommodation nl, no face palsy, no dysarthria CN's II-XI intact bilaterally Psychiatric A+Ox3, euthymic affect Discharge Data Allergies Allergy/AdvReac Type Severity Reaction Status Date / Time No Known Allergies Allergy Verified 01/31/19 08:41 Consultations 01/16/20 12:39 ED Decision to Admit Stat 01/16/20 12:51 Consult Neurology Routine 01/16/20 14:59 Consult Case Management - Discharge Planning Routine Ordered Studies 01/16/20 09:54 CT head/brain wo con Stat 01/16/20 09:55 CT angio head w con Stat CT angio neck with con Stat 01/16/20 13:36 MR brain wo con Routine Hospital Course (1) Transient confusion: Transient Global Amnesia -as per admission H and P :"This is an 89 yr old F who has a significant PMH of HTN, diastolic CHF, hypothyroidism, hyperparathyroidism, CKD stage III, history meningioma, 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 In ED patient remained hemodynamically stable. Her mental status completely returned to baseline upon my evaluation. CBC, CMP, troponin relatively unremarkable. She underwent chest x-ray which revealed cardiomegaly but no acute cardiopulmonary disease. Head CT was negative for hemorrhage, but did reveal chronic microvascular disease change 2 small enhancing extra-axial lesions, 1.8 cm right anterior temp oral fossa and 1.3 cm right frontal convexity which are unchanged to prior exams, likely of present meningiomas. She did receive IVF while in ED." -as per initial neurology evaluation on 01/16/2020, patient had 7 to 8 years ago with very similar symptoms -no acute telemetry events to date -CTA head and neck no significant stenosis or occlusion Possible Meningiomas -Brain MRI "No acute intracranial abnormality, specifically there is no evidence of acute or subacute infarct. Previously described enhancing extra-axial lesions suggestive of meningiomas are suboptimally evaluated without the use of IV contrast. The lesion within the right middle cranial fossa appears to have mildly increased in size from the 2016 exam." (2) Dysarthria: suspected dysarthria by history prior to admission 01/17/2020 -Patient speaking in full sentences. no distress. no aphasia. no chest pain. no shortness of breath. no palpitations. review of chart that patient did well with PT/OT. EEG results completed on 01/17/2020 and is a normal awake and drowsy routine EEG. There is no focal slowing or epileptiform discharges recorded spoke with neurology Dr. Kennedy and he confirmed that the diagnosis is Transient Global amnesia and not a transient ischemic attack (TIA) so there is no role for dual anti-platelets. Patient also no wishes to be discharged to home under care of her family patient has close outpatient follow ups that are upcoming 01/22/2020 11:00 AM Provider Omar Kwan MD Department [facility] 01/30/2020 11:20 AM Provider Yuliana Ruiz PA-C Department Neurology [facility] 01/30/2020 4:00 PM Provider Vinny Vázquez MD Department Cardiology, [facility] 02/25/2020 11:10 AM Provider Sarah Renae DO Department [facility] (3) Hypertension: -blood pressure elevated in ED because she did not take her a.m. lasix, losartan or verapamil -continue current blood pressure medications of Lasix 20 mg, losartan 25 mg daily, verapamil 180 mg daily (4) Diastolic heart failure: Diastolic heart failure (chronic) -euvolemic on exam on admission, baseline weight is 197 to 200 pounds -echocardiogram with grade 1 diastolic dysfunction, no evidence of of atrial septal defect -on diuretics (5) Hyperlipidemia: is controlled as LDL is 51, continue current statin as crestor 5 mg qhs normal HbA1c, no diabetes (6) CKD (chronic kidney disease), stage III: monitor renal function (7) GERD (gastroesophageal reflux disease): continue PPI (8) DVT prophylaxis: SCD/TEDS for now Total Time Total Time Spent Total Time Spent (In Minutes): 40 minutes Total Time Includes: Examination of the Patient, Discharge Planning, Medication Reconciliation and Communication With Other Providers Discharge Plan Discharge Items Patient Disposition: Home - Self-Care Reason For Visit: TIA SX,CONFUSION Discharge Diagnosis: Transient Global Amnesia leading to transient confusion suspected dysarthria by history prior to admision Possible Meningiomas Hypertension Diastolic heart failure (chronic) Condition on Discharge: Good Activity: Per Instructions section Non-emergency contact: Primary Care Provider and Neurologist Call non-emergency contact if: you have any medication questions Follow-up/Referrals: Aime Pena MD [Primary Care Provider] - Diet: Heart Healthy and Low Sodium (2gm) Addtl Attending Provider Instructions: patient has close outpatient follow ups that are upcoming 01/22/2020 11:00 AM Provider Omar Kwan MD Department [facility] 01/30/2020 11:20 AM Provider Yuliana Ruiz PA-C Department Neurology [facility] 01/30/2020 4:00 PM Provider Vinny Vázquez MD Department Cardiology, [facility] 02/25/2020 11:10 AM Provider Sarah Renae DO Department Family Practice [facility] Iuss Master Analyst Provider Instructions: Brain MRI "No acute intracranial abnormality, specifically there is no evidence of acute or subacute infarct. Previously described enhancing extra-axial lesions suggestive of meningiomas are suboptimally evaluated without the use of IV contrast. The lesion within the right middle cranial fossa appears to have mildly increased in size from the 2016 exam Pending Studies at Discharge: No Stand-Alone Forms: My [facility], Smoking Cessation Medications and DC Order Prescriptions: Continued furosemide 20 mg Tablet 20 mg PO QAM Qty: 0 RF: 0 levothyroxine 50 mcg Tablet 50 mcg PO QAM Qty: 0 RF: 0 montelukast 10 mg Tablet 10 mg PO QAM Qty: 0 RF: 0 cholecalciferol (vitamin D3) 1,000 unit capsule 2,000 unit PO QAM RF: 0 omeprazole 20 mg capsule,delayed release(DR/EC) 20 mg PO BID RF: 0 magnesium oxide 400 mg (241.3 mg magnesium) tablet 40 mg PO QAM Qty: 90 RF: 0 verapamil 120 mg Tablet Extended Release 120 mg PO QAM RF: 0 prednisone 10 mg Tablet 10 mg PO DAILY PRN (Reason: BRONCHITIS) RF: 0 losartan 25 mg Tablet 25 mg PO QAM RF: 0 levalbuterol tartrate 45 mcg/actuation Hfa Aerosol Inhaler 2 inh INHALATION Q6H PRN (Reason: Shortness Of Breath) RF: 0 aspirin 81 mg Tablet,Delayed Release (Dr/Ec) 81 mg PO BID RF: 0 rosuvastatin 5 mg tablet 5 mg PO HS RF: 0 Discharge Orders: Discharge Order (Routine); Ordered 01/17/20 Ordered By: David Kaiser Admission Data Admit Date/Time: 01/16/20 12:51 Attending Provider: David Kaiser Admit Provider: Dimple Frank Primary Care Provider: Aime Pena Other Providers: Ranjeet Fairchild ; Dimple Frank
== END 2020-01-17 17:40 | disposition home or self-care (01) ==
LOC: 2N 09:40 → ED 09:40 → SUATTDRO 12:51 → 2N 13:50

== ENCOUNTER 2021-09-01 21:36 | Observation (INO) ==
[2021-09-01] MEDS ORDERED: dexAMETHasone**PF** 10 MG/ML VIAL IV ONE (22:52)
[2021-09-01] MEDS ORDERED: LORazepam 0.25 MG/0.5 ML VIAL IV STA (22:52)
[2021-09-01] MEDS ORDERED: ACETAMINOPHEN 1,000 MG/100 ML VIAL IV STA (22:52)
[2021-09-01] MEDS ORDERED: SODIUM CHLORIDE 0.9% 500 ML IV STA (22:52)
[2021-09-01] MEDS ORDERED: DICLOFENAC SOD 1% GEL 100 GM TUBE EXT STA (22:56)
[2021-09-01 23:58] LABS: Albumin Level 3.8 gm/dl (3.4-5.0); BUN Creatinine Ratio 12.6 (10-20); Calcium 9.9 mg/dl (8.5-10.1); Creatinine Clr Calc Pharmacy 41.9 ml/min; Est GFR (African American) 48.9 ml/min; Est GFR (Non-African American) 42.2 ml/min; Magnesium 2.2 mg/dl (1.8-2.4); Potassium 4.2 mmol/L (3.5-5.1)
[2021-09-02 00:01] LABS: Albumin Globulin Ratio 1.1 (0.9-2); Bilirubin,Total 0.3 mg/dl (0.2-1); Globulin 3.4 gm/dl (2.5-4.0); Phosphorus 2.9 mg/dl (2.5-4.9); Total Protein 7.2 gm/dl (6.4-8.2)
[2021-09-02] MEDS ORDERED: traMADol HCL 50 MG TABLET PO PRN (00:23)
[2021-09-02] MEDS ORDERED: IBUPROFEN 200 MG TAB PO PRN (00:24)
--- NOTE | 2021-09-02 00:44 | Emergency Department Note ---
Impression & Plan Acute exacerbation of chronic low back pain, Intractable low back pain, Ambulatory dysfunction ED Provider Note NAME: JEY BUCKNER AGE: 89 SEX: F ARRIVES VIA: Ambulance INFORMANT: Patient, ED PROVIDER(S): Tommie Ludwig MD CHIEF COMPLAINT: Lumbar pain. PLAN: Disposition: Admit MEDICAL DECISION MAKING: The patient is a pleasant 89-year-old woman with a past medical history of lumbar stenosis, history of lumbar decompression, CKD, hyperparathyroidism, GERD who presents to the emergency department valuation of acute flare of her lumbar pain has been ongoing for the past 4 days where she feels it has progressively worsened where she is unable to walk where she lives at home by herself. She does not recall any awkward movements or twisting that precipitated her symptoms. She denies any loss of bowel control or urinary retention. She has any recent fevers, chills, cough, congestion, GI or symptoms. On arrival the patient is uncomfortable but in no acute distress, afebrile stable abscess. She has mild tenderness of the right lower lumbar region extending distally in the sciatic distribution. She has normal strength in bilateral lower extremities. There is no clonus. Reflexes within normal limits. WBC, H/H, platelets wnl. Chemistry without acidosis. Electrolytes unremarkable. LFTs without significant abnormality. UA without convincing evidence of infection. Covid-19 PCR negative. Upon evaluation patient did feel improved after IV fluid hydration, APAP, dexamethasone and low-dose Ativan. However she still reported that she would have flares of pain with minimal movement in the bed. She did feel that she did not could not safely go home at this time given she lives by herself and has had difficulty walking. Thus, we will proceed with admission for further management and likely PT, OT and possible placement. Case was discussed with Dr. Queen, [facility] hospitalist, who will evaluate the patient for admission. Triage Nursing notes reviewed and agree them. Prior medical records reviewed Vital Signs: reviewed and remarkable for no significant abnormalities Differential diagnosis: Musculoskeletal, disc herniation, fracture, metastatic disease, cord compression, discitis, sciatica, cauda equina, infection, aortic disease, renal colic, gastrointestinal, as well as other pathologies. ER treatment provided: See below. Diagnostics interpreted by me: Cardiac Monitoring: An order for continuous cardiac monitoring was placed and demonstrated NSR, 73 bpm, no ectopy. Laboratory studies: See below Imaging studies: See below Consultation(s): Case was discussed with Dr. Queen, [facility] hospitalist, who will evaluate the patient for admission. HPI: The patient is a pleasant 89-year-old woman with a past medical history of lumbar stenosis, history of lumbar decompression, CKD, hyperparathyroidism, GERD who presents to the emergency department valuation of acute flare of her lumbar pain has been ongoing for the past 4 days where she feels it has progressively worsened where she is unable to walk where she lives at home by herself. She does not recall any awkward movements or twisting that precipitated her symptoms. She denies any loss of bowel control or urinary retention. She has any recent fevers, chills, cough, congestion, GI or symptoms. ROS: See above HPI for pertinent positives & negatives. A total of 10 systems reviewed and were otherwise negative. PAST MEDICAL HISTORY:See Below PAST SURGICAL HISTORY:See Below FAMILY HISTORY:See Below SOCIAL HISTORY:See Below HOME MEDICATIONS:See Below ALLERGIES:See Below VITALS:See Below PHYSICAL EXAMINATION: GENERAL: Awake, alert, uncomfortable-appearing, in no distress HENT: Normocephalic, atraumatic. Oropharynx with dry mucous membranes and otherwise unremarkable. EYES: Normal conjunctiva. Sclera non-icteric. NECK: Supple. No nuchal rigidity. FROM. No JVD. RESPIRATORY: Clear to auscultation. CARDIAC: Regular rate, normal rhythm. Extremities warm and well perfused. Pulses equal. ABDOMEN: Soft, non-distended. No tenderness to palpation. No rebound or guarding. No masses. RECTAL: Deferred. MUSCULOSKELETAL: Chest examination reveals no tenderness. The back is symmetrical on inspection without obvious abnormality. There is no CVA te nderness to palpation. No joint edema. Mild tenderness of the right lower lumbar region extending distally in the sciatic distribution. LOWER EXTREMITIES: Calves are equal size bilaterally and non-tender. No edema. No discoloration. 5/5 strength and SILT x 4 extremities. No clonus. Reflexes within normal limits. NEURO: Normal sensorium. No sensory or motor deficits noted. SKIN: No rash or jaundice noted. Tommie Ludwig MD Past Med/Surg History Medical History (Updated 09/02/21 @ 05:45 by Tommie Ludwig MD) Bronchitis MOST RECENT FALL 2017; HAS RESCUE KIT TO USE PRN Cancer SKIN Chronic back pain CKD (chronic kidney disease), stage III CVA (cerebral vascular accident) ? CVA VS. TIA 2+ YEARS AGO= ON ASA GERD (gastroesophageal reflux disease) CONTROLLED Heart palpitations History of blood transfusion 2013 POST OP BACK SURGERY Hyperlipidemia Hyperparathyroidism Hypertension Hypothyroidism Obesity Osteoporosis Surgical History History of cardiac cath 2007= NO STENTS; "NORMAL CORONARIES" History of carpal tunnel release BILATERAL History of cataract surgery BILATERAL History of esophagogastroduodenoscopy (EGD) History of lumbar surgery DISCECTOMY/FUSION History of open reduction and internal fixation (ORIF) procedure LEFT ANKLE Hx of appendectomy Hx of cervical spine surgery DISCECTOMY Hx of colonoscopy S/P hardware removal LEFT ANKLE Family History Mother FHx: bladder cancer Father Family history of esophageal cancer Social History Smoking Status: Never smoker Second Hand Exposure: No; Hx Alcohol Use: No Hx Substance Use: No Preferred Language: Polish Communication Ability: Effective Ironer Required: No Beliefs That Will Affect Care: None Current Living Situation: Alone Current Living Situation Comment: lives with Mirella Other Information That Helps Us Care for You: No Feels Safe at Home: Yes Safety Concerns: Feels Safe At This Time Assistive Devices: Glasses Allergies Allergies Allergy/AdvReac Type Severity Reaction Status Date / Time No Known Allergies Allergy Verified 09/01/21 22:21 Home Meds Home Medications Medication Instructions Recorded Confirmed furosemide 20 mg tablet 20 mg PO QAM #0 07/29/16 09/01/21 levothyroxine 50 mcg tablet 50 mcg PO QAM #0 08/19/16 09/01/21 montelukast 10 mg tablet 10 mg PO QAM #0 05/30/17 09/01/21 levalbuterol tartrate 45 2 inh INHALATION Q6H PRN 01/08/19 09/01/21 mcg/actuation aerosol inhaler losartan 25 mg tablet 25 mg PO QAM 01/08/19 09/01/21 prednisone 10 mg tablet 10 mg PO DAILY PRN 01/08/19 09/01/21 verapamil 120 mg tablet,extended 120 mg PO QAM 01/08/19 09/01/21 release cholecalciferol (vitamin D3) 25 2,000 unit PO Q OTHER DAY cap 08/16/19 09/01/21 mcg (1,000 unit) capsule magnesium oxide 400 mg (241.3 mg 400 mg PO QAM #90 tab 08/16/19 09/01/21 magnesium) tablet omeprazole 20 mg capsule,delayed 20 mg PO BID cap 08/16/19 09/01/21 release aspirin 81 mg tablet,delayed 81 mg PO BID 01/16/20 09/01/21 release rosuvastatin 5 mg tablet 5 mg PO HS 01/16/20 09/01/21 acetaminophen 500 mg tablet 500 - 1,000 mg PO Q6H PRN 09/01/21 09/01/21 (Tylenol Extra Strength) cinacalcet 30 mg tablet 30 mg PO 3XWK 09/01/21 09/01/21 Results & Data (ED) Vital Signs Vital Signs - 24 hr 09/01/21 21:51 09/01/21 21:57 09/01/21 23:00 Temperature 36.8 C Temperature Source Oral Pulse Rate 90 Pulse Rate [Right Finger] 73 Pulse Rate from SpO2 Sensor 90 Pulse Rhythm [Right Finger] Regular Respiratory Rate 18 20 Respiratory Depth Normal Blood Pressure Blood Pressure [Left Radial Artery] 147/104 H Blood Pressure Mean Blood Pressure Mean [Left Radial Artery] 118 Pulse Oximetry 98 98 Oxygen Delivery Method Room Air Sepsis Recent Fever Within 48 Hours No Sepsis New/Unexplained Change in Mental Status No Sepsis Action Taken by Nursing No Action Required 09/01/21 23:30 09/01/21 23:32 09/02/21 00:00 Temperature Temperature Source Pulse Rate 67 71 69 Pulse Rate [Right Finger] Pulse Rate from SpO2 Sensor 69 Pulse Rhythm [Right Finger] Respiratory Rate 21 17 Respiratory Depth Blood Pressure 134/61 Blood Pressure [Left Radial Artery] Blood Pressure Mean 85 Blood Pressure Mean [Left Radial Artery] Pulse Oximetry 100 99 Oxygen Delivery Method Room Air Sepsis Recent Fever Within 48 Hours Sepsis New/Unexplained Change in Mental Status Sepsis Action Taken by Nursing 09/02/21 00:30 09/02/21 01:30 09/02/21 02:00 Temperature Temperature Source Pulse Rate 69 71 74 Pulse Rate [Right Finger] Pulse Rate from SpO2 Sensor 79 72 Pulse Rhythm [Right Finger] Respiratory Rate 20 21 18 Respiratory Depth Blood Pressure 129/63 148/76 H 142/78 H Blood Pressure [Left Radial Artery] Blood Pressure Mean 85 100 99 Blood Pressure Mean [Left Radial Artery] Pulse Oximetry 96 94 Oxygen Delivery Method Sepsis Recent Fever Within 48 Hours Sepsis New/Unexplained Change in Mental Status Sepsis Action Taken by Nursing Laboratory Data Attestation: I reviewed the patient's lab results. Result diagrams: 09/01/21 23:18 09/01/21 23:18 Lab Results 09/01/21 09/01/21 09/01/21 Range/Units 23:18 23:18 23:35 WBC 10.22 (4.8-10.8) K/uL RBC 4.37 (4.2-5.4) M/uL Hgb 13.6 (12.0-16.0) g/dL Hct 41.5 (37-47) % MCV 95.0 (80-100) fL MCH 31.1 (25-34) pg MCHC 32.8 (32-36) g/dL RDW Std Deviation 46.7 H (36.4-46.3) fL RDW Coeff of Vivienne 13.4 (11.5-14.5) % Plt Count 233 (130-400) K/uL MPV 11.1 H (7.4-10.4) fL Immature Gran % (Auto) 0.3 % Neut % (Auto) 72.4 % Lymph % (Auto) 19.3 % Floyd % (Auto) 7.4 % Eos % (Auto) 0.5 % Baso % (Auto) 0.1 % Neut # (Auto) 7.40 H (1.4-6.5) K/uL Lymph # (Auto) 1.97 (1.2-3.4) K/uL Floyd # (Auto) 0.76 H (0.11-0.59) K/uL Eos # (Auto) 0.05 (0-0.5) K/uL Baso # (Auto) 0.01 (0-0.2) K/uL Immature Gran # (Auto) 0.03 H (0.00-0.02) K/uL Sodium 140 (136-145) mmol/L Potassium 4.2 (3.5-5.1) mmol/L Chloride 107 (98-107) mmol/L Carbon Dioxide 28 (21-32) mmol/L Anion Gap 5.0 (3-11) BUN 15 (7-18) mg/dl Creatinine 1.15 (0.6-1.2) mg/dl Est Cr Clr Drug Dosing 41.9 ml/min Est GFR ( Amer) 48.9 ml/min Est GFR (Non-Af Amer) 42.2 ml/min BUN/Creatinine Ratio 12.6 (10-20) Glucose 107 H (70-99) mg/dl Calcium 9.9 (8.5-10.1) mg/dl Phosphorus 2.9 (2.5-4.9) mg/dl Magnesium 2.2 (1.8-2.4) mg/dl Total Bilirubin 0.3 (0.2-1) mg/dl AST 18 (15-37) U/L ALT 18 (12-78) U/L Alkaline Phosphatase 89 (45-117) U/L Total Protein 7.2 (6.4-8.2) gm/dl Albumin 3.8 (3.4-5.0) gm/dl Globulin 3.4 (2.5-4.0) gm/dl Albumin/Globulin Ratio 1.1 (0.9-2) Urine Color Urine Appearance (Clear) Urine pH (4.5-7.5) Ur Specific [place] (1.000-1.030) Urine Protein (Negative) Urine Glucose (UA) (Negative) Urine Ketones (Negative) Urine Blood (Negative) Urine Nitrite (Negative) Urine Bilirubin (Negative) Urine Urobilinogen (Negative) Ur Leukocyte Esterase (Negative) Urine WBC (Auto) (0-5) /hpf Urine RBC (Auto) (0-4) /hpf U Hyaline Cast (Auto) (0-5) /lpf U Epithel Cells (Auto) (0-5) /lpf Urine Bacteria (Auto) (Negative) COVID-19 Eval Order Covid19 at [facility] SARS-CoV-2 (PCR) (Negative) 09/01/21 09/02/21 Range/Units 23:35 01:08 WBC (4.8-10.8) K/uL RBC (4.2-5.4) M/uL Hgb (12.0-16.0) g/dL Hct (37-47) % MCV (80-100) fL MCH (25-34) pg MCHC (32-36) g/dL RDW Std Deviation (36.4-46.3) fL RDW Coeff of Vivienne (11.5-14.5) % Plt Count (130-400) K/uL MPV (7.4-10.4) fL Immature Gran % (Auto) % Neut % (Auto) % Lymph % (Auto) % [place] % (Auto) % Eos % (Auto) % Baso % (Auto) % Neut # (Auto) (1.4-6.5) K/uL Lymph # (Auto) (1.2-3.4) K/uL [place] # (Auto) (0.11-0.59) K/uL Eos # (Auto) (0-0.5) K/uL Baso # (Auto) (0-0.2) K/uL Immature Gran # (Auto) (0.00-0.02) K/uL Sodium (136-145) mmol/L Potassium (3.5-5.1) mmol/L Chloride (98-107) mmol/L Carbon Dioxide (21-32) mmol/L Anion Gap (3-11) BUN (7-18) mg/dl Creatinine (0.6-1.2) mg/dl Est Cr Clr Drug Dosing ml/min Est GFR ( Amer) ml/min Est GFR (Non-Af Amer) ml/min BUN/Creatinine Ratio (10-20) Glucose (70-99) mg/dl Calcium (8.5-10.1) mg/dl Phosphorus (2.5-4.9) mg/dl Magnesium (1.8-2.4) mg/dl Total Bilirubin (0.2-1) mg/dl AST (15-37) U/L ALT (12-78) U/L Alkaline Phosphatase (45-117) U/L Total Protein (6.4-8.2) gm/dl Albumin (3.4-5.0) gm/dl Globulin (2.5-4.0) gm/dl Albumin/Globulin Ratio (0.9-2) Urine Color Yellow Urine Appearance Clear (Clear) Urine pH 5.5 (4.5-7.5) Ur Specific [place] 1.015 (1.000-1.030) Urine Protein Negative (Negative) Urine Glucose (UA) Negative (Negative) Urine Ketones Negative (Negative) Urine Blood 1+ H (Negative) Urine Nitrite Negative (Negative) Urine Bilirubin Negative (Negative) Urine Urobilinogen Negative (Negative) Ur Leukocyte Esterase 2+ H (Negative) Urine WBC (Auto) 5-10 H (0-5) /hpf Urine RBC (Auto) 5-10 H (0-4) /hpf U Hyaline Cast (Auto) 0 (0-5) /lpf U Epithel Cells (Auto) >30 H (0-5) /lpf Urine Bacteria (Auto) Negative (Negative) COVID-19 Eval Order SARS-CoV-2 (PCR) NEGATIVE (Negative) Administered Medications Acetaminophen (Acetaminophen 325 Mg Tab) 650 mg PO Q6H PRN PRN Reason: Fever/pain Stop: 10/02/21 00:23 Last Admin: 09/02/21 04:48 Dose: 650 mg Documented by: [id number] Discontinued Medications Dexamethasone Sodium Phosphate (DexamethasonePf 10 Mg/Ml Vial) 10 mg IV NOW ONE Stop: 09/01/21 22:53 Last Admin: 09/01/21 23:27 Dose: 10 mg Documented by: [id number] Diclofenac Sodium (Diclofenac Sod 1% Gel 100 Gm Tube) 2 gm EXT NOW STA Stop: 09/01/21 22:57 Last Admin: 09/01/21 23:31 Dose: 2 gm Documented by: [id number] Sodium Chloride (Nss) 500 mls @ 999 mls/hr IV .Q31M STA Stop: 09/01/21 23:22 Last Infusion: 09/02/21 00:26 Dose: 0 mls/hr Documented by: [id number] Admin: 09/01/21 23:26 Dose: 999 mls/hr Documented by: [id number] Acetaminophen (Ofirmev) 1,000 mg in 100 mls @ 400 mls/hr IV NOW STA Stop: 09/01/21 23:06 Last Infusion: 09/01/21 23:41 Dose: 0 mls/hr Documented by: [id number] Admin: 09/01/21 23:26 Dose: 400 mls/hr Documented by: [id number] Lorazepam (Ativan) 0.25 mg in 0.5 mls @ 0.5 mls/min IV NOW STA Stop: 09/01/21 22:53 Last Admin: 09/01/21 23:31 Dose: 0.5 mls/min Documented by: [id number] Lidocaine (Lidocaine 5% 1 Patch) 1 patch TD ONE STA Stop: 09/02/21 00:53 Last Admin: 09/02/21 01:07 Dose: 1 patch Documented by: [id number] Discharge Plan Visit Data Chief Complaint: Back Injury/Pain ED Provider: Tommie Ludwig Discharge Problem: Acute exacerbation of chronic low back pain, Intractable low back pain, Am bulatory dysfunction Patient Disposition: Admitted As Inpatient Discharge Instructions Interventions: ED Discharge Assessment Last Done: 09/02/21 04:02
[2021-09-02] MEDS ORDERED: LIDOCAINE 5% 1 PATCH TD STA (00:52)
--- NOTE | 2021-09-02 01:52 | History & Physical Report ---
Date of Service September 02, 2021 Assessment & Plan (1) Acute exacerbation of chronic low back pain: Plan: Lumbar radiculopathy History chronic back pain status post multiple surgeries chronic diastolic heart failure (EF 55 to 60%, TTE 2019), patient euvolemic hypertension, slightly elevated secondary discomfort hypothyroidism, euthyroid as of recent outpatient TSH Hyperglycemia likely prediabetes, hemoglobin A1c of 5.18 January 2020 OBS GMF Analgesia, Lidoderm patch trial Consider Pain Management consultation if unresponsive to initial intervention PT OT eval DVT prophylaxis. SCDs Re: Possible procedure Full code Text document was generated using Vertishear recognition software. It may contain grammatical or spelling errors. Kindly contact undersigned for clarification of any documentation item in question. History of Present Illness Chief Complaint: Back pain Primary Care Provider: Sarah Renae DO History obtained from patient and records. Medical history significant for chronic diastolic heart failure (EF 55 to 60%, TTE 2019), hypertension, history of ventricular ectopy, meningioma of the brain, hypothyroidism, chronic back pain status post multiple surgeries. 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 4 days ago, patient noted worsening of chronic low back pain with radiation to the right lower extremity. Muscle spasms troubling as per patient. No unusual weakness, numbness, fever, chills. No incontinence symptoms. Patient does not recall any trauma or unusual twisting. No chest pain, no S OB. Intractable discomfort at the ER. 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 Allergies Allergy/AdvReac Type Severity Reaction Status Date / Time No Known Allergies Allergy Verified 09/01/21 22:21 Home Medications Medication Instructions Recorded Confirmed Type furosemide 20 mg tablet 20 mg PO QAM #0 07/29/16 09/01/21 History levothyroxine 50 mcg tablet 50 mcg PO QAM #0 08/19/16 09/01/21 History montelukast 10 mg tablet 10 mg PO QAM #0 05/30/17 09/01/21 History levalbuterol tartrate 45 2 inh INHALATION Q6H PRN 01/08/19 09/01/21 History mcg/actuation aerosol inhaler losartan 25 mg tablet 25 mg PO QAM 01/08/19 09/01/21 History prednisone 10 mg tablet 10 mg PO DAILY PRN 01/08/19 09/01/21 History verapamil 120 mg tablet,extended 120 mg PO QAM 01/08/19 09/01/21 History release cholecalciferol (vitamin D3) 25 2,000 unit PO Q OTHER DAY cap 08/16/19 09/01/21 History mcg (1,000 unit) capsule magnesium oxide 400 mg (241.3 mg 400 mg PO QAM #90 tab 08/16/19 09/01/21 History magnesium) tablet omeprazole 20 mg capsule,delayed 20 mg PO BID cap 08/16/19 09/01/21 History release aspirin 81 mg tablet,delayed 81 mg PO BID 01/16/20 09/01/21 History release rosuvastatin 5 mg tablet 5 mg PO HS 01/16/20 09/01/21 History acetaminophen 500 mg tablet 500 - 1,000 mg PO Q6H PRN 09/01/21 09/01/21 History (Tylenol Extra Strength) cinacalcet 30 mg tablet 30 mg PO 3XWK 09/01/21 09/01/21 History Past Med/Surg History Medical History (Updated 09/02/21 @ 05:45 by Tommie Ludwig MD) Bronchitis MOST RECENT FALL 2017; HAS RESCUE KIT TO USE PRN Cancer SKIN Chronic back pain CKD (chronic kidney disease), stage III CVA (cerebral vascular accident) ? CVA VS. TIA 2+ YEARS AGO= ON ASA GERD (gastroesophageal reflux disease) CONTROLLED Heart palpitations History of blood transfusion 2013 POST OP BACK SURGERY Hyperlipidemia Hyperparathyroidism Hypertension Hypothyroidism Obesity Osteoporosis Surgical History History of cardiac cath 2007= NO STENTS; "NORMAL CORONARIES" History of carpal tunnel release BILATERAL History of cataract surgery BILATERAL History of esophagogastroduodenoscopy (EGD) History of lumbar surgery DISCECTOMY/FUSION History of open reduction and internal fixation (ORIF) procedure LEFT ANKLE Hx of appendectomy Hx of cervical spine surgery DISCECTOMY Hx of colonoscopy S/P hardware removal LEFT ANKLE Family History Mother FHx: bladder cancer Father Family history of esophageal cancer Social History Smoking Status: Never smoker Second Hand Exposure: No; Hx Alcohol Use: No Hx Substance Use: No Preferred Language: Niuean Communication Ability: Effective 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 Resources Training 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 Required: No Beliefs That Will Affect Care: None Current Living Situation: Alone Current Living Situation Comment: lives with Mirella Other Information That Helps Us Care for You: No Feels Safe at Home: Yes Safety Concerns: Feels Safe At This Time Assistive Devices: Walker Review of Systems Review of Systems: As per HPI, all 10 systems reviewed, all other ROS negative Physical Exam Physical Exam: GENERAL: Slightly uncomfortable, obese, pleasant, looks younger than stated age, no respiratory distress SKIN: Normal color, warm HEENT: [place] palpebral conjunctivae, no ptosis, dry buccal mucosa NECK : Supple, short neck, no tenderness CHEST : CTA, no tenderness HEART : RRR, no obvious murmurs ABDOMEN: Some distention, nontender BACK : Low back tenderness, positive SLR right EXTREMITIES : Minimal LE swelling with minimal LE tenderness (L > R) (chronic as per patient), no other conspicuous deformities noted NEUROLOGIC : Coherent, no facial asymmetry, no other gross focality Results & Data Results & Data ([facility]) Vital Signs (Past 12 Hours) Vital Signs Temp Pulse Pulse Resp BP BP Pulse Ox 09/02/21 01:30 71 21 148/76 H 09/02/21 00:30 69 20 129/63 96 09/02/21 00:00 69 17 134/61 99 09/01/21 23:32 71 100 09/01/21 23:30 67 21 09/01/21 23:00 90 20 98 09/01/21 21:51 36.8 C 73 18 147/104 H 98 Laboratory Results Laboratory Results Sodium 140 mmol/L (136-145) 09/01/21 23:18 Potassium 4.2 mmol/L (3.5-5.1) 09/01/21 23:18 Chloride 107 mmol/L (98-107) 09/01/21 23:18 Carbon Dioxide 28 mmol/L (21-32) 09/01/21 23:18 Anion Gap 5.0 (3-11) 09/01/21 23:18 BUN 15 mg/dl (7-18) 09/01/21 23:18 Creatinine 1.15 mg/dl (0.6-1.2) 09/01/21 23:18 Est Cr Clr Drug Dosing 41.9 ml/min 09/01/21 23:18 Est GFR ( Amer) 48.9 ml/min 09/01/21 23:18 Est GFR (Non-Af Amer) 42.2 ml/min 09/01/21 23:18 BUN/Creatinine Ratio 12.6 (10-20) 09/01/21 23:18 Glucose 107 mg/dl (70-99) H 09/01/21 23:18 Calcium 9.9 mg/dl (8.5-10.1) 09/01/21 23:18 Phosphorus 2.9 mg/dl (2.5-4.9) 09/01/21 23:18 Magnesium 2.2 mg/dl (1.8-2.4) 09/01/21 23:18 Total Bilirubin 0.3 mg/dl (0.2-1) 09/01/21 23:18 AST 18 U/L (15-37) 09/01/21 23:18 ALT 18 U/L (12-78) 09/01/21 23:18 Alkaline Phosphatase 89 U/L (45-117) 09/01/21 23:18 Total Protein 7.2 gm/dl (6.4-8.2) 09/01/21 23:18 Albumin 3.8 gm/dl (3.4-5.0) 09/01/21 23:18 Globulin 3.4 gm/dl (2.5-4.0) 09/01/21 23:18 Albumin/Globulin Ratio 1.1 (0.9-2) 09/01/21 23:18 COVID-19 Eval Order Covid19 at [facility] 09/01/21 23:35 SARS-CoV-2 (PCR) NEGATIVE (Negative) 09/01/21 23:35
[2021-09-02 02:00] LABS: Basophils # (auto) 0.01 K/uL (0-0.2); Basophils % (auto) 0.1 %; Eosinophils # (auto) 0.05 K/uL (0-0.5); Eosinophils % (auto) 0.5 %; Hematocrit (blood only) 41.5 % (37-47); Hemoglobin 13.6 g/dL (12.0-16.0); Immature Granulocytes # (auto) 0.03 K/uL (0.00-0.02); Immature Granulocytes % (auto) 0.3 %; Lymphocytes # (auto) 1.97 K/uL (1.2-3.4); Lymphocytes % (auto) 19.3 %; Mean Corpuscular Hemoglobin 31.1 pg (25-34); Mean Corpuscular Hgb Conc 32.8 g/dL (32-36); Mean Platelet Volume 11.1 fL (7.4-10.4); Monocytes # (auto) 0.76 K/uL (0.11-0.59); Monocytes % (auto) 7.4 %; Neutrophils % (auto) 72.4 %; Platelet Count 233 K/uL (130-400); RDW Coefficient of Variation 13.4 % (11.5-14.5); RDW Standard Deviation 46.7 fL (36.4-46.3); Red Blood Count 4.37 M/uL (4.2-5.4); White Blood Count 10.22 K/uL (4.8-10.8)
[2021-09-02 02:23] LABS: Appearance Urine Clear (Clear); Bacteria Urine Automated Negative (Negative); Bilirubin Urine Negative (Negative); Blood Urine 1+ (Negative); Cast Urine Automated 0 /lpf (0-5); Color Urine Yellow; Epithelial Cell Urine Auto >30 /lpf (0-5); Glucose Urine UA Negative (Negative); Ketones Urine Negative (Negative); Leukocyte Esterase Urine 2+ (Negative); Nitrite Urine Negative (Negative); Protein Urine Negative (Negative); Specific Gravity Urine 1.015 (1.000-1.030); Urobilinogen Urine Negative (Negative); pH Urine 5.5 (4.5-7.5)
[2021-09-02] MEDS ORDERED: PROMETHAZINE HCL 12.5 MG in SODIUM CHLORIDE 0.9% 50 ML IV PRN (04:18)
[2021-09-02] MEDS: ACETAMINOPHEN 325 MG TAB PO PRN ×3 (04:48→22:41)
[2021-09-02] MEDS: LEVOTHYROXINE SODIUM 50 MCG TABLET PO SCH (06:16)
[2021-09-02] MEDS ORDERED: LOSARTAN POTASSIUM 25 MG TAB PO SCH (09:00)
[2021-09-02] MEDS: ASPIRIN 81 MG ECTAB PO SCH ×2 (09:10→20:31)
[2021-09-02] MEDS: PANTOprazole 40 MG TAB PO SCH ×2 (09:10→20:31)
[2021-09-02] MEDS: VERAPAMIL HCL 120 MG TABCR PO SCH (09:11)
[2021-09-02] MEDS: MONTELUKAST SODIUM 10 MG TABLET PO SCH (09:11)
--- NOTE | 2021-09-02 10:50 | Hospitalist Progress Note ---
Date of Service September 02, 2021 Assessment & Plan (1) Acute exacerbation of chronic low back pain: Plan: This is an 89yo F with a PMH of chronic back pain status post multiple surgeries, chronic diastolic heart failure, HTN, hypothyroidism and other medical problems listed below who presents with acute flare of back pain over past few days. Has underlying R>L lower extremity paresthesias resulting from previous spinal surgery as well as some L lower back pain. Over the past few days, patient developed R lower back pain acutely. Endorsing difficulty standing and repositioning due to spasm-type pain. Has improved with lidocaine patch and initial PT session this morning. Received 10mg IV Dexamethasone, tylenol, ibuprofen and lidocaine patch since arrival. Tries to limit NSAID use. Lumbar radiculopathy History chronic back pain status post multiple surgeries CT lumbar spine without evidence of acute fracture or traumatic subluxation. 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 Considering steroid taper. Tries to limit NSAID use per PCP. Awaiting reports from PT/OT evaluations Chronic diastolic heart failure (EF 55 to 60%, TTE 2019) Euvolemic. Continue daily lasix, losartan Hypertension Slightly elevated secondary discomfort Continue home anti-hypertensives Hypothyroidism Euthyroid as of recent outpatient TSH Hyperglycemia likely prediabetes, hemoglobin A1c of 5.18 January 2020 DVT Ppx: SCDs currently, plan to start SQ heparin Code status: FULL PCP: Suzanne Renae Dispo: Observation med/surg Patient seen in collaboration with Dr. Nuno. Please see addendum. Admission and Anticipated Discharge Date Admission Date: September 02, 2021 Supervising Physician Co-Signing Physician Notes 89yo F with a PMH of chronic back pain status post 3 lower back and 1 upper back surgery, chronic diastolic heart failure, HTN, hypothyroidism presented 09/01 with acute flare of back pain over past few days. PT/OT has been consulted. Continue to manage pain meds. 09/[address] showed no evidence of acute fracture or traumatic subluxation. 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 Patient reports pain being managed better now. If the pain continues to bother her, will consider about orthopedic evaluation while inpatient. Upon examination: Patient has focal tenderness over lower back with no erythema/wound. Well-healed surgical scar noted over the lower back. 1+ BLE edema. Heart lung and abdominal examination WNL. I have seen and examined the patient and have discussed the case with the provider above. I agree with the assessment and plan as stated. Subjective Seen and examined in 303-1. Lower back pain still present with movement but resolved at rest. Has residual R>L lower extremity paresthesias from previous spinal surgery. Denies any pain in BLE. No fever, chills, lightheadedness, CP, SOB, N/V/D, abdominal pain or dysuria. Review of Systems Review of Systems: At least ten systems reviewed and negative except as noted in the HPI. Physical Exam Physical Exam: Gen: WD/WN, NAD, sitting in bedside chair, A&Ox3 HEENT: Normocephalic, atraumatic, conjunctivae moist, sclerae anicteric, mucous membranes moist Lung: Clear to Auscultation bilaterally, no wheezes/rales/rhonchi Heart: Regular rate, regular rhythm, no murmurs, rubs, or gallops Abdomen: Soft, NT, ND +BS x 4 Extremities: TTP of lumbar spine bilaterally, no deformities noted, no edema Skin: Warm, no rash Results & Data Results & Data ([facility]) Vital Signs (Past 12 Hours) Vital Signs Temp Pulse Pulse Resp BP BP BP 09/02/21 06:56 36.5 C 67 16 154/77 H 09/02/21 04:05 36.5 C 82 18 149/78 H 09/02/21 03:30 74 23 146/79 H 09/02/21 03:00 71 16 141/77 H 09/02/21 02:00 74 18 142/78 H 09/02/21 01:30 71 21 148/76 H 09/02/21 00:30 69 20 129/63 09/02/21 00:00 69 17 134/61 09/01/21 23:32 71 09/01/21 23:30 67 21 09/01/21 23:00 90 20 Pulse Ox 09/02/21 06:56 94 09/02/21 04:05 94 09/02/21 03:30 97 09/02/21 03:00 93 09/02/21 02:00 94 09/02/21 01:30 09/02/21 00:30 96 09/02/21 00:00 99 09/01/21 23:32 100 09/01/21 23:30 09/01/21 23:00 98 Laboratory Results Short CBC 09/01/21 Range/Units 23:18 WBC 10.22 (4.8-10.8) K/uL Hgb 13.6 (12.0-16.0) g/dL Hct 41.5 (37-47) % Plt Count 233 (130-400) K/uL BMP 09/01/21 23:18 Sodium 140 Potassium 4.2 Chloride 107 Carbon Dioxide 28 BUN 15 Creatinine 1.15 Glucose 107 H Calcium 9.9 Liver Function 09/01/21 Range/Units 23:18 Total Bilirubin 0.3 (0.2-1) mg/dl AST 18 (15-37) U/L ALT 18 (12-78) U/L Alkaline Phosphatase 89 (45-117) U/L Albumin 3.8 (3.4-5.0) gm/dl Urine 09/02/21 Range/Units 01:08 Urine Color Yellow Urine Appearance Clear (Clear) Urine pH 5.5 (4.5-7.5) Ur Specific [place] 1.015 (1.000-1.030) Urine Protein Negative (Negative) Urine Glucose (UA) Negative (Negative) Diagnostic Findings Lumbar Spine CT 09/02/21 11:34 CT lumbar spine wo con CLINICAL HISTORY: acute flare back pain TECHNIQUE: Multidetector row helical CT of the lumbar spine was performed without administration of intravenous contrast. Coronal and sagittal reformations were obtained. Automated dose lowering techniques and/or adjustment according to patient size were utilized for this exam. Comparison: Comparison is made to CT lumbar spine 01/08/2019 FINDINGS: For counting purposes, the last complete intervertebral disc space is considered L5-S1. Again noted is posterior stabilization hardware spanning L3 S1. Degenerative changes are noted in the visualized spine. There is grade 1 retrolisthesis of L2-L3 with resulting severe bilateral neural foraminal stenosis. Surrounding soft tissues are unremarkable. IMPRESSION: No evidence of acute fracture or traumatic subluxation. 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 ACT 112: Negative or not required by law. Electronically signed by: Sathya Leonard M.D. 09/02/2021 1:37 PM
--- NOTE | 2021-09-02 13:38 | CT Scan Report ---
CT lumbar spine wo con CLINICAL HISTORY: acute flare back pain TECHNIQUE: Multidetector row helical CT of the lumbar spine was performed without administration of i ntravenous contrast. Coronal and sagittal reformations were obtained. Automated dose lowering techniq ues and/or adjustment according to patient size were utilized for this exam. Comparison: Comparison is made to CT lumbar spine 01/08/2019 FINDINGS: For counting purposes, the last complete intervertebral disc space is considered L5-S1. Again noted is posterior stabilization hardware spanning L3 S1. Degenerative changes are noted in the visualized spine. There is grade 1 retrolisthesis of L2-L3 with resulting severe bilateral neural fo raminal stenosis. Surrounding soft tissues are unremarkable. IMPRESSION: No evidence of acute fracture or traumatic subluxation. 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 ACT 112: Negative or not required by law. Electronically signed by: Sathya Leonard M.D. 09/02/2021 1:37 PM
[2021-09-02] MEDS: ROSUVASTATIN CALCIUM 5 MG TAB PO SCH (20:31)
[2021-09-02] MEDS: LIDOCAINE 5% 1 PATCH TD SCH (20:32)
[2021-09-02] MEDS: KETOROLAC TROMETHAMINE 15 MG/ML VIAL IV PRN (20:32)
[2021-09-03] MEDS: KETOROLAC TROMETHAMINE 15 MG/ML VIAL IV PRN (04:19)
[2021-09-03] MEDS: LEVOTHYROXINE SODIUM 50 MCG TABLET PO SCH (06:28)
[2021-09-03 06:41] LABS: Hematocrit (blood only) 35.1 % (37-47); Hemoglobin 11.6 g/dL (12.0-16.0); Mean Corpuscular Hemoglobin 30.9 pg (25-34); Mean Corpuscular Volume 93.6 fL (80-100); Mean Platelet Volume 10.8 fL (7.4-10.4); Platelet Count 196 K/uL (130-400); RDW Coefficient of Variation 13.2 % (11.5-14.5); RDW Standard Deviation 45.4 fL (36.4-46.3); Red Blood Count 3.75 M/uL (4.2-5.4); White Blood Count 8.91 K/uL (4.8-10.8)
[2021-09-03 07:08] LABS: Calcium 9.3 mg/dl (8.5-10.1); Creatinine Clr Calc Pharmacy 27.9 ml/min; Est GFR (Non-African American) 31.1 ml/min; Potassium 4.2 mmol/L (3.5-5.1)
[2021-09-03] MEDS: PANTOprazole 40 MG TAB PO SCH ×2 (09:07→20:50)
[2021-09-03] MEDS: ASPIRIN 81 MG ECTAB PO SCH ×2 (09:07→20:50)
[2021-09-03] MEDS: MONTELUKAST SODIUM 10 MG TABLET PO SCH (09:07)
[2021-09-03] MEDS: VERAPAMIL HCL 120 MG TABCR PO SCH (09:07)
--- NOTE | 2021-09-03 09:14 | Hospitalist Progress Note ---
Date of Service September 03, 2021 Assessment & Plan (1) Acute exacerbation of chronic low back pain: Plan: This is an 89yo F with a PMH of chronic back pain status post multiple surgeries, chronic diastolic heart failure, HTN, hypothyroidism and other medical problems listed below who presents with acute flare of back pain over past few days. Acute exacerbation of lumbar radiculopathy History chronic back pain status post multiple surgeries CT lumbar spine without evidence of acute fracture or traumatic subluxation. 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 Continue daily lasix, losartan Hypertension Initially slightly elevated secondary discomfort - normotensive now Continue home anti-hypertensives Hypothyroidism Euthyroid as of recent outpatient TSH Hyperglycemia likely prediabetes, hemoglobin A1c of 5.18 January 2020 DVT Ppx: SQ heparin Code status: FULL PCP: Suzanne Renae Dispo: Admitted to med/surg. Likely discharge home with outpatient PT tomorrow if Cr improves Patient seen in collaboration with Dr. Nuno. Please see addendum. Admission and Anticipated Discharge Date Admission Date: September 02, 2021 Supervising Physician Co-Signing Physician Notes 89yo F with a PMH of chronic back pain status post 3 lower back and 1 upper back surgery, chronic diastolic heart failure, HTN, hypothyroidism presented 09/01 with acute flare of back pain over past few days. PT/OT has been consulted. Continue to manage pain meds. 09/[address] showed no evidence of acute fracture or traumatic subluxation. 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 Patient reports pain being managed better now. Patient developed ANDREY over CKD. DC ketorolac, start diclofenac gel. Follow-up with BMP, on gentle hydration. Losartan held. Patient advised to follow-up with pain management clinic as an outpatient for ongoing pain control. Upon examination: Patient has focal tenderness over lower back with no erythema/woundtenderness improving. Well-healed surgical scar noted over the lower back. 1+ BLE edema. Heart lung and abdominal examination WNL. I have seen and examined the patient and have discussed the case with the provider above. I agree with the assessment and plan as stated. Subjective Seen and examined in 303-1. Lower back pain much improved today. Some TTP with movement but participating with PT and OT without issue. Has residual R>L lower extremity paresthesias from previous spinal surgery. Denies any pain in BLE. No fever, chills, lightheadedness, CP, SOB, N/V/D, abdominal pain or dysuria. Review of Systems Review of Systems: At least ten systems reviewed and negative except as noted in the HPI. Physical Exam Physical Exam: Gen: WD/WN, NAD, sitting in bedside chair, A&Ox3 HEENT: Normocephalic, atraumatic, conjunctivae moist, sclerae anicteric, mucous membranes moist Lung: Clear to Auscultation bilaterally, no wheezes/rales/rhonchi Heart: Regular rate, regular rhythm, no murmurs, rubs, or gallops Abdomen: Soft, NT, ND +BS x 4 Extremities: Mild TTP of lumbar spine bilaterally, no deformities noted, no edema Skin: Warm, no rash Results & Data Results & Data ([facility]) Vital Signs (Past 12 Hours) Vital Signs Temp Pulse Resp BP Pulse Ox 09/03/21 07:14 36.6 C 53 L 16 126/71 97 09/02/21 23:40 36.7 C 59 L 18 111/67 96 Laboratory Results Short CBC 09/03/21 Range/Units 05:55 WBC 8.91 (4.8-10.8) K/uL Hgb 11.6 L (12.0-16.0) g/dL Hct 35.1 L (37-47) % Plt Count 196 (130-400) K/uL BMP 09/03/21 05:55 Sodium 133 L Potassium 4.2 Chloride 104 Carbon Dioxide 22 BUN 25 H D Creatinine 1.48 H D Glucose 167 H Calcium 9.3 Diagnostic Findings Lumbar Spine CT 09/02/21 11:34 CT lumbar spine wo con CLINICAL HISTORY: acute flare back pain TECHNIQUE: Multidetector row helical CT of the lumbar spine was performed without administration of intravenous contrast. Coronal and sagittal reformations were obtained. Automated dose lowering techniques and/or adjustment according to patient size were utilized for this exam. Comparison: Comparison is made to CT lumbar spine 01/08/2019 FINDINGS: For counting purposes, the last complete intervertebral disc space is considered L5-S1. Again noted is posterior stabilization hardware spanning L3 S1. Degenerative changes are noted in the visualized spine. There is grade 1 retrolisthesis of L2-L3 with resulting severe bilateral neural foraminal stenosis. Surrounding soft tissues are unremarkable. IMPRESSION: No evidence of acute fracture or traumatic subluxation. 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 ACT 112: Negative or not required by law. Electronically signed by: Sathya Leonard M.D. 09/02/2021 1:37 PM
[2021-09-03] MEDS ORDERED: SODIUM CHLORIDE 0.9% 1000ML 1,000 ML IV SCH (09:45)
[2021-09-03] MEDS: ACETAMINOPHEN 500 MG TAB PO SCH ×2 (11:11→18:21)
[2021-09-03] MEDS ORDERED: DICLOFENAC SOD 1% GEL 100 GM TUBE EXT PRN (15:42)
[2021-09-03] MEDS: ROSUVASTATIN CALCIUM 5 MG TAB PO SCH (20:49)
[2021-09-03] MEDS: LIDOCAINE 5% 1 PATCH TD SCH (20:50)
[2021-09-03] MEDS: HEPARIN SOD 5,000 UNIT/0.5 ML VIAL SQ SCH (20:51)
[2021-09-04] MEDS: ACETAMINOPHEN 500 MG TAB PO SCH ×2 (01:31→09:13)
[2021-09-04] MEDS: LEVOTHYROXINE SODIUM 50 MCG TABLET PO SCH (05:19)
[2021-09-04] MEDS: HEPARIN SOD 5,000 UNIT/0.5 ML VIAL SQ SCH (09:10)
[2021-09-04] MEDS: ASPIRIN 81 MG ECTAB PO SCH (09:12)
[2021-09-04] MEDS: VERAPAMIL HCL 120 MG TABCR PO SCH (09:12)
[2021-09-04] MEDS: MONTELUKAST SODIUM 10 MG TABLET PO SCH (09:12)
[2021-09-04] MEDS: PANTOprazole 40 MG TAB PO SCH (09:12)
[2021-09-04 09:30] LABS: Hematocrit (blood only) 37.3 % (37-47); Hemoglobin 12.2 g/dL (12.0-16.0); Mean Corpuscular Hemoglobin 30.7 pg (25-34); Mean Corpuscular Hgb Conc 32.7 g/dL (32-36); Mean Corpuscular Volume 93.7 fL (80-100); Mean Platelet Volume 10.7 fL (7.4-10.4); Platelet Count 195 K/uL (130-400); RDW Coefficient of Variation 13.3 % (11.5-14.5); RDW Standard Deviation 45.5 fL (36.4-46.3); Red Blood Count 3.98 M/uL (4.2-5.4); White Blood Count 7.48 K/uL (4.8-10.8)
[2021-09-04 09:59] LABS: BUN Creatinine Ratio 22.5 (10-20); Calcium 9.2 mg/dl (8.5-10.1); Creatinine Clr Calc Pharmacy 35.3 ml/min; Est GFR (African American) 47.8 ml/min; Est GFR (Non-African American) 41.3 ml/min; Potassium 4.1 mmol/L (3.5-5.1)
--- NOTE | 2021-09-04 17:59 | Discharge Summary ---
Date of Service September 04, 2021 Admission HPI Per Admitting Provider History obtained from patient and records. Medical history significant for chronic diastolic heart failure (EF 55 to 60%, TTE 2019), hypertension, history of ventricular ectopy, meningioma of the brain, hypothyroidism, chronic back pain status post multiple surgeries. 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 4 days ago, patient noted worsening of chronic low back pain with radiation to the right lower extremity. Muscle spasms troubling as per patient. No unusual weakness, numbness, fever, chills. No incontinence symptoms. Patient does not recall any trauma or unusual twisting. No chest pain, no S OB. Intractable discomfort at the ER. 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 Admission Exam Per Admitting Provider GENERAL: Slightly uncomfortable, obese, pleasant, looks younger than stated age, no respiratory distress SKIN: Normal color, warm HEENT: [place] palpebral conjunctivae, no ptosis, dry buccal mucosa NECK : Supple, short neck, no tenderness CHEST : CTA, no tenderness HEART : RRR, no obvious murmurs ABDOMEN: Some distention, nontender BACK : Low back tenderness, positive SLR right EXTREMITIES : Minimal LE swelling with minimal LE tenderness (L > R) (chronic as per patient), no other conspicuous deformities noted NEUROLOGIC : Coherent, no facial asymmetry, no other gross focality Principal Diagnosis Acute exacerbation of chronic low back pain Stable severe lumbar stenosis Discharge Exam GENERAL: Alert and oriented x3. NAD, on RA. HEENT: No pallor, no icterus. Pupils equal, round and reactive to light. Oral mucosa moist. NECK: No JVD, no neck masses. HEART: S1 and S2 heard. Regular rate and rhythm. No murmur, no gallop. RESPIRATORY SYSTEM: Normal AP diameter. No accessory muscle use. No wheezing, no crackles. ABDOMEN: Soft, bowel sounds present, nontender, no distention. CENTRAL NERVOUS SYSTEM: Alert and oriented x3. No facial droop. Speech is clear. Obeys simple commands. Moves extremities. EXTREMITIES: No edema, no erythema seen. Back tenderness has resolved. Healed low back surgical scar noted. Discharge Data Allergies Allergy/AdvReac Type Severity Reaction Status Date / Time No Known Allergies Allergy Verified 09/01/21 22:21 Consultations 09/02/21 00:05 ED Decision to Admit Stat Ordered Studies 09/02/21 11:34 CT lumbar spine wo con Routine Hospital Course (1) Acute exacerbation of chronic low back pain: This is an 89yo F with a PMH of chronic back pain status post multiple surgeries, chronic diastolic heart failure, HTN, hypothyroidism and other medical problems listed below who presented 09/02 with acute flare of back pain over past few days [employer]. She was managed for the following while inpatient: Acute exacerbation of lumbar radiculopathy History chronic back pain status post multiple surgeries CT lumbar spine without evidence of acute fracture or traumatic subluxation. Posterior spinal fixation hardware with re-demonstration of severe neuroforami nal stenosis at L2-L3 Patient did not require tramadol, her pain was controlled with Tylenol and lidocaine patch. Patient discharged with Voltaren gel to be applied over the lower back as needed 4 times a day, advised not to take NSAIDs, can take Tylenol. Patient advised to continue physical therapy upon discharge. Can use warm and cold compresses. Patient will benefit from outpatient pain management clinic. Acute kidney injury in setting of CKD Cr increased to 1.48 (1.15 initially) In setting of IV toradol - discontinued Resolved on the day of discharge. Chronic diastolic heart failure (EF 55 to 60%, TTE 2019) Euvolemic. Continue daily lasix, losartan Hypertension Initially slightly elevated secondary discomfort - normotensive now Continue home anti-hypertensives Hypothyroidism Euthyroid as of recent outpatient TSH Hyperglycemia likely prediabetes, hemoglobin A1c of 5.18 January 2020 Patient discharged to home with home health services along with the following instruction at time discharge: Follow-up with your primary care physician within a week time. For your chronic low back pain, can use Tylenol extra strength as needed, avoid oral NSAIDs. Can use topical NSAIDs gel as needed up to 4 times a day over the lower back. Continue with the physical therapy. Follow-up with your primary care physician within a week time. Establish and follow-up with pain management clinic for long-term management of your chronic low back pain. Total Time Total Time Spent Total Time Spent (In Minutes): 40 Discharge Plan Discharge Items Patient Disposition: Home - Home Health Services Reason For Visit: BACK PAIN Discharge Diagnosis: Acute exacerbation of chronic low back pain Stable severe lumbar stenosis Activity: Resume your previous activity Non-emergency contact: Primary Care Provider Call non-emergency contact if: you have any medication questions, your symptoms worsen, your pain is worsening and your temperature is above 101 Follow-up/Referrals: Sarah Renae DO [Primary Care Provider] - (Date & Time 09/09/2021 10:20 AM Provider Ava Galvez MD Department Family [facility] ) Diet: Heart Healthy Addtl Attending Provider Instructions: Follow-up with your primary care physician within a week time. For your chronic low back pain, can use Tylenol extra strength as needed, avoid oral NSAIDs. Can use topical NSAIDs gel as needed up to 4 times a day over the lower back. Continue with the physical therapy. Follow-up with your primary care physician within a week time. Establish and follow-up with pain management clinic for long-term management of your chronic low back pain. Pending Studies at Discharge: No Stand-Alone Forms: My [employer], Smoking Cessation Medications and DC Order Prescriptions: New diclofenac sodium [Voltaren Arthritis Pain] 1 % Gel 2 g EXT QID PRN (Reason: low back pain) Qty: 100 RF: 3 Continued furosemide 20 mg Tablet 20 mg PO QAM Qty: 0 RF: 0 levothyroxine 50 mcg Tablet 50 mcg PO QAM Qty: 0 RF: 0 montelukast 10 mg Tablet 10 mg PO QAM Qty: 0 RF: 0 cholecalciferol (vitamin D3) 1,000 unit capsule 2,000 unit PO Q OTHER DAY RF: 0 omeprazole 20 mg capsule,delayed release(DR/EC) 20 mg PO BID RF: 0 magnesium oxide 400 mg (241.3 mg magnesium) tablet 400 mg PO QAM Qty: 90 RF: 0 verapamil 120 mg Tablet Extended Release 120 mg PO QAM RF: 0 prednisone 10 mg Tablet 10 mg PO DAILY PRN (Reason: BRONCHITIS) RF: 0 losartan 25 mg Tablet 25 mg PO QAM RF: 0 levalbuterol tartrate 45 mcg/actuation Hfa Aerosol Inhaler 2 inh INHALATION Q6H PRN (Reason: Shortness Of Breath) RF: 0 aspirin 81 mg Tablet,Delayed Release (Dr/Ec) 81 mg PO BID RF: 0 rosuvastatin 5 mg tablet 5 mg PO HS RF: 0 cinacalcet 30 mg tablet 30 mg PO [id number] RF: 0 acetaminophen [Tylenol Extra Strength] 500 mg Tablet 500 - 1,000 mg PO Q6H PRN (Reason: Pain) RF: 0 Discharge Orders: Discharge Order (Routine); Ordered 09/04/21 Ordered By: Devyn Nuno Admission Data Admit Date/Time: 09/03/21 09:14 Attending Provider: Devyn Nuno Admit Provider: Adria Queen Primary Care Provider: Sarah Renae Other Providers: Adria Queen ; Karolina Álavrez ; [facility] Other Interventions: Discharge Summary Assessment (RN) Last Done: 09/04/21 13:40
== END 2021-09-04 14:22 | disposition home health service (06) | DRG 552 ==
LOC: ED 21:36 → 3E 21:36
DX: M48.061 Spinal stenosis, lumbar region without neurogenic claudication; N18.9 Chronic kidney disease, unspecified; Z79.82 Long term (current) use of aspirin; E21.3 Hyperparathyroidism, unspecified; M54.50 Low back pain, unspecified; M54.16 Radiculopathy, lumbar region; K21.9 Gastro-esophageal reflux disease without esophagitis; Z68.36 Body mass index [BMI] 36.0-36.9, adult; Z79.51 Long term (current) use of inhaled steroids; I13.0 Hypertensive heart and chronic kidney disease with heart failure and stage 1 through stage 4 chronic kidney disease, or unspecified chronic kidney disease; N17.9 Acute kidney failure, unspecified; E66.9 Obesity, unspecified; I50.32 Chronic diastolic (congestive) heart failure; R26.9 Unspecified abnormalities of gait and mobility; E03.9 Hypothyroidism, unspecified; Z79.899 Other long term (current) drug therapy; G89.29 Other chronic pain; Z79.890 Hormone replacement therapy; Z20.822 Contact with and (suspected) exposure to COVID-19; R73.03 Prediabetes